=== PATIENT | male | born 1940 | race Caucasian/White ===

== ENCOUNTER → 2016-06-19 | Outpatient (CLI) | payer OTHER, BC ==
[~2016-06-19] MED LIST: ALPR-411 PO; ASPEC81 PO; CARV3.122 PO; CITA20TA9 PO; CLOP1TAB15 PO; FENO134C2 PO; FINA5TAB PO; FOLI1TAB7 PO; LISI-725 PO; LPT/40 PO; MECL1TAB42 PO; METF-384 PO; PANT40TA PO; TERA5CAP PO
[2016-06-19 13:19] LABS: HEMATOCRIT 37.3 % (42-52); MEAN CELL VOLUME 96.4 fL (80-100); MEAN CORPUSCULAR HEMOGLOBIN 31.8 pg (25-34); MEAN PLATELET VOLUME 9.8 fL (7.4-10.4); PLATELET COUNT 204 K/uL (130-400); RED BLOOD COUNT 3.87 M/uL (4.7-6.1); WHITE BLOOD COUNT 26.48 K/uL (4.8-10.8)
[2016-06-19 13:33] LABS: PROTHROMBIN TIME (PATIENT) 10.8 SECONDS (9.0-12.0)
[2016-06-19 14:19] LABS: BLOOD UREA NITROGEN 19 mg/dl (7-18); CALCIUM 9.7 mg/dl (8.5-10.1); CARBON DIOXIDE 24 mmol/L (21-32); CHLORIDE 108 mmol/L (98-107); GLUCOSE 179 mg/dl (70-99); SODIUM 142 mmol/L (136-145)
== END | disposition home or self-care (01) ==
LOC: C.LABMFLN 09:47
PROVIDERS: ATTEND Internal Medicine Cardiovascular Disease
DX: I10 Essential (primary) hypertension (principal); R42 Dizziness and giddiness; R06.09 Other forms of dyspnea; R94.39 Abnormal result of other cardiovascular function study; I42.9 Cardiomyopathy, unspecified

== ENCOUNTER 2016-06-28 06:49 | Observation (INO) | payer OTHER, BC ==
[~2016-06-28] VITALS: Ht 177.8 cm; Wt 86.7 kg
[2016-06-28] VITALS (14 sets, daily range): BP systolic 124–154; BP diastolic 65–80; PULSE 56–69; TEMP 36.6–36.8; O2SAT 87–98; Ht 177.8 cm; Wt 86.7 kg
[~2016-06-28 06:49] MED LIST changes: -ASPEC81 PO
[2016-06-28] MEDS ORDERED: NiCARDipine HCL INJ 2.5 MG/ML 10 ML AMP ONE (10:30)
[2016-06-28] MEDS ORDERED: HEPARIN SOD (PORCINE) 1000 UNIT/ML 10 ML VIAL ONE ×3 (10:30→12:23)
[2016-06-28] MEDS ORDERED: FENTANYL CITRATE INJ 50 MCG/1 ML 2 ML VIAL ONE (10:31)
[2016-06-28] MEDS ORDERED: MIDAZOLAM HCL 1 MG/ML 2ML VIAL ONE (10:31)
[2016-06-28] MEDS ORDERED: NITROGLYCERIN/D5W 100MCG/ML 20ML SYR ONE (10:33)
--- NOTE | 2016-06-28 10:57 | Procedure Note ---
Pre-Mod Sedation Assessment General Date of Moderate Sedation: June 28, 2016. Vital Signs: Vital Signs Past 12 Hours Date Time Temp Pulse Resp B/P Pulse Ox O2 Delivery O2 Flow Rate FiO2 06/28/16 07:13 36.6 68 16 153/73 98 Room Air Review Cardiovascular: regular rate, rhythm, no edema Abdomen: normal bowel sounds, non tender Lungs: chest non-tender, lungs clear Airway Class: III Pre-Sedation Airway Assessment Oral Cavity: Dentures Able to Visualize Vocal Cords: No Short Thick Neck: No Hx of Sleep Apnea: No Smoking Status: Former Smoker Mallampati Classification: Class III ASA Classification: Class II Procedure Planning Contraindications-for Mod Sed: None Yes Notes The planned sedation has been discussed with the patient and consent obtained. I have identified the patient, determined the appropriateness of sedation and have assessed the patient immediately prior to the procedure. All medicine(s) and interventions are by my order.
[2016-06-28] MEDS ORDERED: ACETAMINOPHEN 325 MG TAB PO PRN (13:30)
[2016-06-28] MEDS ORDERED: SODIUM CHLORIDE 0.9% 1000ML 1,000 ML IV SCH (13:30)
[2016-06-28] MEDS ORDERED: CLOPIDOGREL BISULFATE 300 MG TAB PO ONE (13:32)
[2016-06-28] MEDS ORDERED: IV FLUIDS COMPLETED PRN (14:45)
--- NOTE | 2016-06-28 15:19 | Procedure Note ---
Post-Mod Sedation Assessment General Date of Moderate Sedation June 28, 2016. Vital Signs: Vital Signs Past 12 Hours Date Time Temp Pulse Resp B/P Pulse Ox O2 Delivery O2 Flow Rate FiO2 06/28/16 07:13 36.6 68 16 153/73 98 Room Air Review - Discharge Criteria Vital Signs Stable: Yes Alert/Oriented/Conversant: Yes Returned to Baseline Mental St: Yes Nausea Absent/Minimal: Yes Pain/Discomfort/Absent/Minimal: Yes Normal/Baseline Respirations: Yes Active Bleeding?: No Pt Received D/C Instructions: N/A Prescriptions Given: None Specific Proced. D/C Criteria Distal Pulses Present (Cardiac: Yes Groin site assessed-Card Cath: N/A Voided Prior To Discharge: N/A Discharged Patients Adult Escort/Transportation: Yes
[2016-06-28] MEDS: MECLIZINE HCL 25 MG TAB PO SCH ×2 (17:47→21:38)
[2016-06-28] MEDS: CARVEDILOL 3.125 MG TAB PO SCH (21:39)
[2016-06-29] MEDS ORDERED: LORAZEPAM INJ 0.5 MG in SYRINGE 0.75 ML IV PRN (03:00)
[2016-06-29] MEDS ORDERED: LORAZEPAM 2 MG/ML 1 ML VIAL IV PRN (03:00)
[2016-06-29] MEDS ORDERED: NURSING VERBAL MED ORDER ONE ×2 (03:00)
[2016-06-29 04:29] VITALS: BP 126/68; PULSE 70; TEMP 36.8; O2SAT 94
[2016-06-29 06:00] LABS: MEAN CORPUSCULAR HGB CONC 33.2 g/dl (32-36); MEAN PLATELET VOLUME 9.4 fL (7.4-10.4); PLATELET COUNT 170 K/uL (130-400)
[2016-06-29 06:33] LABS: BUN/CREATININE RATIO 18.6 (10-20); CALCIUM 8.2 mg/dl (8.5-10.1); CREATININE 0.86 mg/dl (0.60-1.40); POTASSIUM 3.9 mmol/L (3.5-5.1)
[2016-06-29 06:59] LABS: COMPLETE YES; EOSINOPHIL % 5.3 %; HEMATOCRIT 34.6 % (42-52); MEAN CELL VOLUME 96.6 fL (80-100); MEAN CORPUSCULAR HEMOGLOBIN 32.1 pg (25-34); NEUTROPHILS % 18.4 %; RED BLOOD COUNT 3.58 M/uL (4.7-6.1); SMUDGE CELLS PRESENT
[2016-06-29 07:06] VITALS: BP 131/75; PULSE 71; TEMP 36.7; O2SAT 92
[2016-06-29 08:00] VITALS: O2SAT 96
[2016-06-29] MEDS: CARVEDILOL 3.125 MG TAB PO SCH (08:21)
[2016-06-29] MEDS: MECLIZINE HCL 25 MG TAB PO SCH (08:21)
[2016-06-29] MEDS ORDERED: FINASTERIDE 5 MG TAB PO SCH (09:00)
[2016-06-29] MEDS ORDERED: CLOPIDOGREL BISULFATE 75 MG TAB PO SCH (09:00)
[2016-06-29] MEDS ORDERED: LISINOPRIL 20 MG TAB PO SCH (09:00)
[2016-06-29] MEDS ORDERED: FENOFIBRATE 145 MG TAB PO SCH (09:00)
[2016-06-29] MEDS ORDERED: ATORVASTATIN 40 MG TAB PO SCH (09:00)
[2016-06-29] MEDS ORDERED: ALPRAZOLAM 0.5 MG TAB PO SCH (09:00)
[2016-06-29] MEDS ORDERED: CITALOPRAM 20 MG TAB PO SCH (09:00)
[2016-06-29] MEDS ORDERED: PANTOprazole SOD 40 MG TAB PO SCH (09:00)
[2016-06-29] MEDS ORDERED: ASPIRIN 81 MG ECTAB PO SCH (09:00)
[2016-06-29] MEDS ORDERED: ASPEC81 PO (09:56)
--- NOTE | 2016-06-29 10:00 | Discharge Instructions ---
Discharge Instructions Procedure Procedure Date: June 29, 2016. Reason for Visit: *Dr Spears To Do* Abnormal Stress Echo. Discharge Discharge Date: June 29, 2016. Discharge Diagnosis: Coronary artery disease Last Recorded Wt (Kilograms): 86.700 Medications Restart Stopped Medication(s): Can resume Metformin in 48 hours. Anesthesia Post Anesthesia Instructions: If you have had IV Sedation: * Do not drive today. * Do not make important decisions or sign legal documents today. * Call surgeon for: 1. Temperature elevations greater than 101 degrees F. 2. Uncontrollable pain. 3. Excessive bleeding. 4. Persistent nausea and vomiting. 5. Medication intolerance (nausea, vomiting or rash). * For nausea and vomiting use only clear liquids such as: tea, soda, bouillon until nausea subsides, then gradually increase diet as tolerated. * If you have any concerns or questions, call your cardiologists office. If physician is unavailable and it is an emergency, call 911 or go to the nearest emergency room. Instructions Activity Recommendations: limitations as noted below Recommended Home Diet: resume previous diet Allergies: Coded Allergies: No Known Allergies (Unverified , 02/24/12) Follow Up Additional Instructions: ACTIVITY RECOMMENDATIONS: It is common to feel weak and fatigue for a few days. * Do not drive or operate any motorized equipment for the next day. * Limit stair usage (2 or 3 trips a day only) for the next three days. * Do not lift anything heavier than 10 pounds for the next three days. * Do not engage in vigorous exercise or any sports for the next five days. * You may shower the day after your procedure, but do not immerse the area for three days. Cleanse the site gently with soap and water. SPECIAL CARE INSTRUCTIONS: * You may replace the pressure dressing or band-aid the morning after the procedure. * After your procedure, it is normal to have a small bruise or small lump at the site. Examine your site daily for any change in the bruise or lump, redness, swelling, drainage or numbness. Notify your doctor if any change. BLEEDING: * If there is a small amount of bleeding at the site, lie down and apply firm pressure with a clean cloth for ten minutes. When the bleeding stops, lie quietly keeping the procedure limb straight for six hours. Notify your doctor as soon as possible. * If the bleeding does not stop after ten minutes or if there is a large amount of bleeding or spurting, call 911 immediately. Continue to lie down and hold firm pressure until help arrives. SKIN IRRITATION: * You may experience some redness and/or swelling in the area where radiation was administered. If any skin irritation occurs, please contact your family physician. FOLLOW UP VISIT: Keep any scheduled doctor appointments. Follow-up with: Follow-up with Primary Care next week -- Discuss elevated white blood count and possible lung evaluation and/or home oxygen. Follow-up with Dr. Murrieta in 2-3 weeks. Eugene Daigley Recommendations: Call your doctor if: * Temperature above 101 degrees * Pain not relieved by pain medicine ordered * There is increased drainage or redness from any incision * You have any unanswered questions or concerns. Your Doctors Instructions noted above were prepared by provider Ricardo Spears. Patient Signature Section: Patient Instructions Signature Page Elton Walker Patient (or Guardian) Signature/Date: I have read and understand the instructions given to me by my caregivers. Caregiver/RN/Doctor Signature/Date: The above-named patient and/or guardian has received patient instructions on this date. + Original Patient Signature Page (only) stays with chart. Please make copy for patient.
[2016-06-29 11:28] VITALS: BP 131/75; PULSE 71; TEMP 36.7; O2SAT 96
--- NOTE | 2016-06-30 22:50 | Cardiac Catheterization ---
Procedure Note Procedure Date June 28, 2016. Pre-Procedure Diagnosis Angina, Positive Stress Test, Cardiomyopathy AUC Score 7 Post-Procedure Diagnosis Severe CAD, Successful PCI, Normal Intracardiac Pressures Procedure(s) Performed Coronary Angiography, Left Heart Cath, Drug Eluting Stent, IVUS Wheat Combine Driver Dr. Spears Tumor Registrar(s) adam Estimated Blood Loss 37 Medication(s) Clopidogrel, Fentanyl, Heparin, Nicardipine, Nitroglycerin, Versed, Lidocaine 1% Summary of Findings Indication: Positive stress test Access: 6Fr Right Radial artery Catheters: Hatley, JL4, JR4, AR1, AR2, AL1; EBU 3.5 guide Findings: LM - Luminal irregularities LAD - Calcified, eccentric, 50-60% early-mid LAD stenosis; distal luminal irregularities; small to moderate caliber 1st diagonal with 70-80% proximal stenosis; small 2nd diagonal with 70-80% ostial stenosis Circumflex - Dominant, large caliber vessel with 30-40% mid segment stenosis; large OM3 with mild proximal disease and 80% focal mid segment stenosis; Distal circumflex 80-90% stenosis. RCA - Poorly visualized despite multiple catheters (best seen with AR1). LVEDP - 15 IVUS assessment of proximal to mid LAD -- mild to moderately calcified, max stenosis 50-60% (minimum CSA 4.5 cm2 in the mid segment). LAD stenosis felt to be intermediate. -- PCI -- Antithrombotic therapy: Heparin, Clopidogrel Procedure: Left main cannulated with EBU 3.5 guide BMW placed into distal LAD for IVUS assessment Wire pulled back and passed across OM3 lesion into distal vessel OM3 lesion predilated with 2.5 compliant balloon Dilated lesion stented with 2.75 x 15 Xience HENRIETTA Stent post-dilated with 2.75 noncompliant balloon Wire pulled back and placed across distal circumflex into distal PDA. Lesion predilated with 2.5 balloon Distal circumflex stented with 2.75 x 28 Xience HENRIETTA Stent post-dilated with 3.0 NC balloon. IC vasodilators administered for spasm Post procedure CAN 3 flow, stents well expanded with minimal residual stenosis and no apparent cardiac complications. Arterial Closure: TR Band Summary: 1. Severe multivessel coronary artery disease - 50-60% calcified mid LAD stenosis (appears moderate by IVUS) - 70% proximal 1st diagonal - 80% OM3 - 80-90% distal circumflex - Non-dominant RCA poorly visualized 2. Normal intracardiac filling pressure 3. Successful PCI of OM3 with 2.75 x 15 Xience HENRIETTA and distal circumflex with 2.75 x 28 Xience HENRIETTA Recommendations: To PCU for continued monitoring Loaded with Clopidogrel 300 mg in radiographer cardiac catheterization Continue dual-antiplatelet therapy with ASA and plavix Continue statin, and ASCVD risk factor modification Consult cardiac Rehab If continued symptoms suggestive of angina would consider FFR/PCI of LAD, possible PCI of diagonal. In the future for improved visualization of RCA consider angiography from left radial artery/femoral artery. Hemodynamics Rest Ao: 117/59/83 Final Ao: 133/55/86 LV: 123/15 Recommendations PCI without planned CABG Specimens None Radiation Exposure (mGy) 7187 Contrast (mls) 360 Fluids (cc crystalloids) 222 Drains None Anesthesia Moderate Procedural Complication(s) None Disposition PCU ACC Data Cardiac Status Clinical evaluation leading to the procedure CAD Presntation: Positive Stress Test Anginal Classification: CCS III Heart Failure: No, NYHA Class: CCS I Cardiogenic Shock w/in 24Hrs: No Cardiac Arrest w/in 24Hrs: No Imaging studies past 6 months: Yes Stress studies past 6 months: Yes Standard Exercise Stress Test: No Stress Echocardiogram: Yes - Positive, Risk/Extent of Ischemia (Low) Stress Testing w/SPECT MPI: No Cardiac CTA: No Coronary Anatomy Dominant: Left Left Main (% Stenosis): Normal LAD (% Stenosis): Mid (50-60) D1 (% Stenosis): Proximal (70) D2 (% Stenosis): Ostial (70) Circumflex (% Stenosis): Mid (30-40), Distal OM3 (% Stenosis): Mid (80) Diagnostic Physician's Name: Chinedu Spears MD Status: Elective Closure Device Percutaneous Entry Location: Radial Closure Device: Radial Band Recommendations: PCI without planned CABG PCI Indication: + Stress Test Lesion Segment Name: Distal circumflex Culprit Artery: Yes Stenosis Prior to Rx (%): 80 Chronic Total Occlusion: No IVUS: No FFR: No Pre-Procedure CAN Flow: 3 Previously Treated Lesion: No Lesion Complexity: Non-High/Non-C Lesion Length (mm): 20 Thrombus Present: No Guidewire Across Lesion: Yes Guidewire: Stenosis Post-Procedure (%): 0 Post-Procedure CAN Flow: 3 Device(s) Deployed: Yes Intraprocedure Events Significant Dissection: No Perforation: No
--- NOTE | 2016-07-11 14:22 | DISCHARGE SUMMARY ---
PRINCIPAL DIAGNOSES: Coronary artery disease. PROCEDURES: 1. Coronary angiography. 1. IVUS assessment of mid LAD. 2. PCI of OM3 and distal circumflex with 2 drug-eluting stents (2.75 x 15 Xience, 2.75 x 28 Xience). HISTORY OF PRESENT ILLNESS: Mr. Walker is a very pleasant 76-year-old man followed by Dr. Murrieta for his cardiovascular care as an outpatient. He was referred for cardiac catheterization due to decreased exercise tolerance and dyspnea on exertion occurring over weeks to months. This was noted in the setting of his cardiac risk factors including hypertension, hyperlipidemia, diabetes and a positive stress test which showed poor functional capacity and possible anterior septal, inferior wall ischemia on recent stress echo. HOSPITAL COURSE: The patient was taken to cardiac catheterization lab. He underwent coronary angiography via right radial artery. He was found to have a intermediate lesion that was calcified in his mid LAD along with 70% proximal first diagonal lesion, 80% OM3 lesion and 80-90% distal circumflex. Despite multiple catheters his nondominant RCA was poorly visualized. Mid LAD lesion would further evaluate with IVUS and was thought to be most consistent with borderline disease and decision was made to forgo intervention on the LAD. The patient underwent stent placement with 2 drug-eluting stents to his OM3 and his distal circumflex (OM3 2.75 x 15 Xience, distal circumflex 2.75 x 28 Xience). The patient tolerated the procedure well. He was admitted to telemetry post-procedure for further observation. He had no further events on telemetry. He had no recurrent chest pain overnight. In the morning he was feeling at baseline but it was noted that when he walked round the [place] his oxygen levels did drop into the mid 80s. Did discuss with patient on discharge potential for home oxygen but stated he was not interested. The patient was also noted again to have a significant leukocytosis on repeat follow-up labs. This was noted prior to admission. The patient stated that he has planned followup with hematology in the upcoming weeks. Going forward if the patient would have continued symptoms following hematology workup consideration could be given to further evaluation/intervention of proximal mid LAD and first diagonal. Would attempt to better visualize RCA via femoral approach. The patient discharged to home and will follow up with Dr. Murrieta in 3-4 weeks. DISCHARGE MEDICATIONS: 1. Aspirin 81. 2. Alprazolam 0.25 daily. 3. Atorvastatin 40 mg at bedtime. 4. Carvedilol 3.125 b.i.d. 5. Citalopram 1 tab p.o. daily. 6. Clopidogrel 75 mg daily. 7. Fenofibrate 134 mg p.o. daily. 8. Finasteride 5 mg daily. 9. Folic acid 1 mg daily. 10. Lisinopril 20 mg daily. 11. Meclizine 25 mg t.i.d. 12. Metformin 1000 mg b.i.d. (to be restarted 48 hours after procedure). 13. Protonix 40 mg daily. 14. Terazosin 5 mg daily. MTDD
== END 2016-06-29 11:59 | disposition home or self-care (01) ==
LOC: ENRESERVDT → ENRESERVTM → C.CATH 06:49 → C.2E 13:43
PROVIDERS: ADMIT Internal Medicine Interventional Cardiology; ATTEND Internal Medicine Interventional Cardiology
DX: I25.119 Atherosclerotic heart disease of native coronary artery with unspecified angina pectoris (principal); I42.9 Cardiomyopathy, unspecified; I47.2 Ventricular tachycardia; I10 Essential (primary) hypertension; E78.5 Hyperlipidemia, unspecified; E11.9 Type 2 diabetes mellitus without complications; K21.9 Gastro-esophageal reflux disease without esophagitis; E72.11 Homocystinuria; Z86.73 Personal history of transient ischemic attack (TIA), and cerebral infarction without residual deficits; Z79.84 Long term (current) use of oral hypoglycemic drugs; Z82.49 Family history of ischemic heart disease and other diseases of the circulatory system; Z82.3 Family history of stroke; Z87.891 Personal history of nicotine dependence
CPT/HCPCS: 92978; 93005; 93458; C9600; C9601

== ENCOUNTER → 2017-03-14 | Outpatient (CLI) | payer OTHER, BC ==
[~2017-03-14] MED LIST changes: +ASPEC81 PO; -FOLI1TAB7 PO; +FOLI1TAB8 PO
--- NOTE | 2017-03-14 12:57 | DIAGNOSTIC IMAGING REPORT ---
MRI OF THE BRAIN WITHOUT CONTRAST CLINICAL HISTORY: R42 [id number] COMPARISON STUDY: None. FINDINGS: Sagittal T1, axial diffusion, proton density and T2 weighted axial, coronal FLAIR, and axial T1-weighted images were acquired. No intra or extra-axial mass lesions are visualized Axial diffusion-weighted images reveal no evidence of acute or subacute infarction. There is no evidence of ventricular dilatation. Proton density T2-weighted and FLAIR images reveal moderate foci of increased T2 signal within the white matter, likely on a small vessel basis. There are no abnormal flow voids. 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 Correlation with any history of lymphoma or metastatic disease is recommended. A neck CT could be obtained in follow-up for confirmation and further evaluation. IMPRESSION: 1. No evidence of intracranial mass 2. No evidence of acute or subacute infarction 3. 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 Suspected cervical lymphadenopathy. CT scanning of the neck is recommended in follow-up for confirmation. Electronically signed by: Elijah Soria M.D. 03/14/2017 12:56 PM Dictated Date/Time: 03/14/2017 12:50 PM
== END | disposition home or self-care (01) ==
LOC: C.MRIBC 11:03
PROVIDERS: ATTEND Family Medicine
DX: R42 Dizziness and giddiness (principal)

== ENCOUNTER → 2017-04-08 | Outpatient (CLI) | payer OTHER, BC ==
[~2017-04-08] MED LIST changes: +PERFLUTREN LIPID MICROSPHERE (DEFINITY) IV ONE; +REGADENOSON 0.4 MG/5 ML SYR IV ONE
--- NOTE | 2017-04-08 17:20 | ECHOCARDIOGRAM REPORT ---
*NOTICE TO RECEIVING REPUBLICAN AGENCY This information is strictly Confidential and protected under [place] law. [place] law prohibits you from making any further disclosure of this information unless further disclosure is expressly permitted by the written consent of the person to whom it pertains or is authorized by law. A general authorization for the release of medical or other information is not sufficient for this purpose. Hospital accepts no responsibility if the information is made available to any other person, INCLUDING THE PATIENT. Interpretation Summary * Name: RO KONG Study Date: 04/08/2017 02:29 PM * Patient Location: [facility] HR: 76 * : 1940 (M/d/yyyy) Gender: Male Height: 70 in * Age: 76 yrs Ethnicity: [place] Weight: 206 lb * Ordering Physician: Salomon Murrieta * Referring Physician: Salomon Murrieta. * Performed By: Roshni Mercedes RDCS * * Reason For Study: Arteriosclerosis of coronary artery (414.00)' Cardiomyopathy (425.4); Dyspnea on Exertion (786.09). * BSA: 2.1 m2 * -- Conclusions -- * 1. Normal LV size. Borderline concentric LVH. * 2. Mild LV dysfunction. LVEF 40-45%. Inferior, inferolateral akinesis. Abnormal septal motion consistent with conduction delay. * 3. Grade I diastolic dysfunction. * 4. Normal RV size and function. * 5. Aortic valve sclerosis without stenosis. * 6. Normal estimated RA and PA pressures. * 7. No prior studies for comparison. Procedure Details * A complete two-dimensional transthoracic echocardiogram was performed (2D, M-mode, Doppler and color flow Doppler). Left Ventricle * The left ventricle is grossly normal size. * There is borderline concentric left ventricular hypertrophy. * Ejection Fraction = 40-45%. * Septal motion is consistent with conduction abnormality. Right Ventricle * The right ventricle is grossly normal size. * The right ventricular systolic function is normal as assessed by tricuspid annular plane systolic excursion (TAPSE) (normal >1.5 cm). Atria * Borderline left atrial enlargement. * Right atrial size is normal. * No ASD detected; PFO is not assessed. Mitral Valve * There is mild mitral annular calcification. * There is no mitral valve stenosis. * There is trace mitral regurgitation. Tricuspid Valve * The tricuspid valve is not well visualized, but is grossly normal. * There is no tricuspid stenosis. * There is trace tricuspid regurgitation. Aortic Valve * Aortic valve sclerosis mild, without significant aortic valvular stenosis. * The aortic valve is trileaflet. * No hemodynamically significant valvular aortic stenosis. * There is no significant aortic regurgitation. Pulmonic Valve * The pulmonary valve is inadequately visualized, but the Doppler data is adequate for interpretation. * Pulmonic stenosis is absent. * Trace pulmonic valvular regurgitation. Great Vessels * The aortic root and proximal ascending aorta are normal sized. Pericardium/Pleural * There is no pericardial effusion. Great Vessels * There is no evidence of pulmonary hypertension. The PA systolic pressure is less than 36 mmHg. * Normal inferior vena cava size and collapsability with sniff indicates a normal right atrial pressure of 3 mmHg Left Ventricular Diastolic Function * Grade I diastolic dysfunction, (abnormal relaxation pattern). MMode 2D Measurements and Calculations IVSd 1.1 cm IVSs 1.8 cm LVIDd 5.1 cm LVIDs 4.1 cm LVPWd 1.8 cm LVPWs 2.0 cm IVS/LVPW 0.61 FS 21.1 % EDV(Teich) 126.0 ml ESV(Teich) 72.3 ml EF(Teich) 42.6 % EDV(cubed) 135.7 ml ESV(cubed) 66.7 ml EF(cubed) 50.9 % % IVS thick 66.6 % % LVPW thick 9.4 % LV mass(C)d 318.6 grams LV mass(C)dI 150.7 grams/m\S\2 LV mass(C)s 346.4 grams LV mass(C)sI 163.9 grams/m\S\2 SV(Teich) 53.7 ml SI(Teich) 25.4 ml/m\S\2 SV(cubed) 69.0 ml SI(cubed) 32.6 ml/m\S\2 Ao root diam 3.4 cm Ao root area 9.1 cm\S\2 ACS 1.7 cm LA dimension 3.8 cm LA/Ao 1.1 LVAd ap4 40.0 cm\S\2 LVLd ap4 9.0 cm EDV(MOD-sp4) 147.6 ml EDV(sp4-el) 150.6 ml LVAs ap4 27.5 cm\S\2 LVLs ap4 8.1 cm ESV(MOD-sp4) 79.1 ml ESV(sp4-el) 79.0 ml EF(MOD-sp4) 46.4 % EF(sp4-el) 47.5 % LVAd ap2 38.3 cm\S\2 LVLd ap2 9.3 cm EDV(MOD-sp2) 132.5 ml EDV(sp2-el) 133.1 ml LVAs ap2 28.3 cm\S\2 LVLs ap2 8.7 cm ESV(MOD-sp2) 78.6 ml ESV(sp2-el) 78.0 ml EF(MOD-sp2) 40.7 % EF(sp2-el) 41.4 % LVLd %diff 3.5 % EDV(MOD-bp) 141.9 ml LVLs %diff 7.0 % ESV(MOD-bp) 79.9 ml EF(MOD-bp) 43.7 % SV(MOD-sp4) 68.5 ml SI(MOD-sp4) 32.4 ml/m\S\2 SV(MOD-sp2) 53.9 ml SI(MOD-sp2) 25.5 ml/m\S\2 SV(MOD-bp) 61.9 ml SI(MOD-bp) 29.3 ml/m\S\2 SV(sp4-el) 71.5 ml SI(sp4-el) 33.8 ml/m\S\2 SV(sp2-el) 55.1 ml SI(sp2-el) 26.1 ml/m\S\2 Doppler Measurements and Calculations MV E max eduardo 57.7 cm/sec MV A max eduardo 82.5 cm/sec MV E/A 0.70 MV dec time 0.19 sec Ao V2 max 135.7 cm/sec Ao max PG 7.4 mmHg Ao max PG (full) 5.0 mmHg LV V1 max PG 2.4 mmHg LV V1 max 77.6 cm/sec PA V2 max 109.7 cm/sec PA max PG 4.8 mmHg PI max eduardo 126.0 cm/sec PI max PG 6.3 mmHg PI dec slope 224.3 cm/sec\S\2 PI P1/2t 164.5 msec TR max eduardo 216.1 cm/sec
--- NOTE | 2017-04-08 18:31 | MYOCARDIAL PERFUSION SCAN ---
NUCLEAR STRESS TEST STUDY REQUESTED BY: Dr. Salomon Murrieta. ONE-DAY NUCLEAR MEDICINE TECHNETIUM-99M CARDIOLITE MYOCARDIAL PERFUSION SCAN INDICATION: History of coronary artery disease status post prior PCI with stenting, ischemic cardiomyopathy, and dyspnea on exertion. ECHOCARDIOGRAM: Normal sinus rhythm at a ventricular rate of 77. There was first degree AV block, nonspecific intraventricular conduction delay, left axis deviation and questionable anterolateral and inferior prior infarct. STRESS ECHOCARDIOGRAM: With Lexiscan, there were occasional PVCs. No significant ST abnormalities. Heart rate did not significantly change. TECHNIQUE: For the stress portion of the study 31.1 mCi of technetium-99m Cardiolite IV was injected at 13:25 p.m. on 04/08/2017. Thirty minutes following injection, imaging of the heart was performed in multiple projections. For the rest portion of the study, 11.0 mCi of technetium-99m Cardiolite was injected IV at 11:30. One hour following injection, the imaging of the heart was performed in the same projections. FINDINGS: Raw images were reviewed in detail. There was minimal gut uptake. There was minimal diaphragmatic attenuation and there was abnormal shoulder uptake bilaterally but no other significant extracardiac pathologic uptake. The short axis, vertical long axis, horizontal long axis images were reviewed in detail. There was a primarily fixed moderate intensity moderate in size mid inferior, inferolateral perfusion defect also involving the apical lateral and true apex. There was corresponding wall motion abnormality with hypokinesis in the mid inferior, inferolateral and apical lateral segments as well as true apex. Overall, EF was preserved with an EF of 50%. LV size was normal with an end-diastolic volume of 115. IMPRESSION: 1. Primarily fixed inferolateral, inferior, apical lateral and apical perfusion defect, most consistent with RCA/Circumflex distribution infract. 2. No significant Lexiscan-induced ischemia. 3. Normal left ventricular size. Normal overall left ventricular function with an ejection fraction of 50%. There was inferior, inferolateral regional wall motion abnormalities, corresponding with perfusion defect. 4. Nondiagnostic Lexiscan ECG due to inability to reach target heart rate. MTDD
== END | disposition home or self-care (01) ==
LOC: C.NUCL 10:49
PROVIDERS: ATTEND Internal Medicine Cardiovascular Disease
DX: I25.10 Atherosclerotic heart disease of native coronary artery without angina pectoris (principal); I42.9 Cardiomyopathy, unspecified; R06.09 Other forms of dyspnea

== ENCOUNTER 2019-09-06 14:01 | Inpatient (IN) ==
[2019-09-06] MEDS ORDERED: ALBUT/IPRATROP 3MG/0.5MG NEB 3 ML VIAL NEB STA (14:38)
[2019-09-06 14:45] LABS: Hematocrit (blood only) 39.1 % (42-52); Hemoglobin 13.5 g/dL (14.0-18.0); Mean Corpuscular Hemoglobin 32.5 pg (25-34); Mean Corpuscular Hgb Conc 34.5 g/dL (32-36); Mean Platelet Volume 8.9 fL (7.4-10.4); Platelet Count 153 K/uL (130-400); RDW Coefficient of Variation 14.4 % (11.5-14.5); Red Blood Count 4.16 M/uL (4.7-6.1); White Blood Count 9.49 K/uL (4.8-10.8)
--- NOTE | 2019-09-06 14:45 | Emergency Department Note ---
History of Present Illness General Chief complaint: Shortness of Breath/Dyspnea Stated complaint: HARD TO BREATHE,LOW OX Time Seen by Provider: 09/06/19 14:22 Source: patient Mode of arrival: ambulatory Limitations: no limitations History of Present Illness Provider complaint: sob Onset (ago): month(s) 2 Location: chest, back and abdomen Severity: moderate Pain Consistency: + intermittent Maximum Pain Intensity: 7 Quality: + sharp Relieved By: + none Exacerbated By: + movement Associated symptoms: + cough and + shortness of breath; no chest pain, no fever/chills, no nausea/vomiting and no syncope Treatments prior to arrival: none This is an 79-year-old male who presents with family from home due to increased shortness of breath and hypoxia. Patient states symptoms have been going on for the last 2 months. When he initially saw his PCP he was started on home oxygen via nasal cannula at 3 L/min and given a long steroid taper. Patient states for the first 2 weeks the steroids seem to help, however then he slowly began to get worse, and family states that in the last 2 weeks they noticed his breathing is worse again despite the use of oxygen. Patient does not use any MDIs or nebulizer treatments at home. No known diagnosis of asthma or COPD although patient admits to a prior smoking history. No known exposure to any coronavirus positive individual. No recent fevers or chills. Patient states he has a frequent cough although usually nonproductive. When he does produce phlegm he states it is clear, no hemoptysis. Patient states he gets abdominal pain with coughing. States the pain feels like it starts in his back and radiates forward into his left upper quadrant. No change in bowel movements, no black or bloody stools. Patient states his urine appears dark and has a stronger odor. Patient's family doctor in addition recently started him on furosemide 20 mg thinking maybe he was volume overloaded. Patient states he has been checking his oxygen at home with a pulse oximeter and this morning could not get it out of the 70s despite changing positions. Nurse at bedside notes that on arrival while on his 3 L/min via nasal cannula his oxygen saturations were in the 60s, and he was immediately placed on a nonrebreather with improvement of sats into the 90s. Pt seen during a time of high acuity and national emergency pandemic while wearing PPE. Home Medications Home Medications Medication Instructions Recorded Confirmed Type aspirin 81 mg tablet,delayed 81 mg PO DAILY tab 07/28/18 09/06/19 History release folic acid 1 mg tablet 1 mg PO DAILY #30 tab 07/28/18 09/06/19 History finasteride 5 mg tablet 5 mg PO DAILY #90 tab 08/17/18 09/06/19 Rx citalopram 20 mg tablet 20 mg PO DAILY #30 tab 03/31/19 09/06/19 Rx ascorbate calcium (vitamin C) 500 500 mg PO DAILY 04/01/19 09/06/19 History mg tablet magnesium oxide 400 mg (241.3 mg 400 mg PO DAILY 04/01/19 09/06/19 History magnesium) tablet carvedilol 3.125 mg tablet 3.125 mg PO BID #180 tab 05/26/19 09/06/19 Rx clopidogrel 75 mg tablet 75 mg PO DAILY #90 tab 05/26/19 09/06/19 Rx glimepiride 1 mg tablet 1 mg PO DAILY #90 tab 05/27/19 09/06/19 Rx pantoprazole 40 mg tablet,delayed 40 mg PO DAILY #90 tab 05/27/19 09/06/19 Rx release terazosin 5 mg capsule 5 mg PO DAILY #90 cap 05/27/19 09/06/19 Rx atorvastatin 40 mg tablet 40 mg PO HS #90 tab 05/28/19 09/06/19 Rx fenofibrate micronized 134 mg 134 mg PO DAILY #90 cap NS 05/28/19 09/06/19 Rx capsule furosemide 20 mg tablet 20 mg PO DAILY 08/24/19 09/06/19 History lisinopril 20 mg tablet 10 mg PO DAILY #90 tab 08/24/19 09/06/19 Rx meclizine 25 mg tablet 25 mg PO TID PRN #90 tab 08/24/19 09/06/19 Rx alprazolam 0.25 mg tablet 0.25 mg PO BID PRN #60 tab 08/31/19 09/06/19 Rx Allergies Allergy/AdvReac Type Severity Reaction Status Date / Time atorvastatin [From Lipitor] Allergy Unknown Verified 09/01/19 09:00 rosuvastatin [From Crestor] Allergy Verified 09/01/19 09:00 Past Med/Surg History Medical History (Updated 09/06/19 @ 22:20 by Olive Cantu DO) BPH (benign prostatic hyperplasia) (Chronic) CAD (coronary artery disease) (Chronic) Cardiomyopathy (Chronic) CLL (chronic lymphocytic leukemia) (Chronic) GERD without esophagitis (Chronic) Hemolytic anemia HTN (hypertension) (Chronic) Hyperlipidemia (Chronic) Hypomagnesemia (Chronic) Paroxysmal ventricular tachycardia Stroke (Acute) Type 2 diabetes mellitus (Chronic) Surgical History H/O cardiac catheterization H/O colonoscopy H/O esophagogastroduodenoscopy History of cataract surgery bilateral Hx of cholecystectomy S/P coronary artery stent placement x2 Family History Mother Hypertension Stroke Sister Hypertension Breast cancer Father Myocardial infarction Cardiac disorder Brother Myocardial infarction Stroke Denies family history of Ovarian cancer Prostate cancer Colorectal cancer Social History Smoking Status: Former smoker Age Started Using Tobacco: 21; Age Quit Using Tobacco: 63; packs per day: 1.5; Second Hand Exposure: Yes (spouse/quit early on though); Hx Alcohol Use: No Hx Substance Use: No Preferred Language: Bahraini Communication Ability: Effective Visual Impairment: Partially Limited Hearing Ability: Hard of Hearing Adjunct Professor Of Voice Required: No marital status: Current Living Situation: Spouse current occupational status: employed and retired current occupation: still drives bus for school Feels Safe at Home: Yes Childhood Exposure to Second-Hand Smoke: No caffeine: Yes (coffee 2-3 cups in am) Dental Care, Regularly: No Physical Activity Frequency: Does not Exercise Seatbelt Use: sometimes Sunscreen Use: No Do you think of yourself as: straight/heterosexual Review of Systems See HPI for pertinent positives & negatives. and A total of 10 systems reviewed and were otherwise negative Physical Exam Vital Signs Vital Signs - 24 hr 09/06/19 14:08 09/06/19 14:38 09/06/19 14:54 Temperature 37.2 C Temperature Source Oral Pulse Rate 97 H 91 H Pulse Rate [Left Finger] 87 Pulse Rate from SpO2 Sensor 87 Respiratory Rate 26 H 24 22 Respiratory Effort / Characteristics Spontaneous Blood Pressure 115/66 139/75 Blood Pressure Mean 82 95 Pulse Oximetry 91 98 98 Oxygen Delivery Method Nasal Cannula Room Air Non-rebreather Oxygen Flow Rate 4 15 Fraction of Inspired Oxygen 90 Sepsis Recent Fever Within 48 Hours No Sepsis New/Unexplained Change in Mental Status No Sepsis Action Taken by Nursing No Action Required 09/06/19 15:00 09/06/19 15:30 09/06/19 16:30 Temperature Temperature Source Pulse Rate 91 H 93 H 76 Pulse Rate [Left Finger] Pulse Rate from SpO2 Sensor 86 64 63 Respiratory Rate 20 19 24 Respiratory Effort / Characteristics Blood Pressure 110/73 122/71 133/81 Blood Pressure Mean 84 86 105 Pulse Oximetry 94 95 95 Oxygen Delivery Method Oxymask Oxymask Oxymask Oxygen Flow Rate 7 7 7 Fraction of Inspired Oxygen Sepsis Recent Fever Within 48 Hours Sepsis New/Unexplained Change in Mental Status Sepsis Action Taken by Nursing 09/06/19 17:31 09/06/19 18:00 09/06/19 18:30 Temperature Temperature Source Pulse Rate 82 81 Pulse Rate [Left Finger] Pulse Rate from SpO2 Sensor 69 68 74 Respiratory Rate 30 H 33 H Respiratory Effort / Characteristics Blood Pressure 111/68 125/80 109/73 Blood Pressure Mean 75 101 87 Pulse Oximetry 94 94 95 Oxygen Delivery Method Oxymask Oxymask Oxymask Oxygen Flow Rate 7 7 7 Fraction of Inspired Oxygen Sepsis Recent Fever Within 48 Hours Sepsis New/Unexplained Change in Mental Status Sepsis Action Taken by Nursing 09/06/19 19:00 09/06/19 19:31 09/06/19 20:00 Temperature Temperature Source Pulse Rate 76 84 102 H Pulse Rate [Left Finger] Pulse Rate from SpO2 Sensor 67 84 80 Respiratory Rate 19 17 44 H Respiratory Effort / Characteristics Blood Pressure 124/87 124/89 127/86 Blood Pressure Mean 97 98 102 Pulse Oximetry 96 95 96 Oxygen Delivery Method Oxymask Oxygen Flow Rate 7 Fraction of Inspired Oxygen Sepsis Recent Fever Within 48 Hours Sepsis New/Unexplained Change in Mental Status Sepsis Action Taken by Nursing GENERAL: alert, well appearing, well nourished, no distress, non-toxic, nc and NRB in place EYE EXAM: normal conjunctiva, PERRL and EOM's grossly intact OROPHARYNX: no exudate, no erythema, lips, buccal mucosa, and tongue normal and mucous membranes are moist NECK: supple, no nuchal rigidity, no adenopathy, non-tender LUNGS: Decreased to auscultation. Normal chest wall mechanics, coarse b/l bases, no w/r HEART: no murmurs, S1 normal and S2 normal ABDOMEN: abdomen soft, non-tender, normo-active bowel sounds, no masses, no rebound or guarding. BACK: Back is symmetrical on inspection and there is no deformity, no midline tenderness, no CVA tenderness. SKIN: no rashes and no bruising UPPER EXTREMITIES: upper extremities are grossly normal. FROM, nml pulses b/l. LOWER EXTREMITIES: No pitting edema. FROM, nml pulses b/l. NEURO EXAM: Normal sensorium, cranial nerves II-XII grossly intact, normal speech, no gross weakness of arms, no gross weakness of legs. Gross sensation intact. Course Course 1530: Pt and family updated on results. Pt states he is feeling improved after a duoneb. Pt now on oxymask at 7-8 lpm. 1650: Pt updated on results. Pt states still feels improved on oxymask. Pt states he is still on steroids, takes 20 mg per day and then in 2 days will go down to 10 mg. 1740: Case discussed with Dr. Raines. Administered Medications Discontinued Medications Albuterol (Duoneb) 3 ml NEB NOW STA Stop: 09/06/19 14:39 Last Admin: 09/06/19 14:54 Dose: 3 ml Documented by: [id number] Doxycycline Hyclate (Vibramycin) 100 mg PO NOW STA Stop: 09/06/19 16:55 Last Admin: 09/06/19 17:32 Dose: 100 mg Documented by: [id number] Magnesium Sulfate/Dextrose (Magnesium Sulfate / D5w) 1 gm in 100 mls @ 100 mls/hr IV NOW STA Stop: 09/06/19 16:37 Last Infusion: 09/06/19 17:30 Dose: 0 mls/hr Documented by: [id number] Admin: 09/06/19 16:28 Dose: 100 mls/hr Documented by: [id number] Ceftriaxone Sodium (Rocephin) 2,000 mg in 70 mls @ 140 mls/hr IV NOW STA Stop: 09/06/19 17:23 Last Infusion: 09/06/19 18:42 Dose: 0 mls/hr Documented by: [id number] Admin: 09/06/19 17:32 Dose: 140 mls/hr Documented by: [id number] Azithromycin 500 mg/ Dextrose 255 mls @ 125 mls/hr IV ONE ONE Stop: 09/06/19 22:13 Last Admin: 09/06/19 22:05 Dose: 125 mls/hr Documented by: [id number] Magnesium Sulfate/Dextrose (Magnesium Sulfate / D5w) 1 gm in 100 mls @ 50 mls/hr IV ONE ONE Stop: 09/06/19 22:10 Last Admin: 09/06/19 22:05 Dose: 50 mls/hr Documented by: [id number] Ioversol (Optiray 320 125ml) 118 ml IV ONCE PRN PRN Reason: Interaction Checking Stop: 09/10/19 16:09 Last Admin: 09/06/19 16:10 Dose: 118 ml Documented by: [id number] Medical Decision Making Differential Diagnosis Differential diagnoses includes but is not limited to pneumonia, bronchitis, COPD/Asthma exacerbation, pneumothorax, pulmonary embolism, congestive heart failure, acute coronary syndrome Medical Records Attestation: I reviewed the patient's medical records. Home Medications Current Medication List: was personally reviewed by me Laboratory Data Attestation: I reviewed the patient's lab results. Result diagrams: 09/06/19 14:35 09/06/19 14:35 Lab Results 09/06/19 09/06/19 09/06/19 Range/Units 14:19 14:35 14:35 WBC 9.49 (4.8-10.8) K/uL RBC 4.16 L (4.7-6.1) M/uL Hgb 13.5 L (14.0-18.0) g/dL Hct 39.1 L (42-52) % MCV 94.0 (80-100) fL MCH 32.5 (25-34) pg MCHC 34.5 (32-36) g/dL RDW Std Deviation 49.0 H (36.4-46.3) fL RDW Coeff of Ra 14.4 (11.5-14.5) % Plt Count 153 (130-400) K/uL MPV 8.9 (7.4-10.4) fL Neutrophils % (Manual) 74.7 % Lymphocytes % (Manual) 14.8 % Monocytes % (Manual) 5.2 % Eosinophils % (Manual) 3.5 % Basophils % (Manual) 0.9 % Myelocytes % (Man) 0.9 % Neutrophils # (Manual) 7.09 H (1.4-6.5) K/uL Total Absolute Neuts 7.09 H (1.4-6.5) K/uL Lymphocytes # (Manual) 1.40 (1.2-3.4) K/uL Total Abs Lymphocytes 1.40 (1.2-3.4) K/uL Monocytes # (Manual) 0.49 (0.11-0.59) K/uL Eosinophils # (Manual) 0.33 (0-0.5) K/uL Basophils # (Manual) 0.09 (0-0.2) K/uL Myelocytes # (Manual) 0.09 H (0-0) K/uL Dohle Bodies 1+ ABG pH (7.35-7.45) ABG pCO2 (35-46) mmHg ABG pO2 (80-95) mmHg ABG HCO3 (19-24) mmol/L ABG O2 Saturation (90-95) % ABG Base Excess (-9-1.8) mEq/L Anoop Test (Pos) Barometric Pressure mm/Hg Oxygen Given Sodium 138 (136-145) mmol/L Potassium 4.3 (3.5-5.1) mmol/L Chloride 101 (98-107) mmol/L Carbon Dioxide 29 (21-32) mmol/L Anion Gap 8.0 (3-11) BUN 22 H (7-18) mg/dl Creatinine 1.31 (0.6-1.4) mg/dl Est Cr Clr Drug Dosing 50.2 ml/min Est GFR ( Amer) 59.2 Est GFR (Non-Af Amer) 51.1 BUN/Creatinine Ratio 17.0 (10-20) Glucose 331 H* (70-99) mg/dl Calcium 9.5 (8.5-10.1) mg/dl Magnesium 1.7 L (1.8-2.4) mg/dl Total Bilirubin 1.0 (0.2-1) mg/dl AST 30 (15-37) U/L ALT 19 (12-78) U/L Alkaline Phosphatase 60 (45-117) U/L Troponin I 0.019 (0-0.045) ng/ml NT-Pro-B Natriuret Pep 245 (0-1800) pg/ml Total Protein 7.0 (6.4-8.2) gm/dl Albumin 3.0 L (3.4-5.0) gm/dl Globulin 4.0 (2.5-4.0) gm/dl Albumin/Globulin Ratio 0.8 L (0.9-2) Lipase 76 (73-393) U/L Beta-Hydroxybutyric Acd 1.62 (0.2-2.81) mg/dl Urine Color Yellow Urine Appearance Clear (Clear) Urine pH 5.0 (4.5-7.5) Ur Specific Rebuck 1.015 (1.000-1.030) Urine Protein Negative (Negative) Urine Glucose (UA) 2+ H (Negative) Urine Ketones Negative (Negative) Urine Blood Negative (Negative) Urine Nitrite Negative (Negative) Urine Bilirubin Negative (Negative) Urine Urobilinogen Negative (Negative) Ur Leukocyte Esterase Negative (Negative) COVID-19 PCR (Negative) SARS-CoV-2 RNA (RT-PCR) 09/06/19 09/06/19 09/06/19 Range/Units 15:19 18:33 18:33 WBC (4.8-10.8) K/uL RBC (4.7-6.1) M/uL Hgb (14.0-18.0) g/dL Hct (42-52) % MCV (80-100) fL MCH (25-34) pg MCHC (32-36) g/dL RDW Std Deviation (36.4-46.3) fL RDW Coeff of Ra (11.5-14.5) % Plt Count (130-400) K/uL MPV (7.4-10.4) fL Neutrophils % (Manual) % Lymphocytes % (Manual) % Monocytes % (Manual) % Eosinophils % (Manual) % Basophils % (Manual) % Myelocytes % (Man) % Neutrophils # (Manual) (1.4-6.5) K/uL Total Absolute Neuts (1.4-6.5) K/uL Lymphocytes # (Manual) (1.2-3.4) K/uL Total Abs Lymphocytes (1.2-3.4) K/uL Monocytes # (Manual) (0.11-0.59) K/uL Eosinophils # (Manual) (0-0.5) K/uL Basophils # (Manual) (0-0.2) K/uL Myelocytes # (Manual) (0-0) K/uL Dohle Bodies ABG pH 7.45 (7.35-7.45) ABG pCO2 45 (35-46) mmHg ABG pO2 82 (80-95) mmHg ABG HCO3 30 H (19-24) mmol/L ABG O2 Saturation 96.4 H (90-95) % ABG Base Excess 5.5 H (-9-1.8) mEq/L Anoop Test Pos (Pos) Barometric Pressure 727.9 mm/Hg Oxygen Given 7 L Sodium (136-145) mmol/L Potassium (3.5-5.1) mmol/L Chloride (98-107) mmol/L Carbon Dioxide (21-32) mmol/L Anion Gap (3-11) BUN (7-18) mg/dl Creatinine (0.6-1.4) mg/dl Est Cr Clr Drug Dosing ml/min Est GFR ( Amer) Est GFR (Non-Af Amer) BUN/Creatinine Ratio (10-20) Glucose (70-99) mg/dl Calcium (8.5-10.1) mg/dl Magnesium (1.8-2.4) mg/dl Total Bilirubin (0.2-1) mg/dl AST (15-37) U/L ALT (12-78) U/L Alkaline Phosphatase (45-117) U/L Troponin I (0-0.045) ng/ml NT-Pro-B Natriuret Pep (0-1800) pg/ml Total Protein (6.4-8.2) gm/dl Albumin (3.4-5.0) gm/dl Globulin (2.5-4.0) gm/dl Albumin/Globulin Ratio (0.9-2) Lipase (73-393) U/L Beta-Hydroxybutyric Acd (0.2-2.81) mg/dl Urine Color Urine Appearance (Clear) Urine pH (4.5-7.5) Ur Specific Rebuck (1.000-1.030) Urine Protein (Negative) Urine Glucose (UA) (Negative) Urine Ketones (Negative) Urine Blood (Negative) Urine Nitrite (Negative) Urine Bilirubin (Negative) Urine Urobilinogen (Negative) Ur Leukocyte Esterase (Negative) COVID-19 PCR NEGATIVE (Negative) SARS-CoV-2 RNA (RT-PCR) Cancelled Imaging Data Radiologist's Impression: XR chest 1V portable HISTORY: 79 years-old Male sob acute shortness of breath COMPARISON: None TECHNIQUE: Portable erect AP view of the chest FINDINGS: Cardiac silhouette is enlarged. Pulmonary vascular congestion. Mild diffuse interstitial coarsening. No pneumothorax, large pleural effusion or airspace consolidation typical for pneumonia. Mild bibasilar densities suggest probable atelectasis. IMPRESSION: 1. Cardiomegaly with pulmonary vascular congestion. 2. Diffuse interstitial coarsening. Findings may be on a chronic basis, r epresent pulmonary edema or atypical pneumonitis. ACT 112: Negative or not required by law. The above report was generated using voice recognition software. It may contain grammatical, syntax or spelling errors. Electronically signed by: Sebastián Romo M.D. 09/06/2019 2:[address] ANGIOGRAM OF THE CHEST CLINICAL HISTORY: Atypical chest pain. Possible pulmonary embolism. COMPARISON STUDY: Chest x-ray dated 09/06/2019 TECHNIQUE: Following the IV administration of 118 mL of Optiray-320, CT angiogram of the thorax was performed from the thoracic inlet to the lung bases utilizing the pulmonary embolus protocol. Images are reviewed in the axial, sagittal, and coronal planes. IV contrast was administered without complication. MIP imaging was performed. A dose lowering technique was utilized adhering to the principles of ALARA. CT DOSE: 684.63 mGy.cm FINDINGS: There are mildly enlarged mediastinal and hilar lymph nodes. The heart is enlarged with coronary artery calcifications. There is no evidence of thoracic artery dilatation. There were no pulmonary artery filling defects to indicate acute pulmonary embolism. No pleural effusions are visualized. There is increased groundglass attenuation of the lungs with a mild mosaic pattern. There is mild bronchiectasis. There is subpleural reticulation. There is a more focal area of nodular consolidation within the right middle lobe measuring 4 cm. An infectious/inflammatory process is favored over neoplasm. A short-term follow-up CT scan is recommended. IMPRESSION: 1. No evidence of acute pulmonary embolism 2. Mild mediastinal and hilar lymphadenopathy 3. Suspected underlying interstitial lung disease with subpleural reticulation, bronchiectasis, and groundglass opacities with a mosaic distribution. 3. 4 cm focal area of nodular consolidation within the right middle lobe. An infectious/inflammatory process is favored over neoplasm. A 1 to 2 month follow- up CT scan is recommended. ACT 112: Negative or not required by law. Electronically signed by: Elijah Soria M.D. 09/06/2019 4:23 PM ECG Data Attestation: I personally reviewed and interpreted this ECG as follows: Indication: + SOB/dyspnea Rate (beats per minute): 104 Rhythm: + sinus tachycardia ECG Intervals/blocks: + Right Bundle branch block and + Prolonged QT ECG [place]: + Left axis deviation ECG ST segments: + Normal ST segments Comparison ECG Date: from (06/28/2016) Change: no significant change (no significant change in morphology) Blood Pressure Blood Pressure Findings: Elevated blood pressure Blood Pressure Disposition: further management by hospitalist MDM Narrative This is an elderly patient who presents here due to worsening shortness of breath despite use of home oxygen and recent steroid taper. Patient found to be markedly hypoxic in the 60s on arrival here however improved with a nonrebreather. Patient was afebrile, was awake and talking to me in no significant distress. Labs are drawn and sent, chest x-ray performed, ABG performed. To follow-up findings on chest x-ray, CT of the chest was also performed. No evidence of PE or overt CHF, likely right middle lobe pneumonia was noted. Patient had no leukocytosis or fever here. No recent exposure to any known sick contact. No prior history of pneumonia. While I do suspect underlying COPD given the patient's prior smoking history, he does not carry th is is a formal diagnosis. Patient covered with antibiotics for likely community-acquired pneumonia. Discussed with hospitalist possible utility for coronavirus testing as a precaution. Patient remained hemodynamically stable in the emergency room. He was able to be weaned off of a nonrebreather to an oxygen mask and was able to hold oxygen saturations in the low to mid 90s and felt improved. Patient was given DuoNeb treatment. I deferred any additional steroid treatment to the hospitalist as the patient is currently finishing a long steroid taper. No evidence of ACS. No ectopy or dysrhythmia noted on telemetry. BNP reassuring, and no other physical exam findings to suggest evolving CHF. No evidence of bacteremia/sepsis. Patient was found to be hyperglycemic, and does have a history of diabetes. No history of DKA. Patient's magnesium level was repleted. Patient and family were kept aware of all results and were in agreement with plan. An order was placed for continuous cardiac monitoring. The monitor shows a rate of 88 with normal sinus rhythm. Impression & Plan Acute dyspnea, Hypomagnesemia, Hypoxia, Pneumonia, Acute hyperglycemia Discharge Plan Visit Data *Final* Discharge Date/Time: 09/06/19 22:12 Chief Complaint: Shortness of Breath/Dyspnea Stated Complaint: HARD TO BREATHE,LOW OX ED Provider: Olive Cantu Discharge Problem: Acute dyspnea, Hypomagnesemia, Hypoxia, Pneumonia, Acute hyperglycemia Patient Disposition: Admitted As Inpatient Discharge Instructions Interventions: ED Discharge Assessment Last Done: 09/06/19 22:12 Discharge Problem: Pneumonia Qualifiers: Pneumonia type: due to unspecified organism Laterality: right Lung location: middle lobe of lung Qualified Code(s): J18.9 - Pneumonia, unspecified organism
--- NOTE | 2019-09-06 14:50 | XRay Report ---
XR chest 1V portable HISTORY: 79 years-old Male sob acute shortness of breath COMPARISON: None TECHNIQUE: Portable erect AP view of the chest FINDINGS: Cardiac silhouette is enlarged. Pulmonary vascular congestion. Mild diffuse interstitial coarsening. No pneumothorax, large pleural effusion or airspace consolidation typical for pneumonia. Mild bibasil ar densities suggest probable atelectasis. IMPRESSION: 1. Cardiomegaly with pulmonary vascular congestion. 2. Diffuse interstitial coarsening. Findings may be on a chronic basis, represent pulmonary edema or atypical pneumonitis. ACT 112: Negative or not required by law. The above report was generated using voice recognition software. It may contain grammatical, syntax o r spelling errors. Electronically signed by: Sebastián Romo M.D. 09/06/2019 2:49 PM
[2019-09-06 14:54] LABS: Appearance Urine Clear (Clear); Bilirubin Urine Negative (Negative); Blood Urine Negative (Negative); Color Urine Yellow; Glucose Urine UA 2+ (Negative); Ketones Urine Negative (Negative); Leukocyte Esterase Urine Negative (Negative); Nitrite Urine Negative (Negative); Protein Urine Negative (Negative); Specific Gravity Urine 1.015 (1.000-1.030); Urobilinogen Urine Negative (Negative)
[2019-09-06 15:17] LABS: Albumin Globulin Ratio 0.8 (0.9-2); Calcium 9.5 mg/dl (8.5-10.1); Creatinine Clr Calc Pharmacy 50.2 ml/min; Est GFR (African American) 59.2; Est GFR (Non-African American) 51.1; Magnesium 1.7 mg/dl (1.8-2.4); Potassium 4.3 mmol/L (3.5-5.1); Troponin I 0.019 ng/ml (0-0.045)
[2019-09-06 15:31] LABS: Beta-Hydroxybutyrate 1.62 mg/dl (0.2-2.81)
[2019-09-06 15:33] LABS: Base Excess ABG 5.5 mEq/L (-9-1.8); HCO3 ABG 30 mmol/L (19-24); Oxygen Saturation ABG 96.4 % (90-95); PCO2 ABG 45 mmHg (35-46); PO2 ABG 82 mmHg (80-95); pH ABG 7.45 (7.35-7.45)
[2019-09-06] MEDS ORDERED: MAGNESIUM SULFATE / D5W 1 GM/100 ML BAG IV STA (15:38)
[2019-09-06 15:59] LABS: ANC (manual) 7.09 K/uL (1.4-6.5); Basophils # (manual) 0.09 K/uL (0-0.2); Basophils % (manual) 0.9 %; Dohle Bodies 1+; Eosinophils # (manual) 0.33 K/uL (0-0.5); Eosinophils % (manual) 3.5 %; Lymphocytes % (manual) 14.8 %; Monocytes # (manual) 0.49 K/uL (0.11-0.59); Monocytes % (manual) 5.2 %; Myelocytes # (manual) 0.09 K/uL (0-0); Myelocytes % (manual) 0.9 %; Neutrophils # (manual) 7.09 K/uL (1.4-6.5); Neutrophils % (manual) 74.7 %
[2019-09-06 16:08] LABS: Allen Test Pos (Pos)
[2019-09-06] MEDS ORDERED: OPTIRAY 320 125ml IV PRN (16:10)
--- NOTE | 2019-09-06 16:25 | CT Scan Report ---
CT ANGIOGRAM OF THE CHEST CLINICAL HISTORY: Atypical chest pain. Possible pulmonary embolism. COMPARISON STUDY: Chest x-ray dated 09/06/2019 TECHNIQUE: Following the IV administration of 118 mL of Optiray-320, CT angiogram of the thorax was p erformed from the thoracic inlet to the lung bases utilizing the pulmonary embolus protocol. Images a re reviewed in the axial, sagittal, and coronal planes. IV contrast was administered without complica tion. MIP imaging was performed. A dose lowering technique was utilized adhering to the principles o f ALARA. CT DOSE: 684.63 mGy.cm FINDINGS: There are mildly enlarged mediastinal and hilar lymph nodes. The heart is enlarged with coronary artery calcifications. There is no evidence of thoracic artery di latation. There were no pulmonary artery filling defects to indicate acute pulmonary embolism. No pleural effusions are visualized. There is increased groundglass attenuation of the lungs with a mild mosaic pattern. There is mild bro nchiectasis. There is subpleural reticulation. There is a more focal area of nodular consolidation wi thin the right middle lobe measuring 4 cm. An infectious/inflammatory process is favored over neoplas m. A short-term follow-up CT scan is recommended. IMPRESSION: 1. No evidence of acute pulmonary embolism 2. Mild mediastinal and hilar lymphadenopathy 3. Suspected underlying interstitial lung disease with subpleural reticulation, bronchiectasis, and g roundglass opacities with a mosaic distribution. 3. 4 cm focal area of nodular consolidation within the right middle lobe. An infectious/inflammatory process is favored over neoplasm. A 1 to 2 month follow-up CT scan is recommended. ACT 112: Negative or not required by law. Electronically signed by: Elijah Soria M.D. 09/06/2019 4:23 PM
[2019-09-06] MEDS ORDERED: cefTRIAXone SODIUM 2,000 MG/70 ML BAG IV STA (16:54)
[2019-09-06] MEDS ORDERED: DOXYCYCLINE HYCLATE 100 MG CAP PO STA (16:54)
--- NOTE | 2019-09-06 19:06 | History & Physical Report ---
Date of Service September 06, 2019 Assessment & Plan (1) Hypoxia: Presented with acute on chronic respiratory failure with hypoxia, pulse ox in the 60s requiring nonrebreather upon arrival Treated with duo nebs and IV antibiotics for right middle lobe pneumonia as below as well as supplemental O2 and had significant improvement CT angiogram negative for PE, proBNP normal which argues against acute CHF as the cause. He also has suspected COPD and follows with pulmonology as an outpatient, is on chronic O2 at home He is not a CO2 retainer as per his ABG COVID-19 test negative Admit to PCU -Continue supplemental O2 to keep pulse ox greater than 90% given history of suspected COPD -Continue scheduled duo nebs -Treating for pneumonia with IV antibiotics as below -Baseline O2 at home is 3 L nasal cannula at rest and 5 L with exertion (2) Pneumonia: With bronchiectasis and right middle lobe most likely pneumonia seen on CT angiogram of the chest He did not have a fever, no leukocytosis, so somewhat atypical for community- acquired pneumonia however he is immunosuppressed with history of CLL and is on chronic prednisone for hemolytic anemia -Treat with IV ceftriaxone and IV azithromycin for community-acquired pneumonia -Recommend repeat CT scanning of the chest in 1 to 2 months with his title manager to ensure this is not a postobstructive pneumonia given his significant history of smoking-this was discussed with the patient in detail at the time of admission -Pulmonary toilet, nebulizers Oxygen as needed Blood cultures were not drawn in the ER prior to treatment with antibiotics- would only draw now if spikes a fever (3) Paroxysmal ventricular tachycardia: With a history of such -Monitor on telemetry -Continue carvedilol (4) CAD (coronary artery disease): With a history of CAD status post PCI of the OM 3 and circumflex No acute ischemia on ECG here today, no chest pain, troponin is negative -Continue aspirin and Plavix (which she is on for history of stroke) -Continue statin, Coreg, and lisinopril -Follows with cardiology (5) Cardiomyopathy: With a likely ischemic cardiomyopathy with only mild LV dysfunction with an EF of 45-50% on echo from 12/2018 -Continue home Lasix 20 mg p.o. once daily He is not volume overloaded at this time (6) BPH (benign prostatic hyperplasia): Continue Hytrin No acute issues (7) CLL (chronic lymphocytic leukemia): Has gone through 2 rounds of chemotherapy Seems controlled at this time, counts look good on CBC -Follows with oncology at [facility] Recently received Rituxan and is on prednisone taper down for hemolytic anemia (8) GERD without esophagitis: Continue PPI (9) Hyperlipidemia: Continue statin (10) HTN (hypertension): Blood pressures are controlled -Continue home carvedilol, lisinopril (11) Type 2 diabetes mellitus: With significant hyperglycemia in the ER in the 300s likely secondary to stress response -Insulin sliding scale and Accu-Cheks before meals and at bedtime May need to add on Lantus if hyperglycemia persists Hold home glimepiride Hemoglobin A1c is uncontrolled on 08/31 at 8.5% Likely secondary to recent course of prednisone over several months for his hemolytic anemia (12) Hemolytic anemia: As noted above, 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 and is on prednisone with improvement Continue prednisone 20 mg daily, but then he was supposed to go down to 10 mg daily on 09/07-May need to continue at higher dose for COPD exacerbation with pneumonia as above (13) Stroke: With a history of such -Continue aspirin, Plavix, statin (14) COPD (chronic obstructive pulmonary disease): Follows with pulmonology at [facility], prednisone as above Is not on any home inhalers, unclear if his had PFTs ever in the past, but would presume so since he follows with pulmonology (15) DVT prophylaxis: Lovenox SQ Disposition-admit to PCU, expected least a 2 midnight stay History of Present Illness Chief Complaint: Low oxygen levels, cough, shortness of breath Primary Care Provider: Tima Huffman DO This patient is an 79-year-old male with a history of CAD status post PCI, chronic dyspnea with exertion, chronic atypical chest pain, chronic respiratory failure with hypoxia, CVA, ischemic cardiomyopathy with EF 45-50%, HTN, dyslipidemia, paroxysmal VT, and 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 He then noted that his pulse ox was in the 60s on his home pulse ox which was consistent with his pulse ox when he first came into the ER today. He denies any fevers or chills at home. He has only been bringing up a small amount of clear sputum. He denies any chest pain. He has been on home oxygen now for several months at 3 L nasal cannula at rest and 5 L nasal cannula with exertion. In the ER, he was placed immediately on a nonrebreather and given a nebulizer treatment after which he felt much better. He was weaned down to 7 L via oxygen mask when I saw him at the time of admission. An ABG showed pH 7.45, PaCO2 45, PaO2 82 on 7 L O2. A proBNP was normal, troponin was negative, he was afebrile and had no leukocytosis. A CT angiogram of the chest however was negative for PE, but showed underlying interstitial lung disease with subpleural reticulation, bronchiectasis, and groundglass opacities with a mosaic distribution as well as a 4 cm focal area of nodular consolidation within the right middle lobe favoring infectious/inflammatory process over neoplasm. He was given a dose of IV Rocephin and IV doxycycline in the ER and was much improved when I saw him. Allergies Allergy/AdvReac Type Severity Reaction Status Date / Time atorvastatin [From Lipitor] Allergy Unknown Verified 09/01/19 09:00 rosuvastatin [From Crestor] Allergy Verified 09/01/19 09:00 Home Medications Home Medications Medication Instructions Recorded Confirmed Type aspirin 81 mg tablet,delayed 81 mg PO DAILY tab 07/28/18 09/06/19 History release folic acid 1 mg tablet 1 mg PO DAILY #30 tab 07/28/18 09/06/19 History finasteride 5 mg tablet 5 mg PO DAILY #90 tab 08/17/18 09/06/19 Rx citalopram 20 mg tablet 20 mg PO DAILY #30 tab 03/31/19 09/06/19 Rx ascorbate calcium (vitamin C) 500 500 mg PO DAILY 04/01/19 09/06/19 History mg tablet magnesium oxide 400 mg (241.3 mg 400 mg PO DAILY 04/01/19 09/06/19 History magnesium) tablet carvedilol 3.125 mg tablet 3.125 mg PO BID #180 tab 05/26/19 09/06/19 Rx clopidogrel 75 mg tablet 75 mg PO DAILY #90 tab 05/26/19 09/06/19 Rx glimepiride 1 mg tablet 1 mg PO DAILY #90 tab 05/27/19 09/06/19 Rx pantoprazole 40 mg tablet,delayed 40 mg PO DAILY #90 tab 05/27/19 09/06/19 Rx release terazosin 5 mg capsule 5 mg PO DAILY #90 cap 05/27/19 09/06/19 Rx fenofibrate micronized 134 mg 134 mg PO DAILY #90 cap NS 05/28/19 09/06/19 Rx capsule furosemide 20 mg tablet 20 mg PO DAILY 08/24/19 09/06/19 History lisinopril 20 mg tablet 10 mg PO DAILY #90 tab 08/24/19 09/06/19 Rx meclizine 25 mg tablet 25 mg PO TID PRN #90 tab 08/24/19 09/06/19 Rx alprazolam 0.25 mg tablet 0.25 mg PO BID PRN #60 tab 08/31/19 09/06/19 Rx Past Med/Surg History Medical History BPH (benign prostatic hyperplasia) (Chronic) CAD (coronary artery disease) (Chronic) Cardiomyopathy (Chronic) CLL (chronic lymphocytic leukemia) (Chronic) GERD without esophagitis (Chronic) Hemolytic anemia HTN (hypertension) (Chronic) Hyperlipidemia (Chronic) Hypomagnesemia (Chronic) Paroxysmal ventricular tachycardia Stroke (Acute) Type 2 diabetes mellitus (Chronic) Surgical History H/O cardiac catheterization H/O colonoscopy H/O esophagogastroduodenoscopy History of cataract surgery bilateral Hx of cholecystectomy S/P coronary artery stent placement x2 Family History Mother Hypertension Stroke Sister Hypertension Breast cancer Father Myocardial infarction Cardiac disorder Brother Myocardial infarction Stroke Denies family history of Ovarian cancer Prostate cancer Colorectal cancer Social History Smoking Status: Former smoker Age Started Using Tobacco: 21; Age Quit Using Tobacco: 63; packs per day: 1.5; Second Hand Exposure: Yes (spouse/quit early on though); Hx Alcohol Use: No Hx Substance Use: No Preferred Language: Malay Communication Ability: Effective Visual Impairment: Partially Limited Hearing Ability: Hard of Hearing Chemical Engineering Professor Required: No Beliefs That Will Affect Care: None marital status: Current Living Situation: Spouse current occupational status: employed and retired current occupation: still drives bus for school Other Information That Helps Us Care for You: No Feels Safe at Home: Yes Safety Concerns: Feels Safe At This Time Childhood Exposure to Second-Hand Smoke: No caffeine: Yes (coffee 2-3 cups in am) Dental Care, Regularly: No Physical Activity Frequency: Does not Exercise Seatbelt Use: sometimes Sunscreen Use: No Do you think of yourself as: straight/heterosexual Review of Systems Review of Systems: All systems reviewed & are unremarkable except as noted in HPI & below No headache or sore throat, no chest pain, no abdominal pain, no nausea/vomiting/diarrhea, no urinary symptoms. No fevers Physical Exam Constitutional: WD/WN, vitals as above Eyes: PERRL, conjunctivae normal, anicteric sclerae ENMT: external ear and nose normal, oropharynx normal Neck: trachea midline, no thyromegaly Respiratory: normal respiratory effort (With oxygen mask in place) Auscultation: + rhonchi (Bilateral lower lung smiley) and + wheezes (Diffuse, expiratory); no crackles Cardiovascular: RRR, no murmur, no edema Chest (Breasts): Chest: normal inspection of chest Gastrointestinal (Abdomen): normal bowel sounds, soft, nontender, no hepatosplenomegaly Musculoskeletal: Extremities: extremities normal to inspection; no cyanosis and no clubbing Skin: no rashes, warm and dry Neurologic: moves all extremities and awake; no focal motor deficits Psychiatric: A+Ox3, euthymic affect Lymphatic: no lymphedema Results & Data Results & Data ([facility]) Vital Signs (Past 12 Hours) Vital Signs Temp Pulse Pulse Resp BP Pulse Ox 09/06/19 18:30 81 33 H 109/73 95 09/06/19 18:00 82 30 H 125/80 94 09/06/19 17:31 111/68 94 09/06/19 16:30 76 24 133/81 95 09/06/19 15:30 93 H 19 122/71 95 09/06/19 15:00 91 H 20 110/73 94 09/06/19 14:54 87 22 98 09/06/19 14:38 91 H 24 139/75 98 09/06/19 14:08 37.2 C 97 H 26 H 115/66 91 Laboratory Results 09/06/19 09/06/19 09/06/19 Range/Units 22:49 21:07 18:33 WBC (4.8-10.8) K/uL RBC (4.7-6.1) M/uL Hgb (14.0-18.0) g/dL Hct (42-52) % MCV (80-100) fL MCH (25-34) pg MCHC (32-36) g/dL RDW Std Deviation (36.4-46.3) fL RDW Coeff of Ra (11.5-14.5) % Plt Count (130-400) K/uL MPV (7.4-10.4) fL Neutrophils % (Manual) % Lymphocytes % (Manual) % Monocytes % (Manual) % Eosinophils % (Manual) % Basophils % (Manual) % Myelocytes % (Man) % Neutrophils # (Manual) (1.4-6.5) K/uL Total Absolute Neuts (1.4-6.5) K/uL Lymphocytes # (Manual) (1.2-3.4) K/uL Total Abs Lymphocytes (1.2-3.4) K/uL Monocytes # (Manual) (0.11-0.59) K/uL Eosinophils # (Manual) (0-0.5) K/uL Basophils # (Manual) (0-0.2) K/uL Myelocytes # (Manual) (0-0) K/uL Dohle Bodies ABG pH (7.35-7.45) ABG pCO2 (35-46) mmHg ABG pO2 (80-95) mmHg ABG HCO3 (19-24) mmol/L ABG O2 Saturation (90-95) % ABG Base Excess (-9-1.8) mEq/L Anoop Test (Pos) Barometric Pressure mm/Hg Oxygen Given Sodium (136-145) mmol/L Potassium (3.5-5.1) mmol/L Chloride (98-107) mmol/L Carbon Dioxide (21-32) mmol/L Anion Gap (3-11) BUN (7-18) mg/dl Creatinine (0.6-1.4) mg/dl Est Cr Clr Drug Dosing ml/min Est GFR ( Amer) Est GFR (Non-Af Amer) BUN/Creatinine Ratio (10-20) Glucose (70-99) mg/dl POC Glucose 266 H (70-99) mg/dl Calcium (8.5-10.1) mg/dl Magnesium (1.8-2.4) mg/dl Total Bilirubin (0.2-1) mg/dl AST (15-37) U/L ALT (12-78) U/L Alkaline Phosphatase (45-117) U/L Troponin I 0.018 (0-0.045) ng/ml NT-Pro-B Natriuret Pep (0-1800) pg/ml Total Protein (6.4-8.2) gm/dl Albumin (3.4-5.0) gm/dl Globulin (2.5-4.0) gm/dl Albumin/Globulin Ratio (0.9-2) Lipase (73-393) U/L Beta-Hydroxybutyric Acd (0.2-2.81) mg/dl Urine Color Urine Appearance (Clear) Urine pH (4.5-7.5) Ur Specific [place] (1.000-1.030) Urine Protein (Negative) Urine Glucose (UA) (Negative) Urine Ketones (Negative) Urine Blood (Negative) Urine Nitrite (Negative) Urine Bilirubin (Negative) Urine Urobilinogen (Negative) Ur Leukocyte Esterase (Negative) COVID-19 PCR NEGATIVE (Negative) SARS-CoV-2 RNA (RT-PCR) 09/06/19 09/06/19 09/06/19 Range/Units 18:33 15:19 14:35 WBC (4.8-10.8) K/uL RBC (4.7-6.1) M/uL Hgb (14.0-18.0) g/dL Hct (42-52) % MCV (80-100) fL MCH (25-34) pg MCHC (32-36) g/dL RDW Std Deviation (36.4-46.3) fL RDW Coeff of Ra (11.5-14.5) % Plt Count (130-400) K/uL MPV (7.4-10.4) fL Neutrophils % (Manual) % Lymphocytes % (Manual) % Monocytes % (Manual) % Eosinophils % (Manual) % Basophils % (Manual) % Myelocytes % (Man) % Neutrophils # (Manual) (1.4-6.5) K/uL Total Absolute Neuts (1.4-6.5) K/uL Lymphocytes # (Manual) (1.2-3.4) K/uL Total Abs Lymphocytes (1.2-3.4) K/uL Monocytes # (Manual) (0.11-0.59) K/uL Eosinophils # (Manual) (0-0.5) K/uL Basophils # (Manual) (0-0.2) K/uL Myelocytes # (Manual) (0-0) K/uL Dohle Bodies ABG pH 7.45 (7.35-7.45) ABG pCO2 45 (35-46) mmHg ABG pO2 82 (80-95) mmHg ABG HCO3 30 H (19-24) mmol/L ABG O2 Saturation 96.4 H (90-95) % ABG Base Excess 5.5 H (-9-1.8) mEq/L Anoop Test Pos (Pos) Barometric Pressure 727.9 mm/Hg Oxygen Given 7 L Sodium 138 (136-145) mmol/L Potassium 4.3 (3.5-5.1) mmol/L Chloride 101 (98-107) mmol/L Carbon Dioxide 29 (21-32) mmol/L Anion Gap 8.0 (3-11) BUN 22 H (7-18) mg/dl Creatinine 1.31 (0.6-1.4) mg/dl Est Cr Clr Drug Dosing 50.2 ml/min Est GFR ( Amer) 59.2 Est GFR (Non-Af Amer) 51.1 BUN/Creatinine Ratio 17.0 (10-20) Glucose 331 H* (70-99) mg/dl POC Glucose (70-99) mg/dl Calcium 9.5 (8.5-10.1) mg/dl Magnesium 1.7 L (1.8-2.4) mg/dl Total Bilirubin 1.0 (0.2-1) mg/dl AST 30 (15-37) U/L ALT 19 (12-78) U/L Alkaline Phosphatase 60 (45-117) U/L Troponin I 0.019 (0-0.045) ng/ml NT-Pro-B Natriuret Pep 245 (0-1800) pg/ml Total Protein 7.0 (6.4-8.2) gm/dl Albumin 3.0 L (3.4-5.0) gm/dl Globulin 4.0 (2.5-4.0) gm/dl Albumin/Globulin Ratio 0.8 L (0.9-2) Lipase 76 (73-393) U/L Beta-Hydroxybutyric Acd 1.62 (0.2-2.81) mg/dl Urine Color Urine Appearance (Clear) Urine pH (4.5-7.5) Ur Specific [place] (1.000-1.030) Urine Protein (Negative) Urine Glucose (UA) (Negative) Urine Ketones (Negative) Urine Blood (Negative) Urine Nitrite (Negative) Urine Bilirubin (Negative) Urine Urobilinogen (Negative) Ur Leukocyte Esterase (Negative) COVID-19 PCR (Negative) SARS-CoV-2 RNA (RT-PCR) Cancelled 09/06/19 09/06/19 Range/Units 14:35 14:19 WBC 9.49 (4.8-10.8) K/uL RBC 4.16 L (4.7-6.1) M/uL Hgb 13.5 L (14.0-18.0) g/dL Hct 39.1 L (42-52) % MCV 94.0 (80-100) fL MCH 32.5 (25-34) pg MCHC 34.5 (32-36) g/dL RDW Std Deviation 49.0 H (36.4-46.3) fL RDW Coeff of Ra 14.4 (11.5-14.5) % Plt Count 153 (130-400) K/uL MPV 8.9 (7.4-10.4) fL Neutrophils % (Manual) 74.7 % Lymphocytes % (Manual) 14.8 % Monocytes % (Manual) 5.2 % Eosinophils % (Manual) 3.5 % Basophils % (Manual) 0.9 % Myelocytes % (Man) 0.9 % Neutrophils # (Manual) 7.09 H (1.4-6.5) K/uL Total Absolute Neuts 7.09 H (1.4-6.5) K/uL Lymphocytes # (Manual) 1.40 (1.2-3.4) K/uL Total Abs Lymphocytes 1.40 (1.2-3.4) K/uL Monocytes # (Manual) 0.49 (0.11-0.59) K/uL Eosinophils # (Manual) 0.33 (0-0.5) K/uL Basophils # (Manual) 0.09 (0-0.2) K/uL Myelocytes # (Manual) 0.09 H (0-0) K/uL Dohle Bodies 1+ ABG pH (7.35-7.45) ABG pCO2 (35-46) mmHg ABG pO2 (80-95) mmHg ABG HCO3 (19-24) mmol/L ABG O2 Saturation (90-95) % ABG Base Excess (-9-1.8) mEq/L Anoop Test (Pos) Barometric Pressure mm/Hg Oxygen Given Sodium (136-145) mmol/L Potassium (3.5-5.1) mmol/L Chloride (98-107) mmol/L Carbon Dioxide (21-32) mmol/L Anion Gap (3-11) BUN (7-18) mg/dl Creatinine (0.6-1.4) mg/dl Est Cr Clr Drug Dosing ml/min Est GFR ( Amer) Est GFR (Non-Af Amer) BUN/Creatinine Ratio (10-20) Glucose (70-99) mg/dl POC Glucose (70-99) mg/dl Calcium (8.5-10.1) mg/dl Magnesium (1.8-2.4) mg/dl Total Bilirubin (0.2-1) mg/dl AST (15-37) U/L ALT (12-78) U/L Alkaline Phosphatase (45-117) U/L Troponin I (0-0.045) ng/ml NT-Pro-B Natriuret Pep (0-1800) pg/ml Total Protein (6.4-8.2) gm/dl Albumin (3.4-5.0) gm/dl Globulin (2.5-4.0) gm/dl Albumin/Globulin Ratio (0.9-2) Lipase (73-393) U/L Beta-Hydroxybutyric Acd (0.2-2.81) mg/dl Urine Color Yellow Urine Appearance Clear (Clear) Urine pH 5.0 (4.5-7.5) Ur Specific [place] 1.015 (1.000-1.030) Urine Protein Negative (Negative) Urine Glucose (UA) 2+ H (Negative) Urine Ketones Negative (Negative) Urine Blood Negative (Negative) Urine Nitrite Negative (Negative) Urine Bilirubin Negative (Negative) Urine Urobilinogen Negative (Negative) Ur Leukocyte Esterase Negative (Negative) COVID-19 PCR (Negative) SARS-CoV-2 RNA (RT-PCR) Diagnostic Findings CT angiogram of the chest personally reviewed by me and agree with the following report: IMPRESSION: 1. No evidence of acute pulmonary embolism 2. Mild mediastinal and hilar lymphadenopathy 3. Suspected underlying interstitial lung disease with subpleural reticulation, bronchiectasis, and groundglass opacities with a mosaic distribution. 3. 4 cm focal area of nodular consolidation within the right middle lobe. An infectious/inflammatory process is favored over neoplasm. A 1 to 2 month follow- up CT scan is recommended. Chest x-ray image personally reviewed by me and agree with the following report: XR chest 1V portable HISTORY: 79 years-old Male sob acute shortness of breath COMPARISON: None TECHNIQUE: Portable erect AP view of the chest FINDINGS: Cardiac silhouette is enlarged. Pulmonary vascular congestion. Mild diffuse interstitial coarsening. No pneumothorax, large pleural effusion or airspace consolidation typical for pneumonia. Mild bibasilar densities suggest probable atelectasis. IMPRESSION: 1. Cardiomegaly with pulmonary vascular congestion. 2. Diffuse interstitial coarsening. Findings may be on a chronic basis, represen t pulmonary edema or atypical pneumonitis. ECG Additional Comments: ECG on 09/06/2019 at 1427 with sinus tachycardia with mary ture atrial complexes, left axis deviation, RBBB, possible lateral infarct, inferior infarct Code Status & VTE Plan Code Status Full code VTE Prophylaxis Plan VTE Prophylaxis will be ordered: Yes PG Care Time/CCT Total # of Minutes Spent Total Time Spent with Patient: Total time spent is greater than 50% in coordination of care (as documented) at patient's floor/unit and/or counseling patient: Coding Level of Care Code 28277 Initial Inpt Care Lvl 3 Diagnoses Hypoxia R09.02 Pneumonia J18.9 Laterality: right Lung location: middle lobe of lung Pneumonia type: due to unspecified organism Paroxysmal ventricular tachycardia I47.2 CAD (coronary artery disease) I25.10 Cardiomyopathy I42.9 BPH (benign prostatic hyperplasia) N40.0 CLL (chronic lymphocytic leukemia) C91.90 GERD without esophagitis K21.9 Hyperlipidemia E78.5 HTN (hypertension) I10 Type 2 diabetes mellitus E11.9 Hemolytic anemia D58.9 Stroke I63.9 COPD (chronic obstructive pulmonary disease) J44.9 DVT prophylaxis Z29.9 (1) Pneumonia Laterality: right Lung location: middle lobe of lung Pneumonia type: due to unspecified organism Qualified Code(s): J18.9 - Pneumonia, unspecified organism
[2019-09-06] MEDS ORDERED: AZITHROMYCIN 500 MG in DEXTROSE 5% 250 ML IV ONE (20:11)
[2019-09-06] MEDS ORDERED: MAGNESIUM SULFATE / D5W 1 GM/100 ML BAG IV ONE (20:11)
[2019-09-06] MEDS ORDERED: GLUCAGON FOR INJ 1 MG VIAL SQ PRN (22:04)
[2019-09-06] MEDS ORDERED: ALPRAZolam 0.25 MG TABLET PO PRN (22:04)
[2019-09-06] MEDS ORDERED: CARBOHYDRATES FOR HYPOGLYCEMIA PO PRN (22:04)
[2019-09-06] MEDS ORDERED: DEXTROSE 50% 50 ML SYRINGE IV PRN (22:04)
[2019-09-06] MEDS ORDERED: GLUCOSE 40% GEL 15 GM TUBE PO PRN (22:04)
[2019-09-06] MEDS ORDERED: GLUCOSE 10 TABS/TUBE PO PRN (22:04)
[2019-09-06] MEDS ORDERED: ACETAMINOPHEN 325 MG TAB PO PRN (22:04)
[2019-09-06] MEDS: ATORVASTATIN 40 MG TAB PO SCH (22:43)
[2019-09-06] MEDS: carvediloL 3.125 MG TAB PO SCH (22:44)
[2019-09-06] MEDS: ENOXAPARIN INJ 40 MG/0.4 ML SYR SQ SCH (22:44)
[2019-09-06] MEDS: INSULIN ASPART 100 UNITS/ML 3 ML PEN SC SCH (22:51)
[2019-09-07] MEDS ORDERED: ALBUT/IPRATROP 3MG/0.5MG NEB 3 ML VIAL NEB STA (00:21)
[2019-09-07] MEDS ORDERED: INSULIN GLARGINE SOLOSTAR 100 UNITS/ML 3 ML PEN SC SCH ×2 (01:20→21:00)
[2019-09-07 06:44] LABS: Hematocrit (blood only) 38.2 % (42-52); Hemoglobin 12.8 g/dL (14.0-18.0); Mean Corpuscular Hemoglobin 31.8 pg (25-34); Mean Corpuscular Hgb Conc 33.5 g/dL (32-36); Mean Corpuscular Volume 94.8 fL (80-100); Mean Platelet Volume 8.5 fL (7.4-10.4); Platelet Count 142 K/uL (130-400); RDW Coefficient of Variation 14.5 % (11.5-14.5); RDW Standard Deviation 49.6 fL (36.4-46.3); Red Blood Count 4.03 M/uL (4.7-6.1); White Blood Count 7.81 K/uL (4.8-10.8)
[2019-09-07] MEDS: ALBUT/IPRATROP 3MG/0.5MG NEB 3 ML VIAL NEB SCH ×4 (06:54→19:13)
[2019-09-07 07:16] LABS: BUN Creatinine Ratio 19.3 (10-20); Calcium 9.2 mg/dl (8.5-10.1); Creatinine Clr Calc Pharmacy 63.4 ml/min; Est GFR (African American) 86.2; Est GFR (Non-African American) 74.4; Potassium 4.1 mmol/L (3.5-5.1)
[2019-09-07 07:28] LABS: Troponin I 0.03 ng/ml (0-0.045)
[2019-09-07 07:33] LABS: ALC (manual) 2.01 K/uL (1.2-3.4); ANC (manual) 4.08 K/uL (1.4-6.5); Basophils # (manual) 0.27 K/uL (0-0.2); Basophils % (manual) 3.5 %; Eosinophils # (manual) 0.41 K/uL (0-0.5); Eosinophils % (manual) 5.3 %; Lymphocytes # (manual) 2.01 K/uL (1.2-3.4); Lymphocytes % (manual) 25.7 %; Monocytes # (manual) 1.04 K/uL (0.11-0.59); Monocytes % (manual) 13.3 %; Neutrophils # (manual) 4.08 K/uL (1.4-6.5); Neutrophils % (manual) 52.2 %; RBC Morphology Unremarkable
[2019-09-07 08:01] LABS: Estimated Average Glucose 197 mg/dl; Hemoglobin A1C 8.5 % (4.5-5.6)
[2019-09-07] MEDS: INSULIN ASPART 100 UNITS/ML 3 ML PEN SC SCH ×4 (08:15→20:33)
[2019-09-07] MEDS: MAGNESIUM OXIDE 400 MG TAB PO SCH (08:16)
[2019-09-07] MEDS: PANTOprazole 40 MG TAB PO SCH (08:16)
[2019-09-07] MEDS: CLOPIDOGREL BISULFATE 75 MG TAB PO SCH (08:17)
[2019-09-07] MEDS: FOLIC ACID 1 MG TAB PO SCH (08:17)
[2019-09-07] MEDS: ASPIRIN 81 MG ECTAB PO SCH (08:17)
[2019-09-07] MEDS: lisinopriL 10 MG TAB PO SCH (08:17)
[2019-09-07] MEDS: CITALOPRAM 20 MG TAB PO SCH (08:18)
[2019-09-07] MEDS: FUROSEMIDE 20 MG TAB PO SCH (08:18)
[2019-09-07] MEDS: FINASTERIDE 5 MG TAB PO SCH (08:18)
[2019-09-07] MEDS: carvediloL 3.125 MG TAB PO SCH ×2 (08:18→20:30)
[2019-09-07] MEDS: TERAZOSIN HCL 5 MG CAP PO SCH (08:18)
[2019-09-07] MEDS: ASCORBIC ACID 500 MG TAB PO SCH (08:19)
[2019-09-07] MEDS: FENOFIBRATE NANOCRYSTALLIZED 145 MG TABLET PO SCH (08:19)
[2019-09-07] MEDS ORDERED: predniSONE 20 MG TAB PO SCH (09:00)
--- NOTE | 2019-09-07 11:44 | Hospitalist Progress Note ---
Date of Service September 07, 2019 Assessment & Plan (1) Pneumonia: RML. Cont rocephin and zithromax. Follow blood cx's. COVID-19 negative. add tessalon, add mucinex, add incentive maria ines, add flutter valve for pulmonary toilet. (2) Acute and chronic respiratory failure with hypoxia: Chronic hypoxic resp failure 2nd to COPD, on home O2. Acute component 2nd to RML pneumonia and COPD exacerbation. Treating both. (3) COPD exacerbation: hold PO prednisone. add solumedrol 40mg IV BID. scheduled nebs q6h. pulm toilet. supportive care. 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 for such H/H acceptable daily CBC (6) CAD (coronary artery disease): no evidence of ischemia cont asa, coreg, plavix, lasix, MICH he is statin intolerant (7) Chronic systolic CHF (congestive heart failure): EF 45-50% compensated cont BB cont MICH cont lasix (8) CLL (chronic lymphocytic leukemia): noted follows with heme/onc daily CBC concomitant autoimmune hemolytic anemia (9) BPH (benign prostatic hyperplasia): cont finasteride cont terazosin (10) GERD without esophagitis: cont PPI (11) Hyperlipidemia: statin intolerant (12) HTN (hypertension): cont home meds acceptable control (13) History of stroke: cont asa and plavix for secondary prevention (14) DVT prophylaxis: lovenox 40mg daily will need PT/OT left message for contact 09/06 Admission and Anticipated Discharge Date Admission Date: September 06, 2019 Subjective tele - NSR overnight appetite good severe cough - coughed all night mild dyspnea at rest; much worse with simple activity desats when ambulating to commode no chest pain no abdominal pain confirms chronic O2 at home continuously Review of Systems Constitutional: no fever and no chills Respiratory: + cough, + dyspnea, + dyspnea on exertion and + sputum production; no hemoptysis Cardiovascular: no chest pain, no orthopnea and no edema Gastrointestinal: + abdominal pain (with coughing only ); no nausea and no vomiting Physical Exam Constitutional: no acute distress and no altered mental status ENMT: external ear and nose normal, oropharynx normal Respiratory: Auscultation: + diminished lung sounds (exp phase throughout ) and + wheezes (extensive b/l ) Cardiovascular: Rate/Rhythm: regular rate and regular rhythm Heart Sounds: normal S1 and normal S2; no murmur Vessels: posterior tibial pulses present and dorsalis pedis pulses present; no JVD Extremities: no edema Gastrointestinal (Abdomen): normal bowel sounds, soft, nontender, no hepatosplenomegaly Psychiatric: A+Ox3, euthymic affect Results & Data Results & Data ([facility]) Vital Signs (Past 12 Hours) Vital Signs Temp Pulse Pulse Resp BP Pulse Ox 09/07/19 11:35 36.6 C 74 23 110/58 L 97 09/07/19 11:24 73 20 97 09/07/19 07:54 36.6 C 84 22 141/72 H 96 09/07/19 06:56 71 20 97 09/07/19 03:35 36.5 C 74 21 129/77 85 L 09/07/19 00:31 65 18 94 09/07/19 00:00 91 H Laboratory Results Laboratory Results - last 24 hr 09/06/19 09/06/19 09/06/19 14:19 14:35 14:35 WBC 9.49 RBC 4.16 L Hgb 13.5 L Hct 39.1 L MCV 94.0 MCH 32.5 MCHC 34.5 RDW Std Deviation 49.0 H RDW Coeff of Ra 14.4 Plt Count 153 MPV 8.9 Neutrophils % (Manual) 74.7 Lymphocytes % (Manual) 14.8 Monocytes % (Manual) 5.2 Eosinophils % (Manual) 3.5 Basophils % (Manual) 0.9 Myelocytes % (Man) 0.9 Neutrophils # (Manual) 7.09 H Total Absolute Neuts 7.09 H Lymphocytes # (Manual) 1.40 Total Abs Lymphocytes 1.40 Monocytes # (Manual) 0.49 Eosinophils # (Manual) 0.33 Basophils # (Manual) 0.09 Myelocytes # (Manual) 0.09 H Dohle Bodies 1+ RBC Morphology ABG pH ABG pCO2 ABG pO2 ABG HCO3 ABG O2 Saturation ABG Base Excess Anoop Test Barometric Pressure Oxygen Given Sodium 138 Potassium 4.3 Chloride 101 Carbon Dioxide 29 Anion Gap 8.0 BUN 22 H Creatinine 1.31 Est Cr Clr Drug Dosing 50.2 Est GFR ( Amer) 59.2 Est GFR (Non-Af Amer) 51.1 BUN/Creatinine Ratio 17.0 Glucose 331 H* POC Glucose Estimat Average Glucose Hemoglobin A1c Calcium 9.5 Magnesium 1.7 L Total Bilirubin 1.0 AST 30 ALT 19 Alkaline Phosphatase 60 Troponin I 0.019 NT-Pro-B Natriuret Pep 245 Total Protein 7.0 Albumin 3.0 L Globulin 4.0 Albumin/Globulin Ratio 0.8 L Lipase 76 Beta-Hydroxybutyric Acd 1.62 Urine Color Yellow Urine Appearance Clear Urine pH 5.0 Ur Specific [place] 1.015 Urine Protein Negative Urine Glucose (UA) 2+ H Urine Ketones Negative Urine Blood Negative Urine Nitrite Negative Urine Bilirubin Negative Urine Urobilinogen Negative Ur Leukocyte Esterase Negative COVID-19 PCR SARS-CoV-2 RNA (RT-PCR) 09/06/19 09/06/19 09/06/19 15:19 18:33 18:33 WBC RBC Hgb Hct MCV MCH MCHC RDW Std Deviation RDW Coeff of Ra Plt Count MPV Neutrophils % (Manual) Lymphocytes % (Manual) Monocytes % (Manual) Eosinophils % (Manual) Basophils % (Manual) Myelocytes % (Man) Neutrophils # (Manual) Total Absolute Neuts Lymphocytes # (Manual) Total Abs Lymphocytes Monocytes # (Manual) Eosinophils # (Manual) Basophils # (Manual) Myelocytes # (Manual) Dohle Bodies RBC Morphology ABG pH 7.45 ABG pCO2 45 ABG pO2 82 ABG HCO3 30 H ABG O2 Saturation 96.4 H ABG Base Excess 5.5 H Anoop Test Pos Barometric Pressure 727.9 Oxygen Given 7 L Sodium Potassium Chloride Carbon Dioxide Anion Gap BUN Creatinine Est Cr Clr Drug Dosing Est GFR ( Amer) Est GFR (Non-Af Amer) BUN/Creatinine Ratio Glucose POC Glucose Estimat Average Glucose Hemoglobin A1c Calcium Magnesium Total Bilirubin AST ALT Alkaline Phosphatase Troponin I NT-Pro-B Natriuret Pep Total Protein Albumin Globulin Albumin/Globulin Ratio Lipase Beta-Hydroxybutyric Acd Urine Color Urine Appearance Urine pH Ur Specific [place] Urine Protein Urine Glucose (UA) Urine Ketones Urine Blood Urine Nitrite Urine Bilirubin Urine Urobilinogen Ur Leukocyte Esterase COVID-19 PCR NEGATIVE SARS-CoV-2 RNA (RT-PCR) Cancelled 09/06/19 09/06/19 09/07/19 21:07 22:49 06:28 WBC 7.81 RBC 4.03 L Hgb 12.8 L Hct 38.2 L MCV 94.8 MCH 31.8 MCHC 33.5 RDW Std Deviation 49.6 H RDW Coeff of Ra 14.5 Plt Count 142 MPV 8.5 Neutrophils % (Manual) 52.2 Lymphocytes % (Manual) 25.7 Monocytes % (Manual) 13.3 Eosinophils % (Manual) 5.3 Basophils % (Manual) 3.5 Myelocytes % (Man) Neutrophils # (Manual) 4.08 Total Absolute Neuts 4.08 Lymphocytes # (Manual) 2.01 Total Abs Lymphocytes 2.01 Monocytes # (Manual) 1.04 H Eosinophils # (Manual) 0.41 Basophils # (Manual) 0.27 H Myelocytes # (Manual) Dohle Bodies RBC Morphology Unremarkable ABG pH ABG pCO2 ABG pO2 ABG HCO3 ABG O2 Saturation ABG Base Excess Anoop Test Barometric Pressure Oxygen Given Sodium Potassium Chloride Carbon Dioxide Anion Gap BUN Creatinine Est Cr Clr Drug Dosing Est GFR ( Amer) Est GFR (Non-Af Amer) BUN/Creatinine Ratio Glucose POC Glucose 266 H Estimat Average Glucose Hemoglobin A1c Calcium Magnesium Total Bilirubin AST ALT Alkaline Phosphatase Troponin I 0.018 NT-Pro-B Natriuret Pep Total Protein Albumin Globulin Albumin/Globulin Ratio Lipase Beta-Hydroxybutyric Acd Urine Color Urine Appearance Urine pH Ur Specific [place] Urine Protein Urine Glucose (UA) Urine Ketones Urine Blood Urine Nitrite Urine Bilirubin Urine Urobilinogen Ur Leukocyte Esterase COVID-19 PCR SARS-CoV-2 RNA (RT-PCR) 09/07/19 09/07/19 09/07/19 06:28 06:28 07:28 WBC RBC Hgb Hct MCV MCH MCHC RDW Std Deviation RDW Coeff of Ra Plt Count MPV Neutrophils % (Manual) Lymphocytes % (Manual) Monocytes % (Manual) Eosinophils % (Manual) Basophils % (Manual) Myelocytes % (Man) Neutrophils # (Manual) Total Absolute Neuts Lymphocytes # (Manual) Total Abs Lymphocytes Monocytes # (Manual) Eosinophils # (Manual) Basophils # (Manual) Myelocytes # (Manual) Dohle Bodies RBC Morphology ABG pH ABG pCO2 ABG pO2 ABG HCO3 ABG O2 Saturation ABG Base Excess Anoop Test Barometric Pressure Oxygen Given Sodium 139 Potassium 4.1 Chloride 100 Carbon Dioxide 35 H Anion Gap 4.0 BUN 18 Creatinine 0.96 D Est Cr Clr Drug Dosing 63.4 Est GFR ( Amer) 86.2 Est GFR (Non-Af Amer) 74.4 BUN/Creatinine Ratio 19.3 Glucose 86 POC Glucose 96 Estimat Average Glucose 197 Hemoglobin A1c 8.5 H Calcium 9.2 Magnesium 2.0 Total Bilirubin AST ALT Alkaline Phosphatase Troponin I 0.030 NT-Pro-B Natriuret Pep Total Protein Albumin Globulin Albumin/Globulin Ratio Lipase Beta-Hydroxybutyric Acd Urine Color Urine Appearance Urine pH Ur Specific [place] Urine Protein Urine Glucose (UA) Urine Ketones Urine Blood Urine Nitrite Urine Bilirubin Urine Urobilinogen Ur Leukocyte Esterase COVID-19 PCR SARS-CoV-2 RNA (RT-PCR) 09/07/19 11:16 WBC RBC Hgb Hct MCV MCH MCHC RDW Std Deviation RDW Coeff of Ra Plt Count MPV Neutrophils % (Manual) Lymphocytes % (Manual) Monocytes % (Manual) Eosinophils % (Manual) Basophils % (Manual) Myelocytes % (Man) Neutrophils # (Manual) Total Absolute Neuts Lymphocytes # (Manual) Total Abs Lymphocytes Monocytes # (Manual) Eosinophils # (Manual) Basophils # (Manual) Myelocytes # (Manual) Dohle Bodies RBC Morphology ABG pH ABG pCO2 ABG pO2 ABG HCO3 ABG O2 Saturation ABG Base Excess Anoop Test Barometric Pressure Oxygen Given Sodium Potassium Chloride Carbon Dioxide Anion Gap BUN Creatinine Est Cr Clr Drug Dosing Est GFR ( Amer) Est GFR (Non-Af Amer) BUN/Creatinine Ratio Glucose POC Glucose 142 H Estimat Average Glucose Hemoglobin A1c Calcium Magnesium Total Bilirubin AST ALT Alkaline Phosphatase Troponin I NT-Pro-B Natriuret Pep Total Protein Albumin Globulin Albumin/Globulin Ratio Lipase Beta-Hydroxybutyric Acd Urine Color Urine Appearance Urine pH Ur Specific [place] Urine Protein Urine Glucose (UA) Urine Ketones Urine Blood Urine Nitrite Urine Bilirubin Urine Urobilinogen Ur Leukocyte Esterase COVID-19 PCR SARS-CoV-2 RNA (RT-PCR) PG Care Time/CCT Total # of Minutes Spent Total Time Spent with Patient: Total time spent is greater than 50% in coordi [place] of care (as documented) at patient's floor/unit and/or counseling patient: Coding Level of Care Code 84191 Subseq Hosp Care Lvl 3 Diagnoses Pneumonia J18.9 Laterality: right Lung location: middle lobe of lung Pneumonia type: due to unspecified organism Acute and chronic respiratory failure with hypoxia J96.21 COPD exacerbation J44.1 Diabetes mellitus type 2, uncontrolled E11.65 Hemolytic anemia D59.1 Hemolytic anemia type: acquired, autoimmune, other CAD (coronary artery disease) I25.10 Coronary Disease-Associated Artery/Lesion type: [place] artery [place] vs. transplanted heart: [place] heart Associated angina: without angina Chronic systolic CHF (congestive heart failure) I50.22 CLL (chronic lymphocytic leukemia) C91.90 BPH (benign prostatic hyperplasia) N40.0 GERD without esophagitis K21.9 Hyperlipidemia E78.5 HTN (hypertension) I10 History of stroke Z86.73 DVT prophylaxis Z29.9 (1) Pneumonia Laterality: right Lung location: middle lobe of lung Pneumonia type: due to unspecified organism Qualified Code(s): J18.9 - Pneumonia, unspecified organism (2) Hemolytic anemia Hemolytic anemia type: acquired, autoimmune, other Qualified Code(s): D59.1 - Other autoimmune hemolytic anemias (3) CAD (coronary artery disease) Coronary Disease-Associated Artery/Lesion type: [place] artery [place] vs. transplanted heart: [place] heart Associated angina: without angina Qualified Code(s): I25.10 - Atherosclerotic heart disease of [place] coronary artery without angina pectoris
[2019-09-07] MEDS: methylPREDNISolone 40 MG in SYRINGE 0 ML IV SCH ×2 (12:49→23:41)
[2019-09-07] MEDS: guaiFENesin 600 MG TABCR PO SCH ×2 (14:56→20:31)
[2019-09-07] MEDS: BENZONATATE 100 MG CAPSULE PO SCH ×2 (14:56→20:32)
[2019-09-07] MEDS: cefTRIAXone SODIUM 2,000 MG in DEXTROSE 5% 50 ML IV SCH (17:19)
[2019-09-07] MEDS: ATORVASTATIN 40 MG TAB PO SCH (20:32)
[2019-09-07] MEDS: AZITHROMYCIN 250 MG in DEXTROSE 5% 250 ML IV SCH (21:37)
[2019-09-07] MEDS: ENOXAPARIN INJ 40 MG/0.4 ML SYR SQ SCH (21:41)
[2019-09-08 06:40] LABS: Hemoglobin 12.5 g/dL (14.0-18.0); Mean Corpuscular Hgb Conc 32.9 g/dL (32-36); Mean Corpuscular Volume 94.3 fL (80-100); Platelet Count 150 K/uL (130-400); RDW Coefficient of Variation 14.3 % (11.5-14.5); Red Blood Count 4.03 M/uL (4.7-6.1); White Blood Count 9.05 K/uL (4.8-10.8)
[2019-09-08] MEDS: ALBUT/IPRATROP 3MG/0.5MG NEB 3 ML VIAL NEB SCH ×4 (07:06→19:23)
[2019-09-08 07:14] LABS: BUN Creatinine Ratio 24.5 (10-20); Calcium 9.3 mg/dl (8.5-10.1); Est GFR (African American) 87.3; Est GFR (Non-African American) 75.3; Potassium 4.3 mmol/L (3.5-5.1)
[2019-09-08] MEDS: guaiFENesin 600 MG TABCR PO SCH ×2 (08:08→21:09)
[2019-09-08] MEDS: ASPIRIN 81 MG ECTAB PO SCH (08:08)
[2019-09-08] MEDS: BENZONATATE 100 MG CAPSULE PO SCH ×3 (08:08→21:09)
[2019-09-08] MEDS: ASCORBIC ACID 500 MG TAB PO SCH (08:09)
[2019-09-08] MEDS: FINASTERIDE 5 MG TAB PO SCH (08:09)
[2019-09-08] MEDS: MAGNESIUM OXIDE 400 MG TAB PO SCH (08:09)
[2019-09-08] MEDS: CITALOPRAM 20 MG TAB PO SCH (08:09)
[2019-09-08] MEDS: CLOPIDOGREL BISULFATE 75 MG TAB PO SCH (08:09)
[2019-09-08] MEDS: FOLIC ACID 1 MG TAB PO SCH (08:09)
[2019-09-08] MEDS: TERAZOSIN HCL 5 MG CAP PO SCH (08:09)
[2019-09-08] MEDS: FENOFIBRATE NANOCRYSTALLIZED 145 MG TABLET PO SCH (08:12)
[2019-09-08] MEDS: lisinopriL 10 MG TAB PO SCH (08:12)
[2019-09-08] MEDS: PANTOprazole 40 MG TAB PO SCH (08:13)
[2019-09-08] MEDS: INSULIN ASPART 100 UNITS/ML 3 ML PEN SC SCH ×4 (08:13→21:11)
[2019-09-08] MEDS: FUROSEMIDE 20 MG TAB PO SCH (08:13)
[2019-09-08] MEDS: carvediloL 3.125 MG TAB PO SCH ×2 (08:13→21:09)
[2019-09-08] MEDS: INSULIN GLARGINE SOLOSTAR 100 UNITS/ML 3 ML PEN SC SCH ×2 (08:14→21:10)
[2019-09-08 11:19] LABS: Basophils # (auto) 0.03 K/uL (0-0.2); Basophils % (auto) 0.3 %; Eosinophils # (auto) 0.01 K/uL (0-0.5); Eosinophils % (auto) 0.1 %; Immature Granulocytes # (auto) 0.69 K/uL (0.00-0.02); Immature Granulocytes % (auto) 7.6 %; Lymphocytes # (auto) 2.02 K/uL (1.2-3.4); Lymphocytes % (auto) 22.3 %; Monocytes # (auto) 1.17 K/uL (0.11-0.59); Monocytes % (auto) 12.9 %; Neutrophils # (auto) 5.13 K/uL (1.4-6.5); Neutrophils % (auto) 56.8 %
[2019-09-08] MEDS: methylPREDNISolone 40 MG in SYRINGE 0 ML IV SCH ×2 (12:37→23:20)
--- NOTE | 2019-09-08 16:46 | Electrocardiogram Report ---
Test Reason : Blood Pressure : / mmHG Vent. Rate : 104 BPM Atrial Rate : 104 BPM P-R Int : 200 ms QRS Dur : 150 ms QT Int : 412 ms P-R-T Axes : -06 -56 071 degrees QTc Int : 541 ms Sinus tachycardia with Premature atrial complexes Left axis deviation Right bundle branch block Possible Lateral infarct (cited on or before 28-JUN-2016) Inferior infarct (cited on or before 28-JUN-2016) Abnormal ECG When compared with ECG of 28-JUN-2016 17:07, HR has increased Premature ventricular complexes are no longer Present Confirmed by Kendall Chisholm ([id number]) on 09/08/2019 4:46:02 PM Referred By: ER Confirmed By:Kendall Chisholm
[2019-09-08] MEDS: cefTRIAXone SODIUM 2,000 MG in DEXTROSE 5% 50 ML IV SCH (17:00)
[2019-09-08] MEDS: AZITHROMYCIN 250 MG in DEXTROSE 5% 250 ML IV SCH (21:09)
--- NOTE | 2019-09-08 21:09 | Hospitalist Progress Note ---
Date of Service September 08, 2019 Assessment & Plan (1) Pneumonia: RML. clinically improving albeit slowly. Cont rocephin and zithromax. day #3 of 7 day course of antibiotics. Follow blood cx's - thus far negative. COVID-19 negative. cont tessalon, mucinex, incentive maria ines, and flutter valve for pulmonary toilet. (2) Acute and chronic respiratory failure with hypoxia: Chronic hypoxic resp failure 2nd to COPD, on home O2. Acute component 2nd to RML pneumonia and COPD exacerbation. Treating both. (3) COPD exacerbation: improving slowly. cont solumedrol 40mg IV BID - no wean today. scheduled nebs q6h. pulm toilet. supportive care. 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 at home for such H/H acceptable daily CBC prednisone on hold as patient on IV steroids (6) CAD (coronary artery disease): no evidence of ischemia cont asa, coreg, plavix, lasix, MICH he is statin intolerant (7) Chronic systolic CHF (congestive heart failure): EF 45-50% compensated on exam again cont BB cont MICH cont lasix (8) CLL (chronic lymphocytic leukemia): noted follows with heme/onc daily CBC concomitant autoimmune hemolytic anemia (9) BPH (benign prostatic hyperplasia): cont finasteride cont terazosin (10) GERD without esophagitis: cont PPI (11) Hyperlipidemia: statin intolerant (12) HTN (hypertension): cont home meds controlled (13) History of stroke: cont asa and plavix for secondary prevention (14) DVT prophylaxis: lovenox 40mg daily cont PT/OT updated by phone today 09/07 Admission and Anticipated Discharge Date Admission Date: September 06, 2019 Subjective no new issues overnight tele stable cough improved still with significant ROBERTS with simply walking to toilet eating well no chest pain or orthopnea no nausea/emesis Review of Systems Constitutional: no fever and no chills Respiratory: + cough; no hemoptysis Cardiovascular: no dyspnea at rest, no orthopnea, no paroxysmal nocturnal dy spnea and no edema Gastrointestinal: no diarrhea/loose stools Physical Exam Constitutional: no acute distress and no altered mental status ENMT: external ear and nose normal, oropharynx normal Respiratory: no respiratory distress Auscultation: + diminished lung sounds (exp phase throughout ) and + wheezes (extensive b/l - but better air movement today ); no crackles Cardiovascular: Rate/Rhythm: regular rate and regular rhythm Heart Sounds: normal S1 and normal S2; no murmur Vessels: posterior tibial pulses present and dorsalis pedis pulses present; no JVD Extremities: no edema Gastrointestinal (Abdomen): normal bowel sounds, soft, nontender, no hepatosplenomegaly Psychiatric: A+Ox3, euthymic affect Results & Data Results & Data ([facility]) Vital Signs (Past 12 Hours) Vital Signs Temp Pulse Pulse Resp BP Pulse Ox 09/08/19 20:17 36.8 C 89 20 101/48 L 95 09/08/19 19:23 89 20 94 09/08/19 15:49 36.5 C 87 24 112/62 93 09/08/19 14:26 74 19 93 09/08/19 11:31 36.6 C 79 20 102/57 L 94 09/08/19 11:13 73 18 96 Laboratory Results Laboratory Results - last 24 hr 09/08/19 09/08/19 09/08/19 05:43 05:43 07:30 WBC 9.05 RBC 4.03 L Hgb 12.5 L Hct 38.0 L MCV 94.3 MCH 31.0 MCHC 32.9 RDW Std Deviation 49.0 H RDW Coeff of Ra 14.3 Plt Count 150 MPV 9.0 Immature Gran % (Auto) 7.6 Neut % (Auto) 56.8 Lymph % (Auto) 22.3 [place] % (Auto) 12.9 Eos % (Auto) 0.1 Baso % (Auto) 0.3 Neut # (Auto) 5.13 Lymph # (Auto) 2.02 [place] # (Auto) 1.17 H Eos # (Auto) 0.01 Baso # (Auto) 0.03 Immature Gran # (Auto) 0.69 H Blood Smear Review Sodium 136 Potassium 4.3 Chloride 97 L Carbon Dioxide 34 H Anion Gap 5.0 BUN 23 H Creatinine 0.95 Est Cr Clr Drug Dosing 64.0 Est GFR ( Amer) 87.3 Est GFR (Non-Af Amer) 75.3 BUN/Creatinine Ratio 24.5 H Glucose 200 H POC Glucose 223 H Calcium 9.3 07/29/20 07/29/20 07/29/20 11:30 16:46 20:22 WBC RBC Hgb Hct MCV MCH MCHC RDW Std Deviation RDW Coeff of Ra Plt Count MPV Immature Gran % (Auto) Neut % (Auto) Lymph % (Auto) [place] % (Auto) Eos % (Auto) Baso % (Auto) Neut # (Auto) Lymph # (Auto) [place] # (Auto) Eos # (Auto) Baso # (Auto) Immature Gran # (Auto) Blood Smear Review Sodium Potassium Chloride Carbon Dioxide Anion Gap BUN Creatinine Est Cr Clr Drug Dosing Est GFR ( Amer) Est GFR (Non-Af Amer) BUN/Creatinine Ratio Glucose POC Glucose 135 H 221 H 215 H Calcium PG Care Time/CCT Total # of Minutes Spent Total Time Spent with Patient: Total time spent is greater than 50% in coordination of care (as documented) at patient's floor/unit and/or counseling patient: Coding Level of Care Code 72430 Subseq Hosp Care Lvl 3 Diagnoses Pneumonia J18.9 Laterality: right Lung location: middle lobe of lung Pneumonia type: due to unspecified organism Acute and chronic respiratory failure with hypoxia J96.21 COPD exacerbation J44.1 Diabetes mellitus type 2, uncontrolled E11.65 Hemolytic anemia D59.1 Hemolytic anemia type: acquired, autoimmune, other CAD (coronary artery disease) I25.10 Associated angina: without angina Coronary Disease-Associated Artery/Lesion type: [place] artery [place] vs. transplanted heart: [place] heart Chronic systolic CHF (congestive heart failure) I50.22 CLL (chronic lymphocytic leukemia) C91.90 BPH (benign prostatic hyperplasia) N40.0 GERD without esophagitis K21.9 Hyperlipidemia E78.5 HTN (hypertension) I10 History of stroke Z86.73 DVT prophylaxis Z29.9 (1) Hemolytic anemia Hemolytic anemia type: acquired, autoimmune, other Qualified Code(s): D59.1 - Other autoimmune hemolytic anemias (2) CAD (coronary artery disease) Associated angina: without angina Coronary Disease-Associated Artery/Lesion type: [place] artery [place] vs. transplanted heart: [place] heart Qualified Code(s): I25.10 - Atherosclerotic heart disease of [place] coronary artery without angina pectoris (3) Pneumonia Laterality: right Lung location: middle lobe of lung Pneumonia type: due to unspecified organism Qualified Code(s): J18.9 - Pneumonia, unspecified organism
[2019-09-08] MEDS: ATORVASTATIN 40 MG TAB PO SCH (21:10)
[2019-09-08] MEDS: ENOXAPARIN INJ 40 MG/0.4 ML SYR SQ SCH (21:10)
[2019-09-09] MEDS ORDERED: COUGH DROP (SUGAR FREE) LOZ 24 LOZ/1 BOX BUCCAL PRN (04:10)
[2019-09-09] MEDS: ALBUT/IPRATROP 3MG/0.5MG NEB 3 ML VIAL NEB SCH ×4 (07:03→19:27)
[2019-09-09] MEDS: carvediloL 3.125 MG TAB PO SCH ×2 (07:36→20:49)
[2019-09-09] MEDS: TERAZOSIN HCL 5 MG CAP PO SCH (07:37)
[2019-09-09] MEDS: CLOPIDOGREL BISULFATE 75 MG TAB PO SCH (07:37)
[2019-09-09] MEDS: ASPIRIN 81 MG ECTAB PO SCH (07:37)
[2019-09-09] MEDS: lisinopriL 10 MG TAB PO SCH (07:37)
[2019-09-09] MEDS: ASCORBIC ACID 500 MG TAB PO SCH (07:37)
[2019-09-09] MEDS: FENOFIBRATE NANOCRYSTALLIZED 145 MG TABLET PO SCH (07:37)
[2019-09-09] MEDS: guaiFENesin 600 MG TABCR PO SCH ×2 (07:37→20:50)
[2019-09-09] MEDS: PANTOprazole 40 MG TAB PO SCH (07:38)
[2019-09-09] MEDS: BENZONATATE 100 MG CAPSULE PO SCH ×3 (07:38→20:50)
[2019-09-09] MEDS: FINASTERIDE 5 MG TAB PO SCH (07:38)
[2019-09-09] MEDS: MAGNESIUM OXIDE 400 MG TAB PO SCH (07:38)
[2019-09-09] MEDS: FUROSEMIDE 20 MG TAB PO SCH (07:38)
[2019-09-09] MEDS: FOLIC ACID 1 MG TAB PO SCH (07:38)
[2019-09-09] MEDS: CITALOPRAM 20 MG TAB PO SCH (07:38)
[2019-09-09] MEDS: INSULIN ASPART 100 UNITS/ML 3 ML PEN SC SCH ×4 (07:40→20:54)
[2019-09-09 09:02] LABS: BUN Creatinine Ratio 28.2 (10-20); Creatinine Clr Calc Pharmacy 57.4 ml/min; Est GFR (African American) 76.4; Potassium 4.4 mmol/L (3.5-5.1)
[2019-09-09] MEDS: INSULIN GLARGINE SOLOSTAR 100 UNITS/ML 3 ML PEN SC SCH ×2 (09:48→20:52)
[2019-09-09] MEDS: methylPREDNISolone 40 MG in SYRINGE 0 ML IV SCH ×2 (12:02→20:48)
--- NOTE | 2019-09-09 13:22 | Hospitalist Progress Note ---
Date of Service September 09, 2019 Assessment & Plan (1) Pneumonia: RML. CXR today now with b/l infiltrates. Cont rocephin and zithromax. day #4 of 7 day course of antibiotics. Change zithromax from iV to PO. Follow blood cx's - thus far negative. COVID-19 negative. cont tessalon, mucinex, incentive maria ines, and flutter valve for pulmonary toilet. lasix 20mg IV x 1 to maintain slightly negative fluid balance. (2) Acute and chronic respiratory failure with hypoxia: Chronic hypoxic resp failure 2nd to COPD, on home O2. Acute component 2nd to RML pneumonia and COPD exacerbation. Treating both. (3) COPD exacerbation: sounds worse today. cont solumedrol but increase to TID dosing. cont scheduled nebs q6h. pulm toilet. supportive care. 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 cont BB cont MICH cont lasix but give IV today and follow response (8) CLL (chronic lymphocytic leukemia): noted follows with heme/onc daily CBC concomitant autoimmune hemolytic anemia (9) BPH (benign prostatic hyperplasia): cont finasteride cont terazosin (10) GERD without esophagitis: cont PPI (11) Hyperlipidemia: statin intolerant (12) HTN (hypertension): cont home meds controlled (13) History of stroke: cont asa and plavix for secondary prevention (14) DVT prophylaxis: lovenox 40mg daily cont PT/OT updated by phone 09/07 Admission and Anticipated Discharge Date Admission Date: September 06, 2019 Subjective continues to feel better, but still very dyspneic with minimal walking (to toilet, etc). desats quickly after activity. O2 at rest - down to 5 liters. continues with cough - mainly dry. denies new complaints. eating well. stable tele overnight. Review of Systems Constitutional: no fever and no chills Respiratory: + wheezing; no hemoptysis Cardiovascular: no chest pain Gastrointestinal: no nausea and no vomiting Physical Exam Constitutional: no acute distress and no altered mental status ENMT: external ear and nose normal, oropharynx normal Respiratory: no respiratory distress Auscultation: + crackles ([place]) and + wheezes (extensive b/l - but better air movement today ) Cardiovascular: Rate/Rhythm: regular rate and regular rhythm Heart Sounds: normal S1 and normal S2; no murmur Vessels: posterior tibial pulses present and dorsalis pedis pulses present; no JVD Extremities: no edema Gastrointestinal (Abdomen): normal bowel sounds, soft, nontender, no hepatosplenomegaly Psychiatric: A+Ox3, euthymic affect Results & Data Results & Data ([facility]) Vital Signs (Past 12 Hours) Vital Signs Temp Pulse Pulse Pulse Resp BP Pulse Ox 09/09/19 11:26 80 17 95 09/09/19 08:00 77 09/09/19 07:20 36.7 C 81 20 117/59 L 91 09/09/19 07:03 75 17 97 09/09/19 03:46 36.6 C 71 16 111/58 L 95 Laboratory Results Laboratory Results - last 24 hr 09/08/19 09/08/19 09/09/19 16:46 20:22 07:17 Sodium Potassium Chloride Carbon Dioxide Anion Gap BUN Creatinine Est Cr Clr Drug Dosing Est GFR ( Amer) Est GFR (Non-Af Amer) BUN/Creatinine Ratio Glucose POC Glucose 221 H 215 H 200 H Calcium 09/09/19 09/09/19 08:01 11:25 Sodium 136 Potassium 4.4 Chloride 96 L Carbon Dioxide 32 Anion Gap 8.0 BUN 30 H Creatinine 1.06 Est Cr Clr Drug Dosing 57.4 Est GFR ( Amer) 76.4 Est GFR (Non-Af Amer) 66.0 BUN/Creatinine Ratio 28.2 H Glucose 221 H POC Glucose 147 H Calcium 10.0 PG Care Time/CCT Total # of Minutes Spent Total Time Spent with Patient: Total time spent is greater than 50% in coordination of care (as documented) at patient's floor/unit and/or counseling patient: Coding Level of Care Code 14611 Subseq Hosp Care Lvl 3 Diagnoses Pneumonia J18.9 Laterality: right Lung location: middle lobe of lung Pneumonia type: due to unspecified organism Acute and chronic respiratory failure with hypoxia J96.21 COPD exacerbation J44.1 Diabetes mellitus type 2, uncontrolled E11.65 Hemolytic anemia D59.1 Hemolytic anemia type: acquired, autoimmune, other CAD (coronary artery disease) I25.10 Associated angina: without angina Coronary Disease-Associated Artery/Lesion type: [place] artery [place] vs. transplanted heart: [place] heart Chronic systolic CHF (congestive heart failure) I50.22 CLL (chronic lymphocytic leukemia) C91.90 BPH (benign prostatic hyperplasia) N40.0 GERD without esophagitis K21.9 Hyperlipidemia E78.5 HTN (hypertension) I10 History of stroke Z86.73 DVT prophylaxis Z29.9 (1) Hemolytic anemia Hemolytic anemia type: acquired, autoimmune, other Qualified Code(s): D59.1 - Other autoimmune hemolytic anemias (2) CAD (coronary artery disease) Associated angina: without angina Coronary Disease-Associated Artery/Lesion type: [place] artery [place] vs. transplanted heart: [place] heart Qualified Code(s): I25.10 - Atherosclerotic heart disease of [place] coronary artery without angina pectoris (3) Pneumonia Laterality: right Lung location: middle lobe of lung Pneumonia type: due to unspecified organism Qualified Code(s): J18.9 - Pneumonia, unspecified organism
--- NOTE | 2019-09-09 14:29 | XRay Report ---
XR chest 2V PA/lateral CLINICAL HISTORY: pneumonia, interval change dyspnea COMPARISON STUDY: 09/06/2019 FINDINGS: Moderate stable cardiomegaly. Prominent pulmonary vasculature also unchanged. Interstitial changes throughout both lung bases as well as left midlung stable to minimally increased in prominence. There are no consolidative infiltrates. IMPRESSION: Stable to slightly progressive bibasilar interstitial infiltrative change. Moderate stab le cardiomegaly. ACT 112: Negative or not required by law. The above report was generated using voice recognition software. It may contain grammatical, syntax or spelling errors. Electronically signed by: Wiley Roberts M.D. 09/09/2019 2:27 PM
[2019-09-09] MEDS: cefTRIAXone SODIUM 2,000 MG in DEXTROSE 5% 50 ML IV SCH (16:50)
[2019-09-09] MEDS ORDERED: FUROSEMIDE 20 MG in SYRINGE 0 ML IV ONE (18:15)
[2019-09-09] MEDS: ATORVASTATIN 40 MG TAB PO SCH (20:51)
[2019-09-09] MEDS: ENOXAPARIN INJ 40 MG/0.4 ML SYR SQ SCH (20:51)
[2019-09-09] MEDS: AZITHROMYCIN 250 MG TAB PO SCH (20:52)
[2019-09-10] MEDS: methylPREDNISolone 40 MG in SYRINGE 0 ML IV SCH ×3 (03:45→20:14)
[2019-09-10 06:34] LABS: Calcium 10.4 mg/dl (8.5-10.1); Creatinine Clr Calc Pharmacy 57.4 ml/min; Est GFR (African American) 76.4; Phosphorus 4.8 mg/dl (2.5-4.9)
[2019-09-10] MEDS: ALBUT/IPRATROP 3MG/0.5MG NEB 3 ML VIAL NEB SCH ×4 (06:53→19:25)
[2019-09-10] MEDS: CITALOPRAM 20 MG TAB PO SCH (08:07)
[2019-09-10] MEDS: CLOPIDOGREL BISULFATE 75 MG TAB PO SCH (08:07)
[2019-09-10] MEDS: MAGNESIUM OXIDE 400 MG TAB PO SCH (08:07)
[2019-09-10] MEDS: FUROSEMIDE 20 MG TAB PO SCH (08:07)
[2019-09-10] MEDS: FENOFIBRATE NANOCRYSTALLIZED 145 MG TABLET PO SCH (08:07)
[2019-09-10] MEDS: TERAZOSIN HCL 5 MG CAP PO SCH (08:08)
[2019-09-10] MEDS: BENZONATATE 100 MG CAPSULE PO SCH ×3 (08:08→20:14)
[2019-09-10] MEDS: FOLIC ACID 1 MG TAB PO SCH (08:08)
[2019-09-10] MEDS: FINASTERIDE 5 MG TAB PO SCH (08:08)
[2019-09-10] MEDS: guaiFENesin 600 MG TABCR PO SCH ×2 (08:08→20:14)
[2019-09-10] MEDS: PANTOprazole 40 MG TAB PO SCH (08:08)
[2019-09-10] MEDS: carvediloL 3.125 MG TAB PO SCH ×2 (08:08→20:14)
[2019-09-10] MEDS: ASPIRIN 81 MG ECTAB PO SCH (08:08)
[2019-09-10] MEDS: ASCORBIC ACID 500 MG TAB PO SCH (08:08)
[2019-09-10] MEDS: INSULIN ASPART 100 UNITS/ML 3 ML PEN SC SCH ×4 (08:10→21:19)
[2019-09-10] MEDS: INSULIN GLARGINE SOLOSTAR 100 UNITS/ML 3 ML PEN SC SCH ×2 (08:11→21:19)
[2019-09-10] MEDS: cefTRIAXone SODIUM 2,000 MG in DEXTROSE 5% 50 ML IV SCH (17:05)
[2019-09-10] MEDS: ATORVASTATIN 40 MG TAB PO SCH (20:14)
[2019-09-10] MEDS: AZITHROMYCIN 250 MG TAB PO SCH (20:14)
[2019-09-10] MEDS: ENOXAPARIN INJ 40 MG/0.4 ML SYR SQ SCH (21:20)
--- NOTE | 2019-09-10 21:40 | Hospitalist Progress Note ---
Date of Service September 10, 2019 Assessment & Plan (1) Pneumonia: RML. CXR 09/08 with b/l infiltrates -- uncertain if b/l infiltrates are from infection vs ILD. Cont rocephin and zithromax. day #5 of 7 day course of antibiotics. Blood cx's negative. COVID-19 negative. cont tessalon, mucinex, incentive maria ines, and flutter valve for pulmonary toilet. Sputum gram stain with moderate GNR but culture thus far negative. Follow. Consider changing rocephin to levaquin tomorrow. (2) Acute and chronic respiratory failure with hypoxia: Chronic hypoxic resp failure 2nd to COPD, on home O2. Acute component 2nd to RML pneumonia and COPD exacerbation. Treating both. (3) COPD exacerbation: modestly improved wheezing today. cont solumedrol TID dosing - no wean today. cont scheduled nebs q6h. pulm toilet. supportive care. 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 for such H/H acceptable prednisone on hold as patient on IV steroids (6) CAD (coronary artery disease): no evidence of ischemia cont asa, coreg, plavix, lasix, MICH he is statin intolerant (7) Chronic systolic CHF (congestive heart failure): EF 45-50% gave IV lasix yesterday - no change clinically thus, CHF is compensated cont BB cont MICH cont lasix (8) CLL (chronic lymphocytic leukemia): noted follows with heme/onc daily CBC concomitant autoimmune hemolytic anemia (9) BPH (benign prostatic hyperplasia): cont finasteride cont terazosin (10) GERD without esophagitis: cont PPI (11) Hyperlipidemia: statin intolerant (12) HTN (hypertension): cont home meds controlled (13) History of stroke: cont asa and plavix for secondary prevention (14) DVT prophylaxis: lovenox 40mg daily cont PT/OT updated by phone 09/07, 09/08 Admission and Anticipated Discharge Date Admission Date: September 06, 2019 Subjective patient "feeling good". feels about 50% better. still with considerable ROBERTS. cough overall improved but has "fits" of cough lasting 5-10 minutes. still w/ considerable wheeze. appetite good. no fever. some fatigue. using flutter valve. tele overnight wnl. Review of Systems Constitutional: no fever and no chills Respiratory: no hemoptysis Cardiovascular: no dyspnea at rest, no orthopnea and no paroxysmal nocturnal dyspnea Gastrointestinal: + constipation; no abdominal pain, no nausea and no vomiting Physical Exam Constitutional: no acute distress and no altered mental status ENMT: external ear and nose normal, oropharynx normal Respiratory: no respiratory distress Auscultation: + crackles (Bases) and + wheezes (extensive b/l - but better air movement today ) Cardiovascular: Rate/Rhythm: regular rate and regular rhythm Heart Sounds: normal S1 and normal S2; no murmur Vessels: posterior tibial pulses present and dorsalis pedis pulses present; no JVD Extremities: no edema Gastrointestinal (Abdomen): normal bowel sounds, soft, nontender, no hepatosplenomegaly Psychiatric: A+Ox3, euthymic affect Results & Data Results & Data ([facility]) Vital Signs (Past 12 Hours) Vital Signs Temp Pulse Pulse Pulse Resp BP Pulse Ox 09/10/19 19:51 37.0 C 90 20 123/60 95 09/10/19 19:25 91 H 18 96 09/10/19 16:00 82 09/10/19 15:47 36.6 C 82 20 110/63 97 09/10/19 15:04 83 18 96 09/10/19 12:00 36.9 C 90 18 92/56 L 96 09/10/19 11:10 91 H 18 98 Laboratory Results Laboratory Results - last 24 hr 09/10/19 09/10/19 09/10/19 05:43 07:32 11:27 Sodium 137 Potassium 5.0 Chloride 98 Carbon Dioxide 36 H Anion Gap 3.0 BUN 41 H Creatinine 1.06 Est Cr Clr Drug Dosing 57.4 Est GFR ( Amer) 76.4 Est GFR (Non-Af Amer) 66.0 BUN/Creatinine Ratio 39.0 H Glucose 198 H POC Glucose 219 H 176 H Calcium 10.4 H Phosphorus 4.8 09/10/19 09/10/19 16:39 21:08 Sodium Potassium Chloride Carbon Dioxide Anion Gap BUN Creatinine Est Cr Clr Drug Dosing Est GFR ( Amer) Est GFR (Non-Af Amer) BUN/Creatinine Ratio Glucose POC Glucose 93 195 H Calcium Phosphorus PG Care Time/CCT Total # of Minutes Spent Total Time Spent with Patient: Total time spent is greater than 50% in coordination of care (as documented) at patient's floor/unit and/or counseling patient: Coding Level of Care Code 43827 Subseq Hosp Care Lvl 2 Diagnoses Pneumonia J18.9 Laterality: right Lung location: middle lobe of lung Pneumonia type: due to unspecified organism Acute and chronic respiratory failure with hypoxia J96.21 COPD exacerbation J44.1 Diabetes mellitus type 2, uncontrolled E11.65 Hemolytic anemia D59.1 Hemolytic anemia type: acquired, autoimmune, other CAD (coronary artery disease) I25.10 Coronary Disease-Associated Artery/Lesion type: [place] artery [place] vs. transplanted heart: [place] heart Associated angina: without angina Chronic systolic CHF (congestive heart failure) I50.22 CLL (chronic lymphocytic leukemia) C91.90 BPH (benign prostatic hyperplasia) N40.0 GERD without esophagitis K21.9 Hyperlipidemia E78.5 HTN (hypertension) I10 History of stroke Z86.73 DVT prophylaxis Z29.9 (1) Pneumonia Laterality: right Lung location: middle lobe of lung Pneumonia type: due to unspecified organism Qualified Code(s): J18.9 - Pneumonia, unspecified organism (2) Hemolytic anemia Hemolytic anemia type: acquired, autoimmune, other Qualified Code(s): D59.1 - Other autoimmune hemolytic anemias (3) CAD (coronary artery disease) Coronary Disease-Associated Artery/Lesion type: [place] artery [place] vs. transplanted heart: [place] heart Associated angina: without angina Qualified Code(s): I25.10 - Atherosclerotic heart disease of [place] coronary artery without angina pectoris
[2019-09-11] MEDS: methylPREDNISolone 40 MG in SYRINGE 0 ML IV SCH ×3 (04:22→20:07)
[2019-09-11 06:24] LABS: Hematocrit (blood only) 36.4 % (42-52); Hemoglobin 12.6 g/dL (14.0-18.0); Mean Corpuscular Hemoglobin 32.6 pg (25-34); Mean Corpuscular Hgb Conc 34.6 g/dL (32-36); Mean Corpuscular Volume 94.1 fL (80-100); Nucleated RBC # (auto) 0.02 K/uL (0-0); Nucleated RBC % (auto) 0.2 %; RDW Coefficient of Variation 14.3 % (11.5-14.5); RDW Standard Deviation 48.9 fL (36.4-46.3); Red Blood Count 3.87 M/uL (4.7-6.1); White Blood Count 9.21 K/uL (4.8-10.8)
[2019-09-11 06:51] LABS: BUN Creatinine Ratio 42.8 (10-20); Calcium 10.7 mg/dl (8.5-10.1); Creatinine Clr Calc Pharmacy 71.6 ml/min; Est GFR (African American) 95.4; Est GFR (Non-African American) 82.3; Potassium 4.5 mmol/L (3.5-5.1)
[2019-09-11] MEDS: ALBUT/IPRATROP 3MG/0.5MG NEB 3 ML VIAL NEB SCH ×4 (07:29→19:23)
[2019-09-11 07:35] LABS: Mean Platelet Volume 9.5 fL (7.4-10.4); Platelet Count 94 K/uL (130-400)
[2019-09-11 07:38] LABS: Dohle Bodies 1+; Platelet Estimate Decreased (Normal)
[2019-09-11 07:40] LABS: ALC (manual) 2.24 K/uL (1.2-3.4); ANC (manual) 5.06 K/uL (1.4-6.5); Basophils # (manual) 0.24 K/uL (0-0.2); Basophils % (manual) 2.6 %; Blast # (manual) 0.16 K/uL (0-0); Blast Cells % (manual) 1.7 %; Lymphocytes # (manual) 2.24 K/uL (1.2-3.4); Lymphocytes % (manual) 24.3 %; Monocytes # (manual) 1.52 K/uL (0.11-0.59); Monocytes % (manual) 16.5 %; Neutrophils # (manual) 5.06 K/uL (1.4-6.5); Neutrophils % (manual) 54.9 %
[2019-09-11] MEDS: INSULIN ASPART 100 UNITS/ML 3 ML PEN SC SCH ×4 (08:15→21:08)
[2019-09-11] MEDS: INSULIN GLARGINE SOLOSTAR 100 UNITS/ML 3 ML PEN SC SCH ×2 (08:16→21:07)
[2019-09-11] MEDS: BENZONATATE 100 MG CAPSULE PO SCH ×3 (08:18→20:08)
[2019-09-11] MEDS: guaiFENesin 600 MG TABCR PO SCH ×2 (08:18→20:08)
[2019-09-11] MEDS: carvediloL 3.125 MG TAB PO SCH ×2 (08:18→20:08)
[2019-09-11] MEDS: MAGNESIUM OXIDE 400 MG TAB PO SCH (08:18)
[2019-09-11] MEDS: FINASTERIDE 5 MG TAB PO SCH (08:19)
[2019-09-11] MEDS: FENOFIBRATE NANOCRYSTALLIZED 145 MG TABLET PO SCH (08:19)
[2019-09-11] MEDS: ASPIRIN 81 MG ECTAB PO SCH (08:19)
[2019-09-11] MEDS: ASCORBIC ACID 500 MG TAB PO SCH (08:19)
[2019-09-11] MEDS: CITALOPRAM 20 MG TAB PO SCH (08:19)
[2019-09-11] MEDS: PANTOprazole 40 MG TAB PO SCH (08:19)
[2019-09-11] MEDS: TERAZOSIN HCL 5 MG CAP PO SCH (08:19)
[2019-09-11] MEDS: CLOPIDOGREL BISULFATE 75 MG TAB PO SCH (08:19)
[2019-09-11] MEDS: FOLIC ACID 1 MG TAB PO SCH (08:19)
[2019-09-11] MEDS: FUROSEMIDE 20 MG TAB PO SCH (08:19)
[2019-09-11] MEDS: cefTRIAXone SODIUM 2,000 MG in DEXTROSE 5% 50 ML IV SCH (17:01)
--- NOTE | 2019-09-11 18:28 | Hospitalist Progress Note ---
Date of Service September 11, 2019 Assessment & Plan (1) Pneumonia: RML. CXR 09/08 with b/l infiltrates -- uncertain if b/l infiltrates are from infection vs ILD. Cont rocephin -- day #6. Plan 10-day course of antibiotics given severity of his illness. completed 5 day course of zithromax. Blood cx's negative. COVID-19 negative. cont tessalon, mucinex, incentive maria ines, and flutter valve for pulmonary toilet. Sputum gram stain with moderate GNR but culture grew fungus - ID to follow. change rocephin to levaquin tomorrow. (2) Acute and chronic respiratory failure with hypoxia: Chronic hypoxic resp failure 2nd to COPD and/or ILD, on home O2. Acute component 2nd to RML pneumonia and COPD exacerbation. Treating both. (3) COPD exacerbation: modestly improved today but no wean on TID solumedrol - hopefully wean tomorrow. cont scheduled nebs q6h. pulm toilet. supportive care. (4) Diabetes mellitus type 2, uncontrolled: had hypoglycemia today. cont lantus 30 units BID but loosen novolog correction factor & carb ratio holding PO meds (5) 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 at home for such H/H acceptable prednisone on hold as patient on IV steroids (6) CAD (coronary artery disease): no evidence of ischemia cont asa, coreg, plavix, lasix, MICH he is statin intolerant (7) Chronic systolic CHF (congestive heart failure): EF 45-50% remains compensated cont BB cont MICH cont lasix (8) CLL (chronic lymphocytic leukemia): noted follows with heme/onc daily CBC concomitant autoimmune hemolytic anemia (9) BPH (benign prostatic hyperplasia): cont finasteride cont terazosin (10) GERD without esophagitis: cont PPI (11) Hyperlipidemia: statin intolerant (12) HTN (hypertension): cont home meds controlled (13) History of stroke: cont asa and plavix for secondary prevention (14) 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 repeat calcium in am check intact PTH as well (16) Dysphagia: candidiasis?? add nystatin 5cc ac/hs swish/swallow speech consult change diet to minced/moist while awaiting formal speech eval (17) DVT prophylaxis: lovenox 40mg daily cont PT/OT updated by phone 09/07, 09/08 and 09/10 Admission and Anticipated Discharge Date Admission Date: September 06, 2019 Subjective patient "feeling better" than yesterday. still coughing but not as severe. no dyspnea at rest. still with ROBERTS - approaching his baseline amount. o2 weaned down to usual [place] O2 amount from home. tele stable overnight. eating well. moving bowels. states he choked on mashed potatoes yesterday. at home he has dysphagia as well. also with mild odynophagia at this time which is new. Review of Systems Constitutional: no fever and no chills Respiratory: + sputum production (but minimal); no hemoptysis Cardiovascular: no chest pain, no orthopnea, no paroxysmal nocturnal dyspnea and no edema Gastrointestinal: no abdominal pain Physical Exam Constitutional: no acute distress and no altered mental status ENMT: external ear and nose normal, oropharynx normal Respiratory: no respiratory distress Auscultation: + crackles (Bases), + rhonchi (focal- right base) and + wheezes (b/l; but improved today ) Cardiovascular: Rate/Rhythm: regular rate and regular rhythm Heart Sounds: normal S1 and normal S2; no murmur Vessels: posterior tibial pulses present and dorsalis pedis pulses present; no JVD Extremities: no edema Gastrointestinal (Abdomen): normal bowel sounds, soft, nontender, no hepatosplenomegaly Psychiatric: A+Ox3, euthymic affect Results & Data Results & Data ([facility]) Vital Signs (Past 12 Hours) Vital Signs Temp Pulse Pulse Resp BP Pulse Ox 09/11/19 15:42 79 18 97 09/11/19 15:30 36.5 C 77 18 116/71 98 09/11/19 12:05 36.6 C 104 H 20 104/64 90 09/11/19 11:17 102 H 20 91 09/11/19 08:00 73 09/11/19 07:48 36.6 C 102 H 20 105/64 90 09/11/19 07:29 83 18 92 Laboratory Results Laboratory Results - last 24 hr 09/10/19 09/11/19 09/11/19 21:08 05:54 05:54 WBC 9.21 RBC 3.87 L Hgb 12.6 L Hct 36.4 L MCV 94.1 MCH 32.6 MCHC 34.6 RDW Std Deviation 48.9 H RDW Coeff of Ra 14.3 Plt Count 94 L MPV 9.5 Absolute Nucleated RBC 0.02 H Nucleated RBC % (auto) 0.2 Neutrophils % (Manual) 54.9 Lymphocytes % (Manual) 24.3 Monocytes % (Manual) 16.5 Basophils % (Manual) 2.6 Blast Cells % (Manual) 1.7 Neutrophils # (Manual) 5.06 Total Absolute Neuts 5.06 Lymphocytes # (Manual) 2.24 Total Abs Lymphocytes 2.24 Monocytes # (Manual) 1.52 H Basophils # (Manual) 0.24 H Blast Cells # (Man) 0.16 H Blood Smear Review Pending Dohle Bodies 1+ Platelet Estimate Decreased L Sodium 138 Potassium 4.5 Chloride 98 Carbon Dioxide 38 H Anion Gap 2.0 L BUN 36 H Creatinine 0.85 Est Cr Clr Drug Dosing 71.6 Est GFR ( Amer) 95.4 Est GFR (Non-Af Amer) 82.3 BUN/Creatinine Ratio 42.8 H Glucose 130 H POC Glucose 195 H Calcium 10.7 H 09/11/19 09/11/19 09/11/19 07:13 11:34 16:19 WBC RBC Hgb Hct MCV MCH MCHC RDW Std Deviation RDW Coeff of Ra Plt Count MPV Absolute Nucleated RBC Nucleated RBC % (auto) Neutrophils % (Manual) Lymphocytes % (Manual) Monocytes % (Manual) Basophils % (Manual) Blast Cells % (Manual) Neutrophils # (Manual) Total Absolute Neuts Lymphocytes # (Manual) Total Abs Lymphocytes Monocytes # (Manual) Basophils # (Manual) Blast Cells # (Man) Blood Smear Review Dohle Bodies Platelet Estimate Sodium Potassium Chloride Carbon Dioxide Anion Gap BUN Creatinine Est Cr Clr Drug Dosing Est GFR ( Amer) Est GFR (Non-Af Amer) BUN/Creatinine Ratio Glucose POC Glucose 142 H 242 H 57 L* Calcium 09/11/19 09/11/19 16:21 16:38 WBC RBC Hgb Hct MCV MCH MCHC RDW Std Deviation RDW Coeff of Ra Plt Count MPV Absolute Nucleated RBC Nucleated RBC % (auto) Neutrophils % (Manual) Lymphocytes % (Manual) Monocytes % (Manual) Basophils % (Manual) Blast Cells % (Manual) Neutrophils # (Manual) Total Absolute Neuts Lymphocytes # (Manual) Total Abs Lymphocytes Monocytes # (Manual) Basophils # (Manual) Blast Cells # (Man) Blood Smear Review Dohle Bodies Platelet Estimate Sodium Potassium Chloride Carbon Dioxide Anion Gap BUN Creatinine Est Cr Clr Drug Dosing Est GFR ( Amer) Est GFR (Non-Af Amer) BUN/Creatinine Ratio Glucose POC Glucose 56 L* 78 Calcium sputum cx with fungus PG Care Time/CCT Total # of Minutes Spent Total Time Spent with Patient: Total time spent is greater than 50% in coordination of care (as documented) at patient's floor/unit and/or counseling patient: Coding Level of Care Code 64165 Subseq Hosp Care Lvl 3 Diagnoses Pneumonia J18.9 Laterality: right Lung location: middle lobe of lung Pneumonia type: due to unspecified organism Acute and chronic respiratory failure with hypoxia J96.21 COPD exacerbation J44.1 Diabetes mellitus type 2, uncontrolled E11.65 Hemolytic anemia D59.1 Hemolytic anemia type: acquired, autoimmune, other CAD (coronary artery disease) I25.10 Associated angina: without angina Coronary Disease-Associated Artery/Lesion type: [place] artery [place] vs. transplanted heart: [place] heart Chronic systolic CHF (congestive heart failure) I50.22 CLL (chronic lymphocytic leukemia) C91.90 BPH (benign prostatic hyperplasia) N40.0 GERD without esophagitis K21.9 Hyperlipidemia E78.5 HTN (hypertension) I10 History of stroke Z86.73 Infection due to fungus B49 Hypercalcemia E83.52 Dysphagia R13.10 DVT prophylaxis Z29.9 (1) Hemolytic anemia Hemolytic anemia type: acquired, autoimmune, other Qualified Code(s): D59.1 - Other autoimmune hemolytic anemias (2) CAD (coronary artery disease) Associated angina: without angina Coronary Disease-Associated Artery/Lesion type: [place] artery [place] vs. transplanted heart: [place] heart Qualified Code(s): I25.10 - Atherosclerotic heart disease of [place] coronary artery without angina pectoris (3) Pneumonia Laterality: right Lung location: middle lobe of lung Pneumonia type: due to unspecified organism Qualified Code(s): J18.9 - Pneumonia, unspecified organism
[2019-09-11] MEDS: SUCRALFATE 1 GM/10 ML UDC PO SCH (20:08)
[2019-09-11] MEDS: ATORVASTATIN 40 MG TAB PO SCH (20:08)
[2019-09-11] MEDS: NYSTATIN SUSP 500,000 U/5 ML UDC PO SCH (20:08)
[2019-09-11] MEDS: ENOXAPARIN INJ 40 MG/0.4 ML SYR SQ SCH (21:07)
[2019-09-12] MEDS: methylPREDNISolone 40 MG in SYRINGE 0 ML IV SCH ×3 (04:06→20:06)
[2019-09-12 07:14] LABS: Mean Corpuscular Hemoglobin 32.2 pg (25-34); Mean Corpuscular Hgb Conc 34.2 g/dL (32-36); Mean Corpuscular Volume 94.1 fL (80-100); RDW Coefficient of Variation 14.1 % (11.5-14.5); RDW Standard Deviation 49.2 fL (36.4-46.3); Red Blood Count 4.04 M/uL (4.7-6.1); White Blood Count 8.86 K/uL (4.8-10.8)
[2019-09-12] MEDS: ALBUT/IPRATROP 3MG/0.5MG NEB 3 ML VIAL NEB SCH ×4 (07:27→19:25)
[2019-09-12 07:42] LABS: BUN Creatinine Ratio 41.3 (10-20); Calcium 11.1 mg/dl (8.5-10.1); Creatinine Clr Calc Pharmacy 74.2 ml/min; Est GFR (African American) 96.8; Est GFR (Non-African American) 83.5; Potassium 4.7 mmol/L (3.5-5.1)
[2019-09-12 08:17] LABS: Mean Platelet Volume 10.1 fL (7.4-10.4); Platelet Count 65 K/uL (130-400)
[2019-09-12 08:19] LABS: ALC (manual) 2.15 K/uL (1.2-3.4); ANC (manual) 5.62 K/uL (1.4-6.5); Blast # (manual) 0.08 K/uL (0-0); Blast Cells % (manual) 0.9 %; Lymphocytes # (manual) 2.15 K/uL (1.2-3.4); Lymphocytes % (manual) 24.3 %; Metamyelocytes # (manual) 0.08 K/uL (0-0); Metamyelocytes % (manual) 0.9 %; Monocytes # (manual) 0.85 K/uL (0.11-0.59); Monocytes % (manual) 9.6 %; Myelocytes # (manual) 0.08 K/uL (0-0); Myelocytes % (manual) 0.9 %; Neutrophils # (manual) 5.62 K/uL (1.4-6.5); Neutrophils % (manual) 63.4 %; Platelet Estimate Decreased (Normal); RBC Morphology Unremarkable
[2019-09-12] MEDS: NYSTATIN SUSP 500,000 U/5 ML UDC PO SCH ×4 (08:23→20:06)
[2019-09-12] MEDS: ASPIRIN 81 MG ECTAB PO SCH (08:23)
[2019-09-12] MEDS: SUCRALFATE 1 GM/10 ML UDC PO SCH ×4 (08:23→20:06)
[2019-09-12] MEDS: guaiFENesin 600 MG TABCR PO SCH ×2 (08:23→20:07)
[2019-09-12] MEDS: CITALOPRAM 20 MG TAB PO SCH (08:24)
[2019-09-12] MEDS: FINASTERIDE 5 MG TAB PO SCH (08:24)
[2019-09-12] MEDS: FUROSEMIDE 20 MG TAB PO SCH (08:24)
[2019-09-12] MEDS: FOLIC ACID 1 MG TAB PO SCH (08:24)
[2019-09-12] MEDS: FENOFIBRATE NANOCRYSTALLIZED 145 MG TABLET PO SCH (08:24)
[2019-09-12] MEDS: PANTOprazole 40 MG TAB PO SCH (08:24)
[2019-09-12] MEDS: BENZONATATE 100 MG CAPSULE PO SCH ×3 (08:24→20:07)
[2019-09-12] MEDS: TERAZOSIN HCL 5 MG CAP PO SCH (08:24)
[2019-09-12] MEDS: carvediloL 3.125 MG TAB PO SCH ×2 (08:24→20:07)
[2019-09-12] MEDS: ASCORBIC ACID 500 MG TAB PO SCH (08:24)
[2019-09-12] MEDS: MAGNESIUM OXIDE 400 MG TAB PO SCH (08:24)
[2019-09-12] MEDS: CLOPIDOGREL BISULFATE 75 MG TAB PO SCH (08:24)
[2019-09-12] MEDS ORDERED: CEFDINIR 300 MG CAP PO SCH (09:00)
[2019-09-12] MEDS: INSULIN ASPART 100 UNITS/ML 3 ML PEN SC SCH ×4 (09:12→20:39)
[2019-09-12] MEDS: INSULIN GLARGINE SOLOSTAR 100 UNITS/ML 3 ML PEN SC SCH ×2 (09:17→20:38)
[2019-09-12 10:00] LABS: Fibrinogen 288 mg/dl (184-400); Partial Thromboplastin Ratio 0.9; Partial Thromboplastin Time 24.2 Seconds (21.0-31.0); Prothrombin Time 10.7 Seconds (9.0-12.0)
[2019-09-12 10:18] LABS: D Dimer 1060 ug/L FEU (0-500)
[2019-09-12] MEDS ORDERED: levoFLOXacin 750 MG TAB PO SCH (11:00)
--- NOTE | 2019-09-12 15:26 | Hospitalist Progress Note ---
Date of Service September 12, 2019 Assessment & Plan (1) Thrombocytopenia: drop in platelets is acute, as platelets were normal at admission. the drop in platelets parallels the rapid rise in calcium. also has blasts on differential over the last 2 days. HIT theoretically possible but would be rather quick for such to develop (typically occurs 7-10 days after heparin/lovenox is started). with that said will place lovenox on hold starting w/ tomorrow's dose. DIC w/u negative. peripheral smear pending. formal consult placed to Dr Cash from [facility] Hematology/Oncology. I did speak with Dr Cash today regarding this issue. He recommends retic, LDH, and uric acid to r/o hemolysis from his AIHA. H/H stable, however. if platelets continue to drop, and in light of blasts seen -- need for bone marrow bx or other w/u ?? repeat CBC am. (2) Hypercalcemia: worse today. corrected level closer to 11.5. significant rise in 4-5 days. I believe the fatigue and decrease in appetite is from the high calcium. cause uncertain - related to his hematological issues? phos level wnl. PTH suppressed. vitamin D level low. PTH-related peptide to be sent. spoke with Dr Andino from nephrology - * will give Zometa 4mg IV x 1 * hydrate with NS at 100cc/hr overnight; give lasix IV if needed if any concern of fluid overload * repeat BMP/calcium am * may need additional imaging to look for malignancy (CT abd/pelvis, etc) * if calcium worsens then FORMAL consult with nephrology (3) Pneumonia: RML. CXR 09/08 with b/l infiltrates -- uncertain if b/l infiltrates are from infection vs ILD. completed full 7 day course of IV rocephin. completed 5 day course of zithromax. Blood cx's negative. COVID-19 negative. cont tessalon, mucinex, incentive maria ines, and flutter valve for pulmonary toilet. Sputum gram stain with moderate GNR but culture grew aspergillus - see below. formal consult placed to Dr Patel from pulmonary today because of refractory pulmonary symptoms and wheezing. he advised no further antibiotics. also feels aspergillus likely to be contamination. 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 Baseline NC O2 requirements 4-5 L. Acute component 2nd to RML pneumonia and COPD/ILD exacerbation. Treating both. (5) COPD exacerbation: wheezing worse today -- leave steroids as is. cont scheduled nebs q6h. pulm toilet. supportive care. 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 cx uncertain if truly pathogenic vs contamination Dr Patel feels likely to be contaminant will send aspergillus titers as well as beta 1,3 D-glucan and aspergillus IgE just to be complete certainly he is at risk of aspergillus given his immunocompromised state from CLL, chronic prednisone usage, ILD, etc (8) Diabetes mellitus type 2, uncontrolled: control adequate with lantus/novolog adjust as needed (9) 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 at home for such H/H acceptable prednisone on hold as patient on IV steroids spoke with Dr Cash from [facility] heme/onc - advises retic, LDH, uric acid to ensure no active hemolysis; H/H stable however (10) CAD (coronary artery disease): no evidence of ischemia cont asa, coreg, plavix, lasix, MICH he is statin intolerant (11) Chronic systolic CHF (congestive heart failure): EF 45-50% remains compensated cont BB cont MICH cont lasix (12) CLL (chronic lymphocytic leukemia): noted [facility] concomitant autoimmune hemolytic anemia now with ?blasts on CBC, rising calcium, dropping platelets formal consult placed to Dr Cash spoke with Dr Cash extensively today see above (13) BPH (benign prostatic hyperplasia): cont finasteride cont terazosin (14) GERD without esophagitis: cont PPI (15) Hyperlipidemia: statin intolerant (16) HTN (hypertension): cont home meds controlled (17) History of stroke: cont asa and plavix for secondary prevention despite dropping platelets leave for now but if platelets drop to <50 may need to hold these meds (18) Dysphagia: candidiasis?? added nystatin 5cc ac/hs swish/swallow speech consult appreciated video swallow this week change diet to minced/moist (19) DVT prophylaxis: lovenox 40mg daily - hold starting in am cont PT/OT updated by phone 09/07, 09/08, 09/10 left message on 09/11 total time today 80 minutes between bedside rounds, speaking with 3 different consultants and coordinating his care, calling , reviewing data, etc Admission and Anticipated Discharge Date Admission Date: September 06, 2019 Subjective tele stable overnight. patient sleeping upon arrival. after waking he reports that his appetite has dropped since yesterday & he is more fatigued. still with coughing - no worse than previous. still with ROBERTS - no worse than previous. no orthopnea, PND or dyspnea at rest. no chest pain or abd pain. Review of Systems Constitutional: + fatigue and + anorexia; no fever and no chills Respiratory: + cough, + dyspnea, + dyspnea on exertion, + sputum production (Scant) and + wheezing; no hemoptysis Cardiovascular: no chest pain, no orthopnea, no paroxysmal nocturnal dyspnea and no edema Gastrointestinal: no abdominal pain, no nausea and no vomiting Physical Exam Constitutional: no acute distress and no altered mental status ENMT: external ear and nose normal, oropharynx normal Respiratory: no respiratory distress Auscultation: + crackles (Bases, worse on right), + rhonchi (focal- right base) and + wheezes (b/l; Worse than 09/10 exam) Cardiovascular: Rate/Rhythm: regular rate and regular rhythm Heart Sounds: normal S1 and normal S2; no murmur Vessels: posterior tibial pulses present and dorsalis pedis pulses present; no JVD Extremities: no edema Gastrointestinal (Abdomen): normal bowel sounds, soft, nontender, no hepatosplenomegaly Psychiatric: A+Ox3, euthymic affect Results & Data Results & [facility] ([facility]) Vital Signs (Past 12 Hours) Vital Signs Temp Pulse Pulse Pulse Resp BP Pulse Ox 09/12/19 15:13 108 H 09/12/19 11:53 36.6 C 103 H 18 123/76 94 09/12/19 11:04 89 20 98 09/12/19 08:00 75 09/12/19 07:40 36.5 C 72 20 107/62 97 09/12/19 07:28 78 20 97 Diagnostic Findings Laboratory Results - last 24 hr 09/11/19 09/11/19 09/11/19 16:19 16:21 16:38 WBC RBC Hgb Hct MCV MCH MCHC RDW Std Deviation RDW Coeff of Ra Plt Count MPV Neutrophils % (Manual) Lymphocytes % (Manual) Monocytes % (Manual) Metamyelocytes % (Man) Myelocytes % (Man) Blast Cells % (Manual) Neutrophils # (Manual) Total Absolute Neuts Lymphocytes # (Manual) Total Abs Lymphocytes Monocytes # (Manual) Metamyelocytes # (Man) Myelocytes # (Manual) Blast Cells # (Man) Platelet Estimate RBC Morphology PT INR APTT PTT Ratio Fibrinogen Fibrin Degrad Products D-Dimer Sodium Potassium Chloride Carbon Dioxide Anion Gap BUN Creatinine Est Cr Clr Drug Dosing Est GFR ( Amer) Est GFR (Non-Af Amer) BUN/Creatinine Ratio Glucose POC Glucose 57 L* 56 L* 78 Calcium 25-OH Vitamin D Total PTH Intact Aspergillus flavus Ab Aspergill fumigatus Ab Aspergillus niger Ab Beta-(1,3)-D-Glucan B-(1,3)-D-Glucan Intrp 09/11/19 09/12/19 09/12/19 20:21 06:25 06:25 WBC 8.86 RBC 4.04 L Hgb 13.0 L Hct 38.0 L MCV 94.1 MCH 32.2 MCHC 34.2 RDW Std Deviation 49.2 H RDW Coeff of Ra 14.1 Plt Count 65 L MPV 10.1 Neutrophils % (Manual) 63.4 Lymphocytes % (Manual) 24.3 Monocytes % (Manual) 9.6 Metamyelocytes % (Man) 0.9 Myelocytes % (Man) 0.9 Blast Cells % (Manual) 0.9 Neutrophils # (Manual) 5.62 Total Absolute Neuts 5.62 Lymphocytes # (Manual) 2.15 Total Abs Lymphocytes 2.15 Monocytes # (Manual) 0.85 H Metamyelocytes # (Man) 0.08 H Myelocytes # (Manual) 0.08 H Blast Cells # (Man) 0.08 H Platelet Estimate Decreased L RBC Morphology Unremarkable PT INR APTT PTT Ratio Fibrinogen Fibrin Degrad Products D-Dimer Sodium 137 Potassium 4.7 Chloride 96 L Carbon Dioxide 39 H Anion Gap 2.0 L BUN 34 H Creatinine 0.82 Est Cr Clr Drug Dosing 74.2 Est GFR ( Amer) 96.8 Est GFR (Non-Af Amer) 83.5 BUN/Creatinine Ratio 41.3 H Glucose 101 H POC Glucose 141 H Calcium 11.1 H 25-OH Vitamin D Total PTH Intact Aspergillus flavus Ab Aspergill fumigatus Ab Aspergillus niger Ab Beta-(1,3)-D-Glucan B-(1,3)-D-Glucan Intrp 09/12/19 09/12/19 09/12/19 06:25 07:19 09:31 WBC RBC Hgb Hct MCV MCH MCHC RDW Std Deviation RDW Coeff of Ra Plt Count MPV Neutrophils % (Manual) Lymphocytes % (Manual) Monocytes % (Manual) Metamyelocytes % (Man) Myelocytes % (Man) Blast Cells % (Manual) Neutrophils # (Manual) Total Absolute Neuts Lymphocytes # (Manual) Total Abs Lymphocytes Monocytes # (Manual) Metamyelocytes # (Man) Myelocytes # (Manual) Blast Cells # (Man) Platelet Estimate RBC Morphology PT 10.7 INR 1.0 APTT 24.2 PTT Ratio 0.9 Fibrinogen 288 Fibrin Degrad Products D-Dimer 1060 H* Sodium Potassium Chloride Carbon Dioxide Anion Gap BUN Creatinine Est Cr Clr Drug Dosing Est GFR ( Amer) Est GFR (Non-Af Amer) BUN/Creatinine Ratio Glucose POC Glucose 101 H Calcium 25-OH Vitamin D Total PTH Intact 8.9 L Aspergillus flavus Ab Aspergill fumigatus Ab Aspergillus niger Ab Beta-(1,3)-D-Glucan B-(1,3)-D-Glucan Intrp 09/12/19 09/12/19 09/12/19 09:31 09:31 09:31 WBC RBC Hgb Hct MCV MCH MCHC RDW Std Deviation RDW Coeff of Ra Plt Count MPV Neutrophils % (Manual) Lymphocytes % (Manual) Monocytes % (Manual) Metamyelocytes % (Man) Myelocytes % (Man) Blast Cells % (Manual) Neutrophils # (Manual) Total Absolute Neuts Lymphocytes # (Manual) Total Abs Lymphocytes Monocytes # (Manual) Metamyelocytes # (Man) Myelocytes # (Manual) Blast Cells # (Man) Platelet Estimate RBC Morphology PT INR APTT PTT Ratio Fibrinogen Fibrin Degrad Products 10-40 H D-Dimer Sodium Potassium Chloride Carbon Dioxide Anion Gap BUN Creatinine Est Cr Clr Drug Dosing Est GFR ( Amer) Est GFR (Non-Af Amer) BUN/Creatinine Ratio Glucose POC Glucose Calcium 25-OH Vitamin D Total 12.7 L PTH Intact Aspergillus flavus Ab Pending Aspergill fumigatus Ab Pending Aspergillus niger Ab Pending Beta-(1,3)-D-Glucan Pending B-(1,3)-D-Glucan Intrp Pending 09/12/19 11:19 WBC RBC Hgb Hct MCV MCH MCHC RDW Std Deviation RDW Coeff of Ra Plt Count MPV Neutrophils % (Manual) Lymphocytes % (Manual) Monocytes % (Manual) Metamyelocytes % (Man) Myelocytes % (Man) Blast Cells % (Manual) Neutrophils # (Manual) Total Absolute Neuts Lymphocytes # (Manual) Total Abs Lymphocytes Monocytes # (Manual) Metamyelocytes # (Man) Myelocytes # (Manual) Blast Cells # (Man) Platelet Estimate RBC Morphology PT INR APTT PTT Ratio Fibrinogen Fibrin Degrad Products D-Dimer Sodium Potassium Chloride Carbon Dioxide Anion Gap BUN Creatinine Est Cr Clr Drug Dosing Est GFR ( Amer) Est GFR (Non-Af Amer) BUN/Creatinine Ratio Glucose POC Glucose 150 H Calcium 25-OH Vitamin D Total PTH Intact Aspergillus flavus Ab Aspergill fumigatus Ab Aspergillus niger Ab Beta-(1,3)-D-Glucan B-(1,3)-D-Glucan Intrp sputum cx - aspergillus species PG Care Time/CCT Total # of Minutes Spent Total Time Spent with Patient: Total time spent is greater than 50% in coordination of care (as documented) at patient's floor/unit and/or counseling patient: Prolonged Care Time Prolonged Care Time: Yes Total Prolonged Care Time: 80 Coding Level of Care Code 50209 Subseq Hosp Care Lvl 3 (25 - SIGNIFICANT, SEPARATELY IDENTIFIABLE ) Diagnoses Thrombocytopenia D69.6 Hypercalcemia E83.52 Pneumonia J18.9 Laterality: right Lung location: middle lobe of lung Pneumonia type: due to unspecified organism Acute and chronic respiratory failure with hypoxia J96.21 COPD exacerbation J44.1 Interstitial lung disease J84.9 Infection due to fungus B49 Diabetes mellitus type 2, uncontrolled E11.65 Hemolytic anemia D59.1 Hemolytic anemia type: acquired, autoimmune, other CAD (coronary artery disease) I25.10 Associated angina: without angina Coronary Disease-Associated Artery/Lesion type: [place] artery [place] vs. transplanted heart: [place] heart Chronic systolic CHF (congestive heart failure) I50.22 CLL (chronic lymphocytic leukemia) C91.90 BPH (benign prostatic hyperplasia) N40.0 GERD without esophagitis K21.9 Hyperlipidemia E78.5 HTN (hypertension) I10 History of stroke Z86.73 Dysphagia R13.10 DVT prophylaxis Z29.9 Additional Codes Prolonged Care Time - Prolonged Care Time: Yes ([id number]) Time Spent (min) 80 (1) Hemolytic anemia Hemolytic anemia type: acquired, autoimmune, other Qualified Code(s): D59.1 - Other autoimmune hemolytic anemias (2) CAD (coronary artery disease) Associated angina: without angina Coronary Disease-Associated Artery/Lesion type: [place] artery [place] vs. transplanted heart: [place] heart Qualified Code(s): I25.10 - Atherosclerotic heart disease of [place] coronary artery without angina pectoris (3) Pneumonia Laterality: right Lung location: middle lobe of lung Pneumonia type: due to unspecified organism Qualified Code(s): J18.9 - Pneumonia, unspecified organism
--- NOTE | 2019-09-12 15:52 | Pulmonary Consultation ---
Date of Consultation September 12, 2019 Assessment & Plan (1) Interstitial lung disease: Impression: 79-year-old male with history of interstitial lung disease, reportedly NSIP based on review of his outpatient pulmonology notes. He has significant interstitial changes on CT scan and PFTs demonstrated significant restriction. Does not appear the patient was a candidate for a surgical lung biopsy and I am unclear what serological evaluation has been conducted previously. 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 He was admitted with increasing shortness of breath and is now oxygen dependent. I do not have prior CT scans for comparison to ascertain whether or not there is been temporal progression of his interstitial lung disease. Recommendations: 1. ILD: Unclear etiology. The patient is on steroids currently. I do not see that there is much additional to add for this patient at this point time. His chief complaint is cough. He is on Mucinex. We will add flutter valve and a trial of hypertonic saline to see if this offers him a clinical benefit. He was encouraged to remain ambulatory. 2. Bronchiectasis: Reviewed the patient sputum cultures. I think he is received appropriate antimicrobial therapy. In the absence of fevers, leukocytosis, or other constitutional symptoms would not recommend additional antibiotics at this point time. 3. The patient would benefit from pulmonary rehab in the outpatient setting. H e will need to be clinically stable and this is deferred to his outpatient air conditioning mechanic. 4. We will add Anoro to his regimen to see if this offers him a clinical benefit as well. Unfortunately, I think the patient's interstitial lung disease appears to be progressive and is unclear that we are going to have a significant impact on improving his overall outcome. He will likely need to use more oxygen when he goes home. He will require close outpatient follow-up with his air conditioning mechanic at [facility]. (2) Bronchiectasis: (3) Hypoxemia: History of Present Illness Attending Physician: Sukumar Hathaway History of Present Illness Asked by the hospitalist to assist in management of this patient with acute on chronic hypoxemic respiratory failure. History is obtained from review the electronic medical record as well as discussion with the hospitalist and carlos garcia with the patient. The patient is an 79-year-old male who is followed by a [facility] pulmonology in [place]. He is undergone bronchoscopy in the past and currently carries a diagnosis of NSIP. He has a history of chronic respiratory failure and was using oxygen nightly and supposed to be using it intermittently during the day. His last PFTs were performed over a year ago and demonstrated moderate to severe restriction with severely decreased diffusion capacity. The patient was admitted to the hospital 09/06/2019 with complaints of progressive shortness of breath. He did not report fevers chills or night sweats but had been coughing and bringing up small amounts of phlegm. He was given oxygen in the emergency room. His BNP was normal as was troponin. CT angiogram showed interstitial lung disease with significant bronchiectasis with a focal area in the right middle lobe favoring an infectious or inflammatory process. He was treated with antibiotics. He never had a fever or elevated white blood cell count. He has been weaned down to oxygen at 4 L which appears to be close to his baseline. The patient reports that he feels about 50 to 60% better. He leads a very sedentary lifestyle at home. He has empirically been placed on high-dose steroids while here in the hospital as well. Allergies Allergy/AdvReac Type Severity Reaction Status Date / Time atorvastatin [From Lipitor] Allergy Unknown Verified 09/01/19 09:00 rosuvastatin [From Crestor] Allergy Verified 09/01/19 09:00 Home Medications Home Medications Medication Instructions Recorded Confirmed Type aspirin 81 mg tablet,delayed 81 mg PO DAILY tab 07/28/18 09/06/19 History release folic acid 1 mg tablet 1 mg PO DAILY #30 tab 07/28/18 09/06/19 History finasteride 5 mg tablet 5 mg PO DAILY #90 tab 08/17/18 09/06/19 Rx citalopram 20 mg tablet 20 mg PO DAILY #30 tab 03/31/19 09/06/19 Rx ascorbate calcium (vitamin C) 500 500 mg PO DAILY 04/01/19 09/06/19 History mg tablet magnesium oxide 400 mg (241.3 mg 400 mg PO DAILY 04/01/19 09/06/19 History magnesium) tablet carvedilol 3.125 mg tablet 3.125 mg PO BID #180 tab 05/26/19 09/06/19 Rx clopidogrel 75 mg tablet 75 mg PO DAILY #90 tab 05/26/19 09/06/19 Rx glimepiride 1 mg tablet 1 mg PO DAILY #90 tab 05/27/19 09/06/19 Rx pantoprazole 40 mg tablet,delayed 40 mg PO DAILY #90 tab 05/27/19 09/06/19 Rx release terazosin 5 mg capsule 5 mg PO DAILY #90 cap 05/27/19 09/06/19 Rx fenofibrate micronized 134 mg 134 mg PO DAILY #90 cap NS 05/28/19 09/06/19 Rx capsule furosemide 20 mg tablet 20 mg PO DAILY 08/24/19 09/06/19 History lisinopril 20 mg tablet 10 mg PO DAILY #90 tab 08/24/19 09/06/19 Rx meclizine 25 mg tablet 25 mg PO TID PRN #90 tab 08/24/19 09/06/19 Rx alprazolam 0.25 mg tablet 0.25 mg PO BID PRN #60 tab 08/31/19 09/06/19 Rx Patient History Medical History BPH (benign prostatic hyperplasia) (Chronic) CAD (coronary artery disease) (Chronic) Cardiomyopathy (Chronic) CLL (chronic lymphocytic leukemia) (Chronic) GERD without esophagitis (Chronic) Hemolytic anemia HTN (hypertension) (Chronic) Hyperlipidemia (Chronic) Hypomagnesemia (Chronic) Paroxysmal ventricular tachycardia Stroke (Acute) Type 2 diabetes mellitus (Chronic) Surgical History H/O cardiac catheterization H/O colonoscopy H/O esophagogastroduodenoscopy History of cataract surgery bilateral Hx of cholecystectomy S/P coronary artery stent placement x2 Family History Mother Hypertension Stroke Sister Hypertension Breast cancer Father Myocardial infarction Cardiac disorder Brother Myocardial infarction Stroke Denies family history of Ovarian cancer Prostate cancer Colorectal cancer Social History Smoking Status: Former smoker Age Started Using Tobacco: 21; Age Quit Using Tobacco: 63; packs per day: 1.5; Second Hand Exposure: Yes (spouse/quit early on though); Hx Alcohol Use: No Hx Substance Use: No Preferred Language: [place] Communication Ability: Effective Visual Impairment: Partially Limited Hearing Ability: Hard of Hearing Jointer Operator Required: No Beliefs That Will Affect Care: None marital status: Current Living Situation: Spouse current occupational status: employed and retired current occupation: still drives bus for school Other Information That Helps Us Care for You: No Feels Safe at Home: Yes Safety Concerns: Feels Safe At This Time Childhood Exposure to Second-Hand Smoke: No caffeine: Yes (coffee 2-3 cups in am) Dental Care, Regularly: No Physical Activity Frequency: Does not Exercise Seatbelt Use: sometimes Sunscreen Use: No Do you think of yourself as: straight/heterosexual Review of Systems Review of Systems: Please refer to the hospitalist's progress notes. I have no additions or deletions Physical Exam Constitutional: no acute distress and no altered mental status ENMT: external ear and nose normal, oropharynx normal Respiratory: no respiratory distress Auscultation: + crackles (Bases), + rhonchi (focal- right base) and + wheezes (b/l; but improved today ) Cardiovascular: Rate/Rhythm: regular rate and regular rhythm Heart Sounds: normal S1 and normal S2; no murmur Vessels: posterior tibial pulses present and dorsalis pedis pulses present; no JVD Extremities: no edema Gastrointestinal (Abdomen): normal bowel sounds, soft, nontender, no hepatosplenomegaly Psychiatric: A+Ox3, euthymic affect Results & Data Results & Data ([facility]) Vital Signs (Past 12 Hours) Vital Signs Temp Pulse Pulse Pulse Resp BP Pulse Ox 09/12/19 15:13 108 H 09/12/19 11:53 36.6 C 103 H 18 123/76 94 09/12/19 11:04 89 20 98 09/12/19 08:00 75 09/12/19 07:40 36.5 C 72 20 107/62 97 09/12/19 07:28 78 20 97 PG Care Time/CCT Total # of Minutes Spent Total Time Spent with Patient: Total time spent is greater than 50% in coordination of care (as documented) at patient's floor/unit and/or counseling patient: Coding Level of Care Code 59957 Initial Inpt Care Lvl 3 Diagnoses Interstitial lung disease J84.9 Bronchiectasis J47.9 Hypoxemia R09.02
[2019-09-12] MEDS ORDERED: ZOLEDRONIC ACID 4 MG in 0.9 % SODIUM CHLORIDE 100 ML IV ONE (16:00)
[2019-09-12] MEDS: SODIUM CHLORIDE 0.9% 1000ML 1,000 ML IV SCH (16:10)
[2019-09-12] MEDS: UMECLIDINIUM/VILANTEROL 62.5/25MCG 7 PUFFS/INHALER INH SCH (17:42)
[2019-09-12] MEDS: SODIUM CHLOR 7% 4 ML NEB NEB SCH (19:25)
[2019-09-12] MEDS: ATORVASTATIN 40 MG TAB PO SCH (20:07)
[2019-09-12] MEDS: ENOXAPARIN INJ 40 MG/0.4 ML SYR SQ SCH (20:39)
[2019-09-13] MEDS: SODIUM CHLORIDE 0.9% 1000ML 1,000 ML IV SCH ×2 (01:40→11:49)
[2019-09-13] MEDS: methylPREDNISolone 40 MG in SYRINGE 0 ML IV SCH ×3 (04:16→20:11)
[2019-09-13 06:38] LABS: Hematocrit (blood only) 36.9 % (42-52); Hemoglobin 12.4 g/dL (14.0-18.0); Mean Corpuscular Hemoglobin 32.2 pg (25-34); Mean Corpuscular Hgb Conc 33.6 g/dL (32-36); Mean Corpuscular Volume 95.8 fL (80-100); RDW Coefficient of Variation 14.3 % (11.5-14.5); RDW Standard Deviation 50.3 fL (36.4-46.3); Red Blood Count 3.85 M/uL (4.7-6.1)
[2019-09-13 06:50] LABS: Mean Platelet Volume 10.3 fL (7.4-10.4); Platelet Count 48 K/uL (130-400)
[2019-09-13] MEDS: ALBUT/IPRATROP 3MG/0.5MG NEB 3 ML VIAL NEB SCH ×4 (07:03→19:09)
[2019-09-13] MEDS: SODIUM CHLOR 7% 4 ML NEB NEB SCH ×2 (07:03→19:09)
[2019-09-13 07:18] LABS: BUN Creatinine Ratio 42.7 (10-20); Calcium 10.9 mg/dl (8.5-10.1); Creatinine Clr Calc Pharmacy 75.1 ml/min; Est GFR (African American) 97.3; Est GFR (Non-African American) 83.9; Potassium 4.5 mmol/L (3.5-5.1); Uric Acid 4.9 mg/dl (2.6-7.2)
[2019-09-13 07:34] LABS: Basophils # (auto) 0.02 K/uL (0-0.2); Basophils % (auto) 0.3 %; Dohle Bodies 1+; Eosinophils # (auto) 0.01 K/uL (0-0.5); Eosinophils % (auto) 0.1 %; Immature Granulocytes # (auto) 0.44 K/uL (0.00-0.02); Immature Granulocytes % (auto) 5.6 %; Lymphocytes # (auto) 2.59 K/uL (1.2-3.4); Lymphocytes % (auto) 33.2 %; Monocytes # (auto) 1.58 K/uL (0.11-0.59); Monocytes % (auto) 20.3 %; Neutrophils # (auto) 3.16 K/uL (1.4-6.5); Neutrophils % (auto) 40.5 %; Reticulocyte % 1.6 % (0.5-2.0); Reticulocytes # 0.06 10^6/uL (0.02-0.10); Spherocytes 1+
[2019-09-13] MEDS: carvediloL 3.125 MG TAB PO SCH ×2 (08:45→20:11)
[2019-09-13] MEDS: CLOPIDOGREL BISULFATE 75 MG TAB PO SCH (08:45)
[2019-09-13] MEDS: guaiFENesin 600 MG TABCR PO SCH ×2 (08:45→20:12)
[2019-09-13] MEDS: UMECLIDINIUM/VILANTEROL 62.5/25MCG 7 PUFFS/INHALER INH SCH (08:45)
[2019-09-13] MEDS: NYSTATIN SUSP 500,000 U/5 ML UDC PO SCH ×4 (08:45→20:11)
[2019-09-13] MEDS: TERAZOSIN HCL 5 MG CAP PO SCH (08:46)
[2019-09-13] MEDS: FENOFIBRATE NANOCRYSTALLIZED 145 MG TABLET PO SCH (08:46)
[2019-09-13] MEDS: MAGNESIUM OXIDE 400 MG TAB PO SCH (08:46)
[2019-09-13] MEDS: ASCORBIC ACID 500 MG TAB PO SCH (08:46)
[2019-09-13] MEDS: CITALOPRAM 20 MG TAB PO SCH (08:46)
[2019-09-13] MEDS: FOLIC ACID 1 MG TAB PO SCH (08:46)
[2019-09-13] MEDS: PANTOprazole 40 MG TAB PO SCH (08:46)
[2019-09-13] MEDS: FINASTERIDE 5 MG TAB PO SCH (08:46)
[2019-09-13] MEDS: FUROSEMIDE 20 MG TAB PO SCH (08:46)
[2019-09-13] MEDS: ASPIRIN 81 MG ECTAB PO SCH (08:46)
[2019-09-13] MEDS: SUCRALFATE 1 GM/10 ML UDC PO SCH ×4 (08:46→20:11)
[2019-09-13] MEDS: BENZONATATE 100 MG CAPSULE PO SCH ×3 (08:47→20:11)
[2019-09-13] MEDS: INSULIN ASPART 100 UNITS/ML 3 ML PEN SC SCH ×4 (08:47→20:23)
[2019-09-13] MEDS: INSULIN GLARGINE SOLOSTAR 100 UNITS/ML 3 ML PEN SC SCH ×2 (08:47→20:23)
--- NOTE | 2019-09-13 10:59 | Fluoroscopy Report ---
FL video swallow HISTORY: Suspected aspiration TECHNIQUE: Video fluoroscopic evaluation of swallowing was performed in the AP and lateral projection s by the speech pathology staff. The patient is fed nectar-thick and thin liquid barium, a barium coa galdino wafer, and barium pudding. FLUOROSCOPY TIME: 2.4 minutes. NUMBER OF FLUOROSCOPY IMAGES: 0 COMPARISON STUDY: None. FINDINGS: There is premature leakage. When swallowing thin liquids there was minor penetration but no evidence for daiana aspiration. There is no aspiration when swallowing nectar thick liquids putting o r a cracker with paste. IMPRESSION: 1. No aspiration identified. Penetration when swallowing thin liquids. Premature leakage. 2. Please see the speech pathologist report for detailed findings and recommendations. ACT 112: Negative or not required by law. Electronically signed by: Elijah Soria M.D. 09/13/2019 10:57 AM
--- NOTE | 2019-09-13 14:38 | Pulmonology Progress Note ---
Date of Service September 13, 2019 Assessment & Plan (1) Interstitial lung disease: Impression: 79-year-old male with history of interstitial lung disease, reportedly NSIP based on review of his outpatient pulmonology notes. He has significant interstitial changes on CT scan and PFTs demonstrated significant restriction. Does not appear the patient was a candidate for a surgical lung biopsy and I am unclear what serological evaluation has been conducted previously. 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 He was admitted with increasing shortness of breath and is now oxygen dependent. I do not have prior CT scans for comparison to [facility] whether or not there is been temporal progression of his interstitial lung disease. Recommendations: 1. ILD: Unclear etiology. The patient is on steroids currently as managed by hematology/oncology. I do not see that there is much additional to add for this patient at this point time. His chief complaint is cough. He is on Mucinex. We will add flutter valve and a trial of hypertonic saline to see if this offers him a clinical benefit. He was encouraged to remain ambulatory. Continue flutter valve and encourage cough 2. Bronchiectasis: Reviewed the patient sputum cultures. I think he is received appropriate antimicrobial therapy. In the absence of fevers, leukocytosis, or other constitutional symptoms would not recommend additional antibiotics at this point time. 3. The patient would benefit from pulmonary rehab in the outpatient setting. He will need to be clinically stable and this is deferred to his outpatient airport planner. 4. We will add Anoro to his regimen to see if this offers him a clinical benefit as well. 5. The patient appears to have pulmonary edema on exam and on imaging. We will hold IV fluids. Bicarb is close to 40. We will add Aceta Sulamyd 250 mg IV every 12 hours for least 2 doses. It seems that the patient's interstitial lung disease appears to be progressive and it is unclear that we are going to have a significant impact on improving his overall outcome. He will likely need to use more oxygen when he goes home. He will require close outpatient follow-up with his airport planner at [facility]. Thank you for including us in the care of this patient. We will continue to follow along with you. Please refer to Dr. Jiang's addendum for further recommendations and corrections (2) Bronchiectasis: (3) Hypoxemia: Admission and Anticipated Discharge Date Admission Date: September 06, 2019 Supervising Physician Co-Signing Physician Notes Patient seen and examined with Manav Adhikari PA-C. I agree with his assessment /plan except for any additions/exceptions noted: Patient with numerous occupational exposures in his life. He likely has some form of ILD possibly fibrotic NSIP versus mixed connective tissue disorderILD with improving respiratory symptoms. He did have crackles however diffusely and he is getting continuous fluids for hypercalcemia. For the time being, we have stopped the fluids. I am also holding his Lasix as his bicarbonate is trending up towards 40. We are giving him Diamox for his alkalosis. He is currently being worked up for hypercalcemia and thrombocytopenia. From a pulmonary s tandpoint, his IV Solu-Medrol can be transitioned to p.o. prednisone. He should follow-up with his outpatient airport planner. Subjective Patient seen at bedside in bedside chair. He appeared comfortable at time my examination. However, walking from the bathroom back to the chair he was dyspneic. In discussion with nursing he desaturates very quickly with minimal activity. He does have a cough with some yellow to white sputum. There is no hemoptysis. He is having some difficulty with clearing sputum. He denies any fever or chills. He has no chest pain or tightness. He denies headache. He does admit to some aspiration with eating and drinking. He is scheduled for a video swallow study today. Pulmonary function testing was completed in October 2018 and shows moderate restrictive disease. Diffusion capacity was severely decreased. Patient does require nocturnal supplemental oxygen. Review of Systems Review of Systems: All systems reviewed & are unremarkable except as noted in HPI & below Physical Exam Physical Exam: GENERAL : No acute distress at rest. EYES: No icterus, gaze conjugate NOSE: No evidence of epistaxis MOUTH: No lesions or candidiasis. Mucosa is moist NECK: Supple. No stridor LUNGS: Diffuse rhonchi. No appreciation of bronchospasm HEART: Regular, rate controlled ABDOMEN: Soft, NT, ND, BS Present EXTREMITIES: No LE edema, pedal pulses intact NEURO: A&OX3 Results & Data Results & Data ([facility]) Vital Signs (Past 12 Hours) Vital Signs Temp Pulse Pulse Pulse Resp BP Pulse Ox 09/13/19 11:38 36.7 C 86 22 104/57 L 96 09/13/19 11:11 85 20 95 09/13/19 07:47 36.7 C 89 22 101/84 90 09/13/19 07:05 84 20 95 09/13/19 03:14 36.7 C 84 20 105/59 L Laboratory Results 09/13/19 06:15 09/13/19 06:15 Diagnostic Findings No imaging since September 09, 2019 PG Care Time/CCT Total # of Minutes Spent Total Time Spent with Patient: Total time spent is greater than 50% in coordination of care (as documented) at patient's floor/unit and/or counseling patient: 30 minutes including discussion with primary team, nursing staff and other providers. Coding Level of Care Code 81067 Subseq Hosp Care Lvl 3 Diagnoses Interstitial lung disease J84.9 Bronchiectasis J47.9 Hypoxemia R09.02
[2019-09-13] MEDS: acetaZOLAMIDE 250 MG in DEXTROSE 5% 100 ML IV SCH (15:09)
[2019-09-13] MEDS ORDERED: FUROSEMIDE 40 MG in SYRINGE 0 ML IV ONE (16:01)
--- NOTE | 2019-09-13 16:51 | Hospitalist Progress Note ---
Date of Service September 13, 2019 Assessment & Plan (1) Thrombocytopenia: drop in platelets is acute, as platelets were normal at admission. the drop in platelets parallels the rapid rise in calcium. also has blasts on differential over the last 2 days. HIT theoretically possible, Lovenox stopped, plts still dropping at 48 could be due to Rocephin which has been completed, expect to see a rise in plts soon DIC w/u negative (normal PT, PTT, fibrinogen) peripheral smear without smudge cells, just some abnormal PMNs, can be seen in several conditions thus TTP unlikely check CBC, bilirubin, haptoglobin, LDH in the morning continue to speak with Dr. Ariel Cash about lab results (2) Hypercalcemia: stable today at 10.9, corrected is 11.7 but that is based off albumin from 09/05, repeat tomorrow treated with Zometa 4mg IV x 1, IV fluids stop fluids today and give Diamox for diuresis PTH low, vitamin D low, PTH-related peptide to be sent, pending repeat BMP in the morning (3) Pneumonia: RML. CXR 09/08 with b/l infiltrates -- uncertain if b/l infiltrates are from infection vs ILD. completed full 7 day course of IV rocephin. completed 5 day course of zithromax. Blood cx's negative. COVID-19 negative. cont tessalon, mucinex, incentive maria ines, and flutter valve for pulmonary toilet. Sputum gram stain with moderate GNR but culture grew aspergillus - see below. formal consult placed to Dr Patel from pulmonary today because of refractory pulmonary symptoms and wheezing. he advised no further antibiotics. also feels aspergillus likely to be contamination. 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 Baseline NC O2 requirements 4-5 L. down to 4L today will diurese with Diamox BID on exam today he has rhonchi and rales (5) COPD exacerbation: no wheezing today -- leave steroids as is. cont PRN nebs q6h. pulm toilet. supportive care. 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 cx likely contamination Dr Patel feels likely to be contaminant sent aspergillus titers as well as beta 1,3 D-glucan and aspergillus IgE just to be complete, follow up results (8) Diabetes mellitus type 2, uncontrolled: control adequate with lantus/novolog adjust as needed (9) 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 at home for such H/H stable for days, no hemolysis on peripheral smear prednisone on hold as patient on IV steroids sent out haptoglobin, LDH is high at 6400, check bilirubin in the morning, retic is 0.06 so it is not elevated (10) CAD (coronary artery disease): no evidence of ischemia cont asa, coreg, plavix, lasix, MICH he is statin intolerant (11) Chronic systolic CHF (congestive heart failure): EF 45-50% remains compensated cont BB cont MICH cont lasix 20mg daily will give Diamox 250 BID today (12) CLL (chronic lymphocytic leukemia): noted follows with heme/onc, [facility] daily CBC concomitant autoimmune hemolytic anemia speak with Dr. Cash daily (13) BPH (benign prostatic hyperplasia): cont finasteride cont terazosin (14) GERD without esophagitis: cont PPI (15) Hyperlipidemia: statin intolerant (16) HTN (hypertension): cont home meds controlled (17) History of stroke: cont asa and plavix for secondary prevention despite dropping platelets leave for now but if platelets drop to <50 may need to hold these meds check CBC in the morning (18) Dysphagia: candidiasis?? added nystatin 5cc ac/hs swish/swallow speech consult appreciated video swallow this week change diet to minced/moist (19) DVT prophylaxis: lovenox 40mg daily - hold starting in am cont PT/OT total time today is 65 minutes, speaking with two different consultants, reviewing chart, examining patient Admission and Anticipated Discharge Date Admission Date: September 06, 2019 Subjective patient sitting up in his chair, breathing well, no distress at all appreciate pulmonary note, spoke with Manav Adhikari and Dr. Jiang will use Diamox for diuresis on exam he clearly has rhonchi and rales reviewed chart, discussed with Dr. Hathaway on sign out reviewed labs, platelets down a little further at 48 from 64, LDH high at 6400 Hb is stable, no real drop at all Cr is stable, Ca is down slightly at 10.9, corrected it is > 11 patient wants to know when he can go home, told him that I would want platelets improving, Ca stable spoke with Dr. Ariel Cash over the phone, his federal district clerk will repeat labs tomorrow, working diagnosis for the thrombocytopenia is antibiotics, specifically Rocephin Review of Systems Review of Systems: All systems reviewed & are unremarkable except as noted in Subjective Constitutional: + fatigue and + weakness; no fever Respiratory: + dyspnea on exertion; no cough Cardiovascular: no chest pain and no edema Gastrointestinal: no abdominal pain, no nausea, no vomiting, no constipation and no diarrhea/loose stools Physical Exam Constitutional: well developed, well nourished and + frail appearing; no acute distress Eyes: PERRL, conjunctivae normal, anicteric sclerae ENMT: external ear and nose normal, oropharynx normal Neck: trachea midline, no thyromegaly Respiratory: normal respiratory effort; no respiratory distress Auscultation: + rales and + rhonchi; no wheezes Cardiovascular: RRR, no murmur, no edema Gastrointestinal (Abdomen): normal bowel sounds, soft, nontender, no hepatosplenomegaly Musculoskeletal: no cyanosis or clubbing, extremities motor strength 5/5 Skin: no rashes, warm and dry Neurologic: patellar DTR's 2+ bilat, sensation intact and PERRL, EOMI, accommodation nl, no face palsy, no dysarthria Psychiatric: A+Ox3, euthymic affect Lymphatic: no cervical or axillary lymphadenopathy Results & Data Results & Data ([facility]) Vital Signs (Past 12 Hours) Vital Signs Temp Pulse Pulse Pulse Resp BP Pulse Ox 09/13/19 15:52 36.6 C 101 H 20 123/68 93 09/13/19 15:26 86 22 97 09/13/19 11:38 36.7 C 86 22 104/57 L 96 09/13/19 11:11 85 20 95 09/13/19 07:47 36.7 C 89 22 101/84 90 09/13/19 07:05 84 20 95 Laboratory Results Laboratory Results - last 24 hr 09/11/19 09/12/19 09/12/19 05:54 16:26 20:29 WBC RBC Hgb Hct MCV MCH MCHC RDW Std Deviation RDW Coeff of Ra Plt Count MPV Immature Gran % (Auto) Neut % (Auto) Lymph % (Auto) [place] % (Auto) Eos % (Auto) Baso % (Auto) Reticulocyte % (Auto) Neut # (Auto) Lymph # (Auto) [place] # (Auto) Eos # (Auto) Baso # (Auto) Reticulocyte # Immature Gran # (Auto) Blood Smear Review Dohle Bodies Spherocytes Sodium Potassium Chloride Carbon Dioxide Anion Gap BUN Creatinine Est Cr Clr Drug Dosing Est GFR ( Amer) Est GFR (Non-Af Amer) BUN/Creatinine Ratio Glucose POC Glucose 148 H 250 H Uric Acid Calcium Lactate Dehydrogenase PTH Related Protein A.fumigatus Allerg IgE A. fumigatus [facility] Class 09/13/19 09/13/19 09/13/19 06:15 06:15 06:15 WBC 7.80 RBC 3.85 L Hgb 12.4 L Hct 36.9 L MCV 95.8 MCH 32.2 MCHC 33.6 RDW Std Deviation 50.3 H RDW Coeff of Ra 14.3 Plt Count 48 L MPV 10.3 Immature Gran % (Auto) 5.6 Neut % (Auto) 40.5 Lymph % (Auto) 33.2 [place] % (Auto) 20.3 Eos % (Auto) 0.1 Baso % (Auto) 0.3 Reticulocyte % (Auto) 1.6 Neut # (Auto) 3.16 Lymph # (Auto) 2.59 [place] # (Auto) 1.58 H Eos # (Auto) 0.01 Baso # (Auto) 0.02 Reticulocyte # 0.06 Immature Gran # (Auto) 0.44 H Blood Smear Review Dohle Bodies 1+ Spherocytes 1+ Sodium 139 Potassium 4.5 Chloride 98 Carbon Dioxide 38 H Anion Gap 3.0 BUN 35 H Creatinine 0.81 Est Cr Clr Drug Dosing 75.1 Est GFR ( Amer) 97.3 Est GFR (Non-Af Amer) 83.9 BUN/Creatinine Ratio 42.7 H Glucose 98 POC Glucose Uric Acid 4.9 Calcium 10.9 H Lactate Dehydrogenase 6490 H PTH Related Protein A.fumigatus Allerg IgE A. fumigatus ASM Class 09/13/19 09/13/19 09/13/19 06:15 07:23 11:19 WBC RBC Hgb Hct MCV MCH MCHC RDW Std Deviation RDW Coeff of Ra Plt Count MPV Immature Gran % (Auto) Neut % (Auto) Lymph % (Auto) [place] % (Auto) Eos % (Auto) Baso % (Auto) Reticulocyte % (Auto) Neut # (Auto) Lymph # (Auto) [place] # (Auto) Eos # (Auto) Baso # (Auto) Reticulocyte # Immature Gran # (Auto) Blood Smear Review Dohle Bodies Spherocytes Sodium Potassium Chloride Carbon Dioxide Anion Gap BUN Creatinine Est Cr Clr Drug Dosing Est GFR ( Amer) Est GFR (Non-Af Amer) BUN/Creatinine Ratio Glucose POC Glucose 117 H 180 H Uric Acid Calcium Lactate Dehydrogenase PTH Related Protein Pending A.fumigatus Allerg IgE Pending A. fumigatus ASM Class Pending 09/13/19 09/13/19 16:26 20:20 WBC RBC Hgb Hct MCV MCH MCHC RDW Std Deviation RDW Coeff of Ra Plt Count MPV Immature Gran % (Auto) Neut % (Auto) Lymph % (Auto) [place] % (Auto) Eos % (Auto) Baso % (Auto) Reticulocyte % (Auto) Neut # (Auto) Lymph # (Auto) [place] # (Auto) Eos # (Auto) Baso # (Auto) Reticulocyte # Immature Gran # (Auto) Blood Smear Review Dohle Bodies Spherocytes Sodium Potassium Chloride Carbon Dioxide Anion Gap BUN Creatinine Est Cr Clr Drug Dosing Est GFR ( Amer) Est GFR (Non-Af Amer) BUN/Creatinine Ratio Glucose POC Glucose 212 H 185 H Uric Acid Calcium Lactate Dehydrogenase PTH Related Protein A.fumigatus Allerg IgE A. fumigatus ASM Class Medications Administered Current Inpatient Medications Acetaminophen (Tylenol) 650 mg PO Q4H PRN PRN Reason: Pain or Fever Stop: 10/06/19 22:03 Albuterol (Duoneb) 3 ml NEB QIDR [facility] Stop: 10/07/19 06:59 Last Admin: 09/13/19 19:09 Dose: 3 ml Documented by: Alprazolam (Xanax) 0.25 mg PO BID PRN PRN Reason: anxiety Stop: 10/06/19 22:03 Ascorbic Acid (Vitamin C) 500 mg PO DAILY [facility] Stop: 10/07/19 08:59 Last Admin: 09/13/19 08:46 Dose: 500 mg Documented by: Aspirin (Ecotrin Ectab) 81 mg PO DAILY [facility] Stop: 10/07/19 08:59 Last Admin: 09/13/19 08:46 Dose: 81 mg Documented by: Atorvastatin Calcium (Lipitor) 40 mg PO HS [facility] Stop: 10/06/19 22:03 Last Admin: 09/13/19 20:11 Dose: 40 mg Documented by: Benzonatate (Tessalon Perle) 100 mg PO TID [facility] Stop: 10/07/19 13:59 Last Admin: 09/13/19 20:11 Dose: 100 mg Documented by: Carvedilol (Coreg) 3.125 mg PO BID [facility] Stop: 10/06/19 22:03 Last Admin: 09/13/19 20:11 Dose: 3.125 mg Documented by: Citalopram Hydrobromide (Celexa) 20 mg PO DAILY [facility] Stop: 10/07/19 08:59 Last Admin: 09/13/19 08:46 Dose: 20 mg Documented by: Clopidogrel Bisulfate (Plavix) 75 mg PO DAILY [facility] Stop: 10/07/19 08:59 Last Admin: 09/13/19 08:45 Dose: 75 mg Documented by: Dextrose (Dextrose 50%) 25 - 50 ml IV UD PRN; Protocol PRN Reason: Hypoglycemia Protocol Stop: 10/06/19 22:03 Enoxaparin Sodium (Lovenox) 40 mg SQ Q24H [facility] Stop: 10/06/19 21:59 Last Admin: 09/12/19 20:39 Dose: 40 mg Documented by: Fenofibrate (Tricor) 145 mg PO DAILY [facility] Stop: 10/07/19 08:59 Last Admin: 09/13/19 08:46 Dose: 145 mg Documented by: Finasteride (Proscar) 5 mg PO DAILY [facility] Stop: 10/07/19 08:59 Last Admin: 09/13/19 08:46 Dose: 5 mg Documented by: Folic Acid (Folvite) 1 mg PO DAILY [facility] Stop: 10/07/19 08:59 Last Admin: 09/13/19 08:46 Dose: 1 mg Documented by: Furosemide (Lasix) 20 mg PO DAILY [facility] Stop: 10/07/19 08:59 Last Admin: 09/13/19 08:46 Dose: 20 mg Documented by: Glucagon (Glucagen) 1 mg SQ UD PRN; Protocol PRN Reason: Hypoglycemia Protocol Stop: 10/06/19 22:03 Glucose (Dex4 Glucose) 4 - 8 tabs PO UD PRN; Protocol PRN Reason: Hypoglycemia Protocol Stop: 10/06/19 22:03 Glucose (Glucose 40%) 15 - 30 gm PO UD PRN; Protocol PRN Reason: Hypoglycemia Protocol Stop: 10/06/19 22:03 Guaifenesin (Mucinex) 1,200 mg PO Q12 [facility] Stop: 10/07/19 11:44 Last Admin: 09/13/19 20:12 Dose: 1,200 mg Documented by: Methylprednisolone 40 mg/ (Syringe) 0.64 mls @ 1.5 mls/min IV Q8H [facility] Stop: 10/09/19 19:59 Last Admin: 09/13/19 20:11 Dose: 1.5 mls/min Documented by: Acetazolamide 250 mg/ Dextrose 102.5 mls @ 100 mls/hr IV Q12H [facility] Stop: 10/13/19 14:59 Last Infusion: 09/13/19 16:11 Dose: Infused Documented by: Insulin Aspart (Novolog Flexpen) 0 units SC ACHS [facility] Stop: 10/06/19 22:03 Last Admin: 09/13/19 20:23 Dose: 2 units Documented by: Insulin Glargine (Lantus Solostar Pen) 25 units SC BID [facility] Stop: 10/12/19 08:59 Last Admin: 09/13/19 20:23 Dose: 25 units Documented by: Lisinopril (Zestril) 10 mg PO DAILY [facility] Stop: 10/07/19 08:59 Last Admin: 09/09/19 07:37 Dose: 10 mg Documented by: Magnesium Oxide (Mag-Ox) 400 mg PO DAILY [facility] Stop: 10/07/19 08:59 Last Admin: 09/13/19 08:46 Dose: 400 mg Documented by: Menthol (Nice) 1 darell BUCCAL PRN PRN PRN Reason: Cough Stop: 10/09/19 04:09 Miscellaneous (Carbohydrates For Hypoglycemia) 15 - 30 gm PO UD PRN PRN Reason: Hypoglycemia Protocol Stop: 10/06/19 22:03 Last Admin: 09/11/19 16:23 Dose: 15 gm Documented by: Nystatin (Mycostatin) 5 ml PO QID [facility] Stop: 09/21/19 20:59 Last Admin: 09/13/19 20:11 Dose: 5 ml Documented by: Pantoprazole Sodium (Protonix) 40 mg PO DAILY [facility] Stop: 10/07/19 08:59 Last Admin: 09/13/19 08:46 Dose: 40 mg Documented by: Prednisone (Prednisone) 20 mg PO DAILY [facility] Stop: 10/07/19 08:59 Last Admin: 09/07/19 08:16 Dose: 20 mg Documented by: Sodium Chloride (Sodium Chlor 7% Neb Solution) 4 ml NEB BIDR [facility] Stop: 10/12/19 18:59 Last Admin: 09/13/19 19:09 Dose: 4 ml Documented by: Sucralfate (Carafate) 1 gm PO QID [facility] Stop: 10/11/19 20:59 Last Admin: 09/13/19 20:11 Dose: 1 gm Documented by: Terazosin HCl (Hytrin) 5 mg PO DAILY [facility] Stop: 10/07/19 08:59 Last Admin: 09/13/19 08:46 Dose: 5 mg Documented by: Umeclidinium/Vilanterol (Anoro Ellipta 62.5/25 Mcg Inh) 1 puffs INH DAILY [facility] Stop: 10/12/19 16:14 Last Admin: 09/13/19 08:45 Dose: 1 puffs Documented by: PG Care Time/CCT Total # of Minutes Spent Total Time Spent: 65 Total Time Spent with Patient: Total time spent is greater than 50% in coordination of care (as documented) at patient's floor/unit and/or counseling patient: Prolonged Care Time Prolonged Care Time: Yes Total Prolonged Care Time: 35 Coding Level of Care Code 30808 Subseq Hosp Care Lvl 3 Diagnoses Thrombocytopenia D69.6 Hypercalcemia E83.52 Pneumonia J18.9 Laterality: right Lung location: middle lobe of lung Pneumonia type: due to unspecified organism Acute and chronic respiratory failure with hypoxia J96.21 COPD exacerbation J44.1 Interstitial lung disease J84.9 Infection due to fungus B49 Diabetes mellitus type 2, uncontrolled E11.65 Hemolytic anemia D59.1 Hemolytic anemia type: acquired, autoimmune, other CAD (coronary artery disease) I25.10 Associated angina: without angina Coronary Disease-Associated Artery/Lesion type: [place] artery [place] vs. transplanted heart: [place] heart Chronic systolic CHF (congestive heart failure) I50.22 CLL (chronic lymphocytic leukemia) C91.90 BPH (benign prostatic hyperplasia) N40.0 GERD without esophagitis K21.9 Hyperlipidemia E78.5 HTN (hypertension) I10 History of stroke Z86.73 Dysphagia R13.10 DVT prophylaxis Z29.9 Additional Codes Prolonged Care Time - Prolonged Care Time: Yes ([id number]) (1) Hemolytic anemia Hemolytic anemia type: acquired, autoimmune, other Qualified Code(s): D59.1 - Other autoimmune hemolytic anemias (2) CAD (coronary artery disease) Associated angina: without angina Coronary Disease-Associated Artery/Lesion type: [place] artery [place] vs. transplanted heart: [place] heart Qualified Code(s): I25.10 - Atherosclerotic heart disease of [place] coronary artery without angina pectoris (3) Pneumonia Laterality: right Lung location: middle lobe of lung Pneumonia type: due to unspecified organism Qualified Code(s): J18.9 - Pneumonia, unspecified organism
[2019-09-13] MEDS: ATORVASTATIN 40 MG TAB PO SCH (20:11)
[2019-09-14] MEDS: acetaZOLAMIDE 250 MG in DEXTROSE 5% 100 ML IV SCH ×2 (03:00→14:48)
[2019-09-14] MEDS: methylPREDNISolone 40 MG in SYRINGE 0 ML IV SCH ×2 (03:06→12:53)
[2019-09-14 05:55] LABS: Hematocrit (blood only) 36.4 % (42-52); Hemoglobin 12.2 g/dL (14.0-18.0); Mean Corpuscular Hemoglobin 31.8 pg (25-34); Mean Corpuscular Hgb Conc 33.5 g/dL (32-36); Mean Corpuscular Volume 94.8 fL (80-100); RDW Coefficient of Variation 14.3 % (11.5-14.5); RDW Standard Deviation 49.2 fL (36.4-46.3); Red Blood Count 3.84 M/uL (4.7-6.1); White Blood Count 7.61 K/uL (4.8-10.8)
[2019-09-14 06:07] LABS: Platelet Count 39 K/uL (130-400)
[2019-09-14 06:24] LABS: Albumin Level 2.8 gm/dl (3.4-5.0); BUN Creatinine Ratio 36.8 (10-20); Bilirubin Direct 0.3 mg/dl (0-0.2); Calcium 9.9 mg/dl (8.5-10.1); Creatinine Clr Calc Pharmacy 57.4 ml/min; Est GFR (African American) 76.4; Potassium 4.2 mmol/L (3.5-5.1)
[2019-09-14 06:27] LABS: Bilirubin,Total 1.2 mg/dl (0.2-1)
[2019-09-14 06:53] LABS: ALC (manual) 2.56 K/uL (1.2-3.4); ANC (manual) 3.48 K/uL (1.4-6.5); Blast # (manual) 0.13 K/uL (0-0); Blast Cells % (manual) 1.7 %; Dohle Bodies 2+; Lymphocytes # (manual) 2.56 K/uL (1.2-3.4); Lymphocytes % (manual) 33.6 %; Monocytes # (manual) 1.45 K/uL (0.11-0.59); Neutrophils # (manual) 3.48 K/uL (1.4-6.5); Neutrophils % (manual) 45.7 %; Smudge Cells Present
[2019-09-14] MEDS: ALBUT/IPRATROP 3MG/0.5MG NEB 3 ML VIAL NEB SCH ×4 (07:02→19:05)
--- NOTE | 2019-09-14 07:21 | XRay Report ---
XR chest 1V portable CLINICAL HISTORY: Hypoxia, fluid overload COMPARISON STUDY: 09/09/2019 FINDINGS: Mild cardiomegaly. Pulmonary vasculature is diminished in prominence from the prior study. Interstitial changes are also diminished. IMPRESSION: Moderate improvement compared to the prior study. Mild residual pulmonary vascular conge stion and mild cardiomegaly. ACT 112: Negative or not required by law. The above report was generated using voice recognition software. It may contain grammatical, syntax or spelling errors. Electronically signed by: Wiley Roberts M.D. 09/14/2019 7:19 AM
[2019-09-14] MEDS: INSULIN GLARGINE SOLOSTAR 100 UNITS/ML 3 ML PEN SC SCH ×2 (08:16→20:50)
[2019-09-14] MEDS: PANTOprazole 40 MG TAB PO SCH (08:20)
[2019-09-14] MEDS: CLOPIDOGREL BISULFATE 75 MG TAB PO SCH (08:20)
[2019-09-14] MEDS: UMECLIDINIUM/VILANTEROL 62.5/25MCG 7 PUFFS/INHALER INH SCH (08:20)
[2019-09-14] MEDS: NYSTATIN SUSP 500,000 U/5 ML UDC PO SCH ×4 (08:20→20:45)
[2019-09-14] MEDS: FOLIC ACID 1 MG TAB PO SCH (08:20)
[2019-09-14] MEDS: BENZONATATE 100 MG CAPSULE PO SCH ×3 (08:21→20:48)
[2019-09-14] MEDS: FUROSEMIDE 20 MG TAB PO SCH (08:21)
[2019-09-14] MEDS: carvediloL 3.125 MG TAB PO SCH ×2 (08:21→20:47)
[2019-09-14] MEDS: CITALOPRAM 20 MG TAB PO SCH (08:21)
[2019-09-14] MEDS: FINASTERIDE 5 MG TAB PO SCH (08:21)
[2019-09-14] MEDS: guaiFENesin 600 MG TABCR PO SCH ×2 (08:21→20:46)
[2019-09-14] MEDS: ASPIRIN 81 MG ECTAB PO SCH (08:21)
[2019-09-14] MEDS: TERAZOSIN HCL 5 MG CAP PO SCH (08:21)
[2019-09-14] MEDS: SUCRALFATE 1 GM/10 ML UDC PO SCH ×4 (08:21→20:45)
[2019-09-14] MEDS: FENOFIBRATE NANOCRYSTALLIZED 145 MG TABLET PO SCH (08:21)
[2019-09-14] MEDS: INSULIN ASPART 100 UNITS/ML 3 ML PEN SC SCH ×4 (09:01→20:48)
--- NOTE | 2019-09-14 10:23 | Medical Student Progress Note ---
Date of Service September 14, 2019 Assessment & Plan (1) Thrombocytopenia: Patient is an 79 y/o male with a complex PMHx admitted for cough, SOB, and hypoxia. His non-productive cough is still persistent and his platelet count is continuing to downtrend. Thrombocytopenia: - Acute drop in platelets, normal at admission. - 39 (09/13) from 48 (09/12) - Drop in platelets parallels the rapid rise in calcium. - +Blasts on CBC w/ diff on 09/12 (0.08), 09/13 (0.13) - +Smudge cells - consistent with his CLL - TBili: 1.2, DBili: 0.3, LDH: 5684, Haptoglobin: pending, Retics: 1.6 (09/12) - Etiologies: HIT, Rocephin, TTP - HIT: Lovenox stopped, platelets still dropping - Rocephin: completed 7d course, expect to see a rise in [place] soon - TTP: DIC workup negative with normal coags - Repeat CBC w/ diff in AM - Continue to speak with Dr. Ariel Cash about lab results Hypercalcemia: - Ca: 9.9 (down from 10.9 on 09/12), corrected to about 10.5 with Albumin: 2.8 (09/13) - Treated with Zoledronic acid 4mg IV x 1 - IV fluids stopped, given Diamox for diuresis - PTH: low, vitamin D: low, PTH-related peptide: pending - repeat CMP in the morning Pneumonia: - Present in L - CXR 09/08 with b/l infiltrates -- uncertain if b/l infiltrates are from infection vs ILD - Completed 7 day course of IV Rocephin and 5d Zithromax - (-) BCx - (-) COVID-19 - Sputum gram stain with moderate GNR but culture grew aspergillus - see below - Consulted Pulmonology: no further Abx, believes Aspergillus is a contaminant - Continue Tessalon, Mucinex, Incentive spirometry, and flutter valve for pulmonary toilet Acute and chronic respiratory failure with hypoxia: - Chronic hypoxic respiratory failure secondary to COPD and ILD - Home O2 requirement: 3 L - Baseline NC/Rebreather mask O2 requirements 4-5 L - Down to 4L today - Will continue with Diamox BID for diuresis - Diffuse rhonchi on exam COPD exacerbation: - No wheezing today -- leave steroids as is - No further Abx - Continue PRN nebs q6h. 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 Cx - Likely contamination - Aspergillus titers, beta 1,3 D-glucan, and aspergillus IgE: pending Diabetes mellitus type 2, uncontrolled: - Control adequate with lantus/novolog - Adjust as needed Hemolytic anemia: - AIHA: on prednisone at home - H/H stable for days - TBili: 1.2, DBili: 0.3, LDH: 5684, Haptoglobin: pending, Retics: 1.6 (09/12) - Prednisone on hold as patient on IV steroids - Continue conversations with [facility] Heme/Onc CAD (coronary artery disease): - No evidence of ischemia - Continue asa, coreg, plavix, lasix, MICH - Statin intolerant Chronic systolic CHF (congestive heart failure): - EF 45-50% - Remains compensated - Continue BB, MICH, Lasix 20mg daily - Diamox 250 BID today CLL (chronic lymphocytic leukemia): - Noted - Concomitant autoimmune hemolytic anemia - Follows with heme/onc, [facility] - Daily CBC - Speak with Dr. Cash daily BPH (benign prostatic hyperplasia): - Continue finasteride, terazosin GERD without esophagitis: - Continue PPI Hyperlipidemia: - Statin intolerant HTN (hypertension): - Well controlled - Continue home meds History of stroke: - Hold ASA and plavix due to platelet drop to 39 - Recheck CBC in AM - Continue once platelets rise Dysphagia: - No formal complaints today - Speech consult, video swallow: begin minced/moist diet - Continue Nystatin 5cc ac/hs swish/swallow FEN/GI: Minced/moist diet Dispo: PCU cont PT/OT Subjective Overall, patient says he's doing well. He's lying comfortably in bed and his largest complaint pertains to a persistent non-productive cough that did not disrupt his ability to sleep overnight. He complains about shortness of breath with exertion, but says that he's excited to walk the halls today with the nurses to see how he does with the supplemental O2. Patient also says that he's having a decrease in appetite, which he largely attributes to not enjoying the food and him not being able to salt it. He clears about 50% of his plate per meal. Patient is also urinating about every 15-30 minutes. Review of Systems Constitutional: no fever, no chills, no body aches and no fatigue Respiratory: + cough, + chest congestion and + dyspnea on exertion; no change in sputum, no hemoptysis and no wheezing Cardiovascular: no chest pain, no palpitations, no lightheadedness and no edema Gastrointestinal: no abdominal pain, no nausea, no vomiting and no dysphagia Genitourinary: + urinary frequency Physical Exam Constitutional: well developed (lying in bed), average body habitus and cooperative; no acute distress Respiratory: no respiratory distress Auscultation: + rhonchi (diffuse) Cardiovascular: RRR, no murmur, no edema Gastrointestinal (Abdomen): Inspection/Auscultation: abdomen normal to inspection Percussion/Palpation: abdomen soft; abdomen nontender Musculoskeletal: Head/Neck/Chest: normocephalic and head atraumatic Extremities: no cyanosis and no clubbing Psychiatric: A+Ox3, euthymic affect Results & Data ([facility]) Vital Signs (Past 12 Hours) Vital Signs Temp Pulse Pulse Resp BP Pulse Ox 09/14/19 07:24 36.5 C 83 18 97/64 L 96 09/14/19 07:04 89 20 94 09/14/19 03:09 36.5 C 75 22 101/63 97 09/13/19 23:29 36.7 C 90 20 126/59 L 90
[2019-09-14] MEDS: SODIUM CHLOR 7% 4 ML NEB NEB SCH ×2 (11:02→19:10)
--- NOTE | 2019-09-14 11:40 | Pulmonology Progress Note ---
Date of Service September 14, 2019 Assessment & Plan (1) Interstitial lung disease: Impression: 79-year-old male with history of interstitial lung disease, CLL and reportedly NSIP based on review of his outpatient pulmonology notes. Recommendations: 1. ILD: Unclear etiology. From a pulmonary standpoint, the patient may transition to p.o. prednisone. Maintain saturations 88 to 90%. Chest x-ray appears to have improved from a vascular congestion standpoint. 2. Bronchiectasis: Continue airway clearance therapy with flutter valve and nebulizer as needed. 3. The patient would benefit from pulmonary rehab in the outpatient setting. He will need to be clinically stable and this is deferred to his outpatient helicopter mechanic. 4. Continue Diamox for a total of 3 doses and recheck bicarbonate level tomorrow. It seems that the patient's interstitial lung disease appears to be progressive and it is unclear that we are going to have a significant impact on improving his overall outcome. He will likely need to use more oxygen when he goes home. He will require close outpatient follow-up with his helicopter mechanic at [facility]. At this point, we will follow the patient peripherally. (2) Bronchiectasis: (3) Hypoxemia: Admission and Anticipated Discharge Date Admission Date: September 06, 2019 Subjective Patient feels relatively unchanged from yesterday. Shortness of breath remains. Denies any chest pain or fevers. Review of Systems Review of Systems: All systems reviewed & are unremarkable except as noted in HPI & below Physical Exam Physical Exam: GENERAL : No acute distress at rest. EYES: No icterus, gaze conjugate NOSE: No evidence of epistaxis MOUTH: No lesions or candidiasis. Mucosa is moist NECK: Supple. No stridor LUNGS: Diffuse rhonchi. No appreciation of bronchospasm HEART: Regular, rate controlled ABDOMEN: Soft, NT, ND, BS Present EXTREMITIES: No LE edema, pedal pulses intact NEURO: A&OX3 Results & Data Results & Data ([facility]) Vital Signs (Past 12 Hours) Vital Signs Temp Pulse Pulse Resp BP Pulse Ox 09/14/19 11:05 100 H 20 98 09/14/19 08:00 78 09/14/19 07:24 97.7 F 83 18 97/64 L 96 09/14/19 07:04 89 20 94 09/14/19 03:09 97.7 F 75 22 101/63 97 PG Care Time/CCT Total # of Minutes Spent Total Time Spent with Patient: Total time spent is greater than 50% in coordination of care (as documented) at patient's floor/unit and/or counseling patient: Coding Level of Care Code 75713 Subseq Hosp Care Lvl 2 Diagnoses Interstitial lung disease J84.9 Bronchiectasis J47.9 Hypoxemia R09.02
[2019-09-14] MEDS: ASCORBIC ACID 500 MG TAB PO SCH (11:53)
[2019-09-14] MEDS: MAGNESIUM OXIDE 400 MG TAB PO SCH (11:53)
[2019-09-14] MEDS ORDERED: FUROSEMIDE 20 MG in SYRINGE 0 ML IV ONE (14:15)
[2019-09-14] MEDS: ATORVASTATIN 40 MG TAB PO SCH (20:46)
--- NOTE | 2019-09-14 21:22 | Hospitalist Progress Note ---
Date of Service September 14, 2019 Assessment & Plan (1) Thrombocytopenia: drop in platelets is acute, as platelets were normal at admission. the drop in platelets parallels the rapid rise in calcium. also has blasts on differential over the last 4 days. HIT theoretically possible, Lovenox stopped, plts still dropping at 39 could be due to Rocephin which has been completed, expect to see a rise in plts soon DIC w/u negative (normal PT, PTT, fibrinogen) peripheral smear without smudge cells, just some abnormal PMNs, can be seen in several conditions thus TTP unlikely with his history of CLL, could be changing to MDS, Dr. Cash would like to get a bone marrow biopsy this week will try to arrange in his office check CBC with diff in the morning, call Dr. Cash with results (2) Hypercalcemia: down to 9.9 today, corrected for albumin it is 11.3 treated with Zometa 4mg IV x 1, IV fluids (which are now stopped) give extra dose of Lasix today, 20mg IV, in addition to Diamox PTH low, vitamin D low, PTH-related peptide to be sent, pending repeat BMP in the morning (3) Pneumonia: RML. CXR 09/08 with b/l infiltrates -- uncertain if b/l infiltrates are from infection vs ILD. completed full 7 day course of IV rocephin. completed 5 day course of zithromax. Blood cx's negative. COVID-19 negative. cont tessalon, mucinex, incentive maria ines, and flutter valve for pulmonary toilet. Sputum gram stain with moderate GNR but culture grew aspergillus - see below. formal consult placed to Dr Patel from pulmonary because of refractory pulmonary symptoms and wheezing. he advised no further antibiotics. also feels aspergillus likely to be contamination recommend diuresis he is stable on 4L via mask which is what he uses at home (4) Acute and chronic respiratory failure with hypoxia: 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 Baseline NC O2 requirements 4-5 L. down to 4L today will diurese with Diamox BID, add a dose of Lasix 20mg IV today to help remove calcium on exam today he has rhonchi and rales (5) COPD exacerbation: Prednisone 20mg daily resumed tomorrow, stop Solu Medrol no wheezing today cont PRN nebs q6h. pulm toilet. supportive care. 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: aspergillus seen on sputum cx likely contamination Dr Patel feels likely to be contaminant sent aspergillus titers as well as beta 1,3 D-glucan and aspergillus IgE just to be complete, follow up results (8) Diabetes mellitus type 2, uncontrolled: control adequate with lantus/novolog adjust as needed (9) 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 at home for such H/H stable for days, no hemolysis on peripheral smear prednisone on hold as patient on IV steroids sent out haptoglobin (pending), LDH is high at 5600 but coming down, bili is up slightly at 1.5 (10) CAD (coronary artery disease): no evidence of ischemia cont asa, coreg, plavix, lasix, MICH he is statin intolerant (11) Chronic systolic CHF (congestive heart failure): EF 45-50% remains compensated cont BB cont MICH cont lasix 20mg daily, give extra 20mg IV today will give Diamox 250 BID today (12) CLL (chronic lymphocytic leukemia): noted follows with heme/onc, [facility] daily CBC concomitant autoimmune hemolytic anemia speak with Dr. Cash daily, will need bone marrow biopsy this week (13) BPH (benign prostatic hyperplasia): cont finasteride cont terazosin (14) GERD without esophagitis: cont PPI (15) Hyperlipidemia: statin intolerant (16) HTN (hypertension): cont home meds controlled (17) History of stroke: cont asa and plavix for secondary prevention check CBC in the morning (18) Dysphagia: candidiasis?? added nystatin 5cc ac/hs swish/swallow speech consult appreciated video swallow this week change diet to minced/moist (19) DVT prophylaxis: lovenox 40mg daily - on hold for two days cont PT/OT Admission and Anticipated Discharge Date Admission Date: September 06, 2019 Subjective patient not eating as well today he says his breathing is stable, he has a cough, no sputum production his family says his voice is a little more hoarse today reviewed labs, WBC is stable, Hb is stable at 12.2, plts down further to 39 LDH down to 5600 from 6400 haptoglobin is pending, bilirubin up slightly at 1.5, albumin is low calcium is coming down today to < [address] Cash over the phone, he wants to perform a bone marrow biopsy this week in the office to determine what is going on his daughter reports that he required chemotherapy earlier this year when his platelets dropped Review of Systems Review of Systems: All systems reviewed & are unremarkable except as noted in Subjective Constitutional: + fatigue and + weakness; no fever Respiratory: + cough and + dyspnea on exertion; no dyspnea and no wheezing Cardiovascular: no chest pain and no edema Gastrointestinal: no abdominal pain, no nausea, no vomiting, no constipation and no diarrhea/loose stools Physical Exam Constitutional: well developed, well nourished and + frail appearing; no acute distress Eyes: PERRL, conjunctivae normal, anicteric sclerae ENMT: external ear and nose normal, oropharynx normal Neck: trachea midline, no thyromegaly Respiratory: normal respiratory effort; no respiratory distress Auscultation: + rales and + rhonchi; no wheezes Cardiovascular: RRR, no murmur, no edema Gastrointestinal (Abdomen): normal bowel sounds, soft, nontender, no hepatosplenomegaly Musculoskeletal: no cyanosis or clubbing, extremities motor strength 5/5 Skin: no rashes, warm and dry Neurologic: patellar DTR's 2+ bilat, sensation intact and PERRL, EOMI, accommodation nl, no face palsy, no dysarthria Psychiatric: A+Ox3, euthymic affect Lymphatic: no cervical or axillary lymphadenopathy Results & Data Results & Data ([facility]) Vital Signs (Past 12 Hours) Vital Signs Temp Pulse Pulse Resp BP Pulse Ox 09/14/19 20:00 36.8 C 85 20 107/63 96 09/14/19 19:05 86 18 95 09/14/19 16:35 77 09/14/19 15:16 36.7 C 85 20 116/76 95 09/14/19 15:00 78 16 97 09/14/19 12:10 36.5 C 85 18 103/65 97 09/14/19 11:05 100 H 20 98 Laboratory Results Laboratory Results - last 24 hr 09/14/19 09/14/19 09/14/19 05:38 05:38 05:38 WBC 7.61 RBC 3.84 L Hgb 12.2 L Hct 36.4 L MCV 94.8 MCH 31.8 MCHC 33.5 RDW Std Deviation 49.2 H RDW Coeff of Ra 14.3 Plt Count 39 L MPV 10.0 Neutrophils % (Manual) 45.7 Lymphocytes % (Manual) 33.6 Monocytes % (Manual) 19.0 Blast Cells % (Manual) 1.7 Neutrophils # (Manual) 3.48 Total Absolute Neuts 3.48 Lymphocytes # (Manual) 2.56 Total Abs Lymphocytes 2.56 Monocytes # (Manual) 1.45 H Blast Cells # (Man) 0.13 H Smudge Cells Present Dohle Bodies 2+ Haptoglobin Sodium 139 Potassium 4.2 Chloride 100 Carbon Dioxide 35 H Anion Gap 4.0 BUN 39 H Creatinine 1.06 Est Cr Clr Drug Dosing 57.4 Est GFR ( Amer) 76.4 Est GFR (Non-Af Amer) 66.0 BUN/Creatinine Ratio 36.8 H Glucose 143 H POC Glucose Calcium 9.9 Total Bilirubin 1.2 H Direct Bilirubin 0.3 H AST 76 H ALT 20 Alkaline Phosphatase 50 Lactate Dehydrogenase 5684 H Total Protein 6.0 L Albumin 2.8 L 09/14/19 09/14/19 09/14/19 05:38 07:30 11:39 WBC RBC Hgb Hct MCV MCH MCHC RDW Std Deviation RDW Coeff of Ra Plt Count MPV Neutrophils % (Manual) Lymphocytes % (Manual) Monocytes % (Manual) Blast Cells % (Manual) Neutrophils # (Manual) Total Absolute Neuts Lymphocytes # (Manual) Total Abs Lymphocytes Monocytes # (Manual) Blast Cells # (Man) Smudge Cells Dohle Bodies Haptoglobin Pending Sodium Potassium Chloride Carbon Dioxide Anion Gap BUN Creatinine Est Cr Clr Drug Dosing Est GFR ( Amer) Est GFR (Non-Af Amer) BUN/Creatinine Ratio Glucose POC Glucose 152 H 171 H Calcium Total Bilirubin Direct Bilirubin AST ALT Alkaline Phosphatase Lactate Dehydrogenase Total Protein Albumin 09/14/19 09/14/19 16:37 20:27 WBC RBC Hgb Hct MCV MCH MCHC RDW Std Deviation RDW Coeff of Ra Plt Count MPV Neutrophils % (Manual) Lymphocytes % (Manual) Monocytes % (Manual) Blast Cells % (Manual) Neutrophils # (Manual) Total Absolute Neuts Lymphocytes # (Manual) Total Abs Lymphocytes Monocytes # (Manual) Blast Cells # (Man) Smudge Cells Dohle Bodies Haptoglobin Sodium Potassium Chloride Carbon Dioxide Anion Gap BUN Creatinine Est Cr Clr Drug Dosing Est GFR ( Amer) Est GFR (Non-Af Amer) BUN/Creatinine Ratio Glucose POC Glucose 185 H 170 H Calcium Total Bilirubin Direct Bilirubin AST ALT Alkaline Phosphatase Lactate Dehydrogenase Total Protein Albumin Medications Administered Current Inpatient Medications Acetaminophen (Tylenol) 650 mg PO Q4H PRN PRN Reason: Pain or Fever Stop: 10/06/19 22:03 Albuterol (Duoneb) 3 ml NEB QIDR GEMA Stop: 10/07/19 06:59 Last Admin: 09/14/19 19:05 Dose: 3 ml Documented by: Alprazolam (Xanax) 0.25 mg PO BID PRN PRN Reason: anxiety Stop: 10/06/19 22:03 Ascorbic Acid (Vitamin C) 500 mg PO DAILY GEMA Stop: 10/07/19 08:59 Last Admin: 09/14/19 11:53 Dose: 500 mg Documented by: Aspirin (Ecotrin Ectab) 81 mg PO DAILY GEMA Stop: 10/07/19 08:59 Last Admin: 09/14/19 08:21 Dose: 81 mg Documented by: Atorvastatin Calcium (Lipitor) 40 mg PO HS [facility] Stop: 10/06/19 22:03 Last Admin: 09/14/19 20:46 Dose: 40 mg Documented by: Benzonatate (Tessalon Perle) 100 mg PO TID GEMA Stop: 10/07/19 13:59 Last Admin: 09/14/19 20:48 Dose: 100 mg Documented by: Carvedilol (Coreg) 3.125 mg PO BID GEMA Stop: 10/06/19 22:03 Last Admin: 09/14/19 20:47 Dose: 3.125 mg Documented by: Citalopram Hydrobromide (Celexa) 20 mg PO DAILY GEMA Stop: 10/07/19 08:59 Last Admin: 09/14/19 08:21 Dose: 20 mg Documented by: Clopidogrel Bisulfate (Plavix) 75 mg PO DAILY GEMA Stop: 10/07/19 08:59 Last Admin: 09/14/19 08:20 Dose: 75 mg Documented by: Dextrose (Dextrose 50%) 25 - 50 ml IV UD PRN; Protocol PRN Reason: Hypoglycemia Protocol Stop: 10/06/19 22:03 Enoxaparin Sodium (Lovenox) 40 mg SQ Q24H GEMA Stop: 10/06/19 21:59 Last Admin: 09/12/19 20:39 Dose: 40 mg Documented by: Fenofibrate (Tricor) 145 mg PO DAILY GEMA Stop: 10/07/19 08:59 Last Admin: 09/14/19 08:21 Dose: 145 mg Documented by: Finasteride (Proscar) 5 mg PO DAILY GEMA Stop: 10/07/19 08:59 Last Admin: 09/14/19 08:21 Dose: 5 mg Documented by: Folic Acid (Folvite) 1 mg PO DAILY GEMA Stop: 10/07/19 08:59 Last Admin: 09/14/19 08:20 Dose: 1 mg Documented by: Furosemide (Lasix) 20 mg PO DAILY GEMA Stop: 10/07/19 08:59 Last Admin: 09/14/19 08:21 Dose: 20 mg Documented by: Glucagon (Glucagen) 1 mg SQ UD PRN; Protocol PRN Reason: Hypoglycemia Protocol Stop: 10/06/19 22:03 Glucose (Dex4 Glucose) 4 - 8 tabs PO UD PRN; Protocol PRN Reason: Hypoglycemia Protocol Stop: 10/06/19 22:03 Glucose (Glucose 40%) 15 - 30 gm PO UD PRN; Protocol PRN Reason: Hypoglycemia Protocol Stop: 10/06/19 22:03 Guaifenesin (Mucinex) 1,200 mg PO Q12 GEMA Stop: 10/07/19 11:44 Last Admin: 09/14/19 20:46 Dose: 1,200 mg Documented by: Insulin Aspart (Novolog Flexpen) 0 units SC ACHS GEMA Stop: 10/06/19 22:03 Last Admin: 09/14/19 20:48 Dose: 1 units Documented by: Insulin Glargine (Lantus Solostar Pen) 25 units SC BID GEMA Stop: 10/12/19 08:59 Last Admin: 09/14/19 20:50 Dose: 25 units Documented by: Lisinopril (Zestril) 10 mg PO DAILY GEMA Stop: 10/07/19 08:59 Last Admin: 09/09/19 07:37 Dose: 10 mg Documented by: Magnesium Oxide (Mag-Ox) 400 mg PO DAILY [facility] Stop: 10/07/19 08:59 Last Admin: 09/14/19 11:53 Dose: 400 mg Documented by: Menthol (Nice) 1 darell BUCCAL PRN PRN PRN Reason: Cough Stop: 10/09/19 04:09 Miscellaneous (Carbohydrates For Hypoglycemia) 15 - 30 gm PO UD PRN PRN Reason: Hypoglycemia Protocol Stop: 10/06/19 22:03 Last Admin: 09/11/19 16:23 Dose: 15 gm Documented by: Nystatin (Mycostatin) 5 ml PO QID [facility] Stop: 09/21/19 20:59 Last Admin: 09/14/19 20:45 Dose: 5 ml Documented by: Pantoprazole Sodium (Protonix) 40 mg PO DAILY [facility] Stop: 10/07/19 08:59 Last Admin: 09/14/19 08:20 Dose: 40 mg Documented by: Prednisone (Prednisone) 20 mg PO DAILY [facility] Stop: 10/07/19 08:59 Last Admin: 09/07/19 08:16 Dose: 20 mg Documented by: Sodium Chloride (Sodium Chlor 7% Neb Solution) 4 ml NEB BIDR [facility] Stop: 10/12/19 18:59 Last Admin: 09/14/19 11:02 Dose: Not Given Documented by: Sucralfate (Carafate) 1 gm PO QID [facility] Stop: 10/11/19 20:59 Last Admin: 09/14/19 20:45 Dose: 1 gm Documented by: Terazosin HCl (Hytrin) 5 mg PO DAILY [facility] Stop: 10/07/19 08:59 Last Admin: 09/14/19 08:21 Dose: 5 mg Documented by: Umeclidinium/Vilanterol (Anoro Ellipta 62.5/25 Mcg Inh) 1 puffs INH DAILY [facility] Stop: 10/12/19 16:14 Last Admin: 09/14/19 08:20 Dose: 1 puffs Documented by: PG Care Time/CCT Total # of Minutes Spent Total Time Spent: 45 Total Time Spent with Patient: Total time spent is greater than 50% in coordination of care (as documented) at patient's floor/unit and/or counseling patient: Coding Level of Care Code 22502 Subseq Hosp Care Lvl 3 Diagnoses Thrombocytopenia D69.6 Hypercalcemia E83.52 Pneumonia J18.9 Laterality: right Lung location: middle lobe of lung Pneumonia type: due to unspecified organism Acute and chronic respiratory failure with hypoxia J96.21 COPD exacerbation J44.1 Interstitial lung disease J84.9 Infection due to fungus B49 Diabetes mellitus type 2, uncontrolled E11.65 Hemolytic anemia D59.1 Hemolytic anemia type: acquired, autoimmune, other CAD (coronary artery disease) I25.10 Coronary Disease-Associated Artery/Lesion type: [place] artery [place] vs. transplanted heart: [place] heart Associated angina: without angina Chronic systolic CHF (congestive heart failure) I50.22 CLL (chronic lymphocytic leukemia) C91.90 BPH (benign prostatic hyperplasia) N40.0 GERD without esophagitis K21.9 Hyperlipidemia E78.5 HTN (hypertension) I10 History of stroke Z86.73 Dysphagia R13.10 DVT prophylaxis Z29.9 (1) Pneumonia Laterality: right Lung location: middle lobe of lung Pneumonia type: due to unspecified organism Qualified Code(s): J18.9 - Pneumonia, unspecified organism (2) Hemolytic anemia Hemolytic anemia type: acquired, autoimmune, other Qualified Code(s): D59.1 - Other autoimmune hemolytic anemias (3) CAD (coronary artery disease) Coronary Disease-Associated Artery/Lesion type: [place] artery [place] vs. transplanted heart: [place] heart Associated angina: without angina Qualified Code(s): I25.10 - Atherosclerotic heart disease of [place] coronary artery without angina pectoris
[2019-09-15] MEDS: ALBUT/IPRATROP 3MG/0.5MG NEB 3 ML VIAL NEB SCH ×4 (07:13→19:18)
[2019-09-15] MEDS: SODIUM CHLOR 7% 4 ML NEB NEB SCH ×2 (07:13→19:21)
[2019-09-15 07:21] LABS: Hematocrit (blood only) 38.8 % (42-52); Hemoglobin 13.1 g/dL (14.0-18.0); Mean Corpuscular Hemoglobin 32.3 pg (25-34); Mean Corpuscular Hgb Conc 33.8 g/dL (32-36); Mean Corpuscular Volume 95.6 fL (80-100); RDW Coefficient of Variation 14.5 % (11.5-14.5); RDW Standard Deviation 51.2 fL (36.4-46.3); Red Blood Count 4.06 M/uL (4.7-6.1); White Blood Count 9.33 K/uL (4.8-10.8)
[2019-09-15 07:25] LABS: Mean Platelet Volume 10.7 fL (7.4-10.4); Platelet Count 48 K/uL (130-400)
[2019-09-15 07:41] LABS: BUN Creatinine Ratio 41.5 (10-20); Calcium 9.8 mg/dl (8.5-10.1); Creatinine Clr Calc Pharmacy 49.9 ml/min; Est GFR (African American) 64.5; Est GFR (Non-African American) 55.6; Potassium 4.2 mmol/L (3.5-5.1)
[2019-09-15] MEDS: INSULIN ASPART 100 UNITS/ML 3 ML PEN SC SCH ×4 (08:01→20:35)
[2019-09-15 08:17] LABS: ANC (manual) 3.36 K/uL (1.4-6.5); Blast # (manual) 0.17 K/uL (0-0); Blast Cells % (manual) 1.8 %; Dohle Bodies 1+; Lymphocytes % (manual) 42.9 %; Metamyelocytes # (manual) 0.08 K/uL (0-0); Metamyelocytes % (manual) 0.9 %; Monocytes # (manual) 1.72 K/uL (0.11-0.59); Monocytes % (manual) 18.4 %; Neutrophils # (manual) 3.36 K/uL (1.4-6.5)
[2019-09-15 09:00] LABS: Base Excess ABG 9.7 mEq/L (-9-1.8); HCO3 ABG 35 mmol/L (19-24); Oxygen Saturation ABG 98.2 % (90-95); PCO2 ABG 52 mmHg (35-46); PO2 ABG 111 mmHg (80-95); pH ABG 7.45 (7.35-7.45)
[2019-09-15 09:05] LABS: Allen Test Pos (Pos)
[2019-09-15] MEDS: methylPREDNISolone 40 MG in SYRINGE 0 ML IV SCH ×2 (09:05→20:34)
[2019-09-15] MEDS: ASPIRIN 81 MG ECTAB PO SCH (09:05)
[2019-09-15] MEDS: BENZONATATE 100 MG CAPSULE PO SCH ×3 (09:05→20:34)
[2019-09-15] MEDS: carvediloL 3.125 MG TAB PO SCH ×2 (09:06→20:37)
[2019-09-15] MEDS: TERAZOSIN HCL 5 MG CAP PO SCH (09:06)
[2019-09-15] MEDS: FENOFIBRATE NANOCRYSTALLIZED 145 MG TABLET PO SCH (09:06)
[2019-09-15] MEDS: PANTOprazole 40 MG TAB PO SCH (09:06)
[2019-09-15] MEDS: CLOPIDOGREL BISULFATE 75 MG TAB PO SCH (09:06)
[2019-09-15] MEDS: FOLIC ACID 1 MG TAB PO SCH (09:06)
[2019-09-15] MEDS: FINASTERIDE 5 MG TAB PO SCH (09:06)
[2019-09-15] MEDS: CITALOPRAM 20 MG TAB PO SCH (09:06)
[2019-09-15] MEDS: guaiFENesin 600 MG TABCR PO SCH ×2 (09:06→20:52)
[2019-09-15] MEDS: FUROSEMIDE 20 MG TAB PO SCH (09:06)
[2019-09-15] MEDS: MAGNESIUM OXIDE 400 MG TAB PO SCH (09:06)
[2019-09-15] MEDS: ASCORBIC ACID 500 MG TAB PO SCH (09:06)
[2019-09-15] MEDS: UMECLIDINIUM/VILANTEROL 62.5/25MCG 7 PUFFS/INHALER INH SCH (09:07)
[2019-09-15] MEDS: SUCRALFATE 1 GM/10 ML UDC PO SCH ×4 (09:07→20:34)
[2019-09-15] MEDS: INSULIN GLARGINE SOLOSTAR 100 UNITS/ML 3 ML PEN SC SCH ×2 (09:07→20:36)
[2019-09-15] MEDS: NYSTATIN SUSP 500,000 U/5 ML UDC PO SCH ×4 (09:07→20:34)
--- NOTE | 2019-09-15 10:09 | Medical Student Progress Note ---
Date of Service September 15, 2019 Assessment & Plan (1) Thrombocytopenia: Patient is an 79 y/o male with a complex PMHx admitted for cough, SOB, and hypoxia. His non-productive cough is still persistent and his labs are improving, however he has declined in terms of his alertness and weakness since seeing him yesterday. Thrombocytopenia: - Platelets: 48 (39 on 09/13) - Drop in platelets is acute, as platelets were normal at admission. - Has blasts on differential over the last 4 days. - Drop in platelets parallels the rapid rise in calcium. 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 Cash would like to get a bone marrow biopsy this week - Will try to arrange in his office - Check CBC with diff in the morning, call Dr. Cash with results Hypercalcemia: - Down to 9.9 today, corrected for albumin it is 11.3 - Treated with Zometa 4mg IV x 1, IV fluids (which are now stopped) - Continue Diamox in addition to extra dose of Lasix today, 20mg IV - Cumulative +6 L fluid - ABG: pH 7.45, HCO3 35, pCO2 52 - PTH: low, vitamin D: low, PTH-related peptide: pending - repeat CMP in the morning Pneumonia: - Present in RML - CXR 09/08 with b/l infiltrates -- uncertain if b/l infiltrates are from infection vs ILD - Completed 7 day course of IV Rocephin and 5d Zithromax - (-) BCx - (-) COVID-19 - Sputum gram stain with moderate GNR but culture grew aspergillus - see below - Consulted Pulmonology: no further Abx, believes Aspergillus is a contaminant - Continue Tessalon, Mucinex, Incentive spirometry, and flutter valve for pulmonary toilet - Recommend diuresis - He is stable on 4L via mask which is what he uses at home Acute and chronic respiratory failure with hypoxia: - Chronic hypoxic respiratory failure secondary to COPD and ILD - Home O2 requirement: 3 L - Baseline NC/Rebreather mask O2 requirements 4-5 L - Down to 4L today - Will continue with Diamox BID for diuresis - Diffuse rhonchi on exam COPD exacerbation: - Prednisone 20mg daily resumed tomorrow, resume Solu Medrol - No wheezing today - Continue PRN nebs q6h - Pulmonary toilet - Supportive care - No further antibiotics Interstitial lung disease: - Seen on chest CT this admission - On chronic prednisone for AIHA as well as his lung disease - Will need to follow up with his patient care director with [facility] 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 seen on sputum Cx - Likely contamination - Aspergillus titers, beta 1,3 D-glucan, and aspergillus IgE: pending Diabetes mellitus type 2, uncontrolled: - Control adequate with lantus/novolog - Adjust as needed Hemolytic anemia: - AIHA: on prednisone at home - H/H stable for days - TBili: 1.2, DBili: 0.3, LDH: 5684, Haptoglobin: pending, Retics: 1.6 (09/12) - Prednisone on hold as patient on IV steroids - Continue conversations with [facility] Heme/Onc CAD (coronary artery disease): - No evidence of ischemia - Continue asa, coreg, plavix, lasix, MICH - Statin intolerant Chronic systolic CHF (congestive heart failure): - EF 45-50% - Remains compensated - Continue BB, MICH, Lasix 20mg daily - Diamox 250 BID today CLL (chronic lymphocytic leukemia): - Noted - Concomitant autoimmune hemolytic anemia - Follows with heme/onc, [facility] - Daily CBC - Speak with Dr. Cash daily, will need bone marrow Bx BPH (benign prostatic hyperplasia): - Continue finasteride, terazosin GERD without esophagitis: - Continue PPI Hyperlipidemia: - Statin intolerant HTN (hypertension): - Well controlled - Continue home meds History of stroke: - Hold ASA and plavix due to platelet drop to 48 - Recheck CBC in AM - Continue once platelets rise Dysphagia: - No formal complaints today - Speech consult, video swallow: begin minced/moist diet - Continue Nystatin 5cc ac/hs swish/swallow FEN/GI: Minced/moist diet Dispo: PCU PT/OT referral Subjective Patient says, "I just don't feel good." He was not able to describe what exactly was bothering him besides general malaise and weakness. He says he was able to get some sleep, but he has a loss of appetite - refused breakfast this AM. His cough is about the same as yesterday and he says that he's been urinating every 10-15 minutes along with "regular" bowel movements. Review of Systems Constitutional: + fatigue, + malaise and + weakness; no fever and no chills Respiratory: + cough and + dyspnea on exertion Cardiovascular: no chest pain, no palpitations, no syncope and no edema Gastrointestinal: no abdominal pain, no nausea and no vomiting Genitourinary: + urinary frequency; no difficulty urinating and no urinary incontinence Neurologic: + generalized weakness Physical Exam Constitutional: + ill appearing (falling in and out of sleep ); no acute dis tress Respiratory: normal respiratory effort Auscultation: + rhonchi (diffuse) rebreather mask Cardiovascular: Rate/Rhythm: regular rate and regular rhythm Heart Sounds: normal S1 and normal S2; no murmur Vessels: radial pulses present Extremities: normal capillary refill; no edema Gastrointestinal (Abdomen): Inspection/Auscultation: abdomen normal to inspection and normal bowel sounds Percussion/Palpation: abdomen soft; abdomen nontender, no guarding and abdomen not rigid Musculoskeletal: Head/Neck/Chest: normocephalic and head atraumatic Extremities: no cyanosis and no clubbing Neurologic: + not awake Psychiatric: Orientation: oriented x 3; + not alert Results & Data ([facility]) Vital Signs (Past 12 Hours) Vital Signs Temp Pulse Pulse Resp BP Pulse Ox 09/15/19 07:50 36.7 C 98 H 24 115/72 95 09/15/19 07:13 96 H 18 96 09/15/19 04:00 36.8 C 86 20 110/62 94 09/15/19 02:13 77 09/15/19 00:00 37.0 C 73 20 104/66 92
--- NOTE | 2019-09-15 10:34 | Pulmonology Progress Note ---
Date of Service September 15, 2019 Assessment & Plan (1) Interstitial lung disease: Impression: 79-year-old male with history of interstitial lung disease, CLL and reportedly NSIP based on review of his outpatient pulmonology notes. Recommendations: 1. ILD: Unclear etiology. From a pulmonary standpoint, the patient may transition to p.o. prednisone. Maintain saturations 88 to 90%. Chest x-ray yesterday appears to have improved from a vascular congestion standpoint. Patient is more rhonchorous today and repeat chest x-ray is pending. Maximum peak flow with forced expiration is 180 L/min. Maximum peak flow with cough is 200 L/min. 2. Bronchiectasis: Continue airway clearance therapy with flutter valve and nebulizer as needed. 3. The patient would benefit from pulmonary rehab in the outpatient setting. He will need to be clinically stable and this is deferred to his outpatient highway landscape architect. 4. Continue Diamox for a total of 3 doses and recheck bicarbonate level tomorr ow. It seems that the patient's interstitial lung disease appears to be progressive and it is unclear that we are going to have a significant impact on improving his overall outcome. He will likely need to use more oxygen when he goes home. He will require close outpatient follow-up with his highway landscape architect at [facility]. Please refer to Dr. Jiang's addendum for further recommendations. (2) Bronchiectasis: (3) Hypoxemia: Admission and Anticipated Discharge Date Admission Date: September 06, 2019 Subjective Attending: Dr. Jiang I am asked to see the patient at bedside for increasing cough and shortness of breath as well as worsening hypoxia particularly with exertion. Patient states he is more short of breath today and discussion with nursing, he seems to be in more respiratory distress. He does sound much more rhonchorous and has a wet cough that is audible from across the room. The patient states that he is having difficulty clearing secretions. He has no hemoptysis. He denies any chest pain or tightness. I did a peak flow evaluation at bedside and his maximum effort was 180 L/min. With cough maximum flow was 200 L/min. Patient seems to be tired this morning. He denies any fever or chills. He is aware that his respiratory status is worsening. Review of Systems Review of Systems: All systems reviewed & are unremarkable except as noted in HPI & below Physical Exam Physical Exam: GENERAL : No acute distress at rest. Moderate distress with forced cough. EYES: No icterus, gaze conjugate NOSE: No evidence of epistaxis MOUTH: No lesions or candidiasis. Oxymask is in place at 4 L/min NECK: Supple LUNGS: Rhonchorous in all lung smiley. Unable to appreciate any bronchospasm due to severe rhonchi HEART: Regular, heart rate is in the 90s ABDOMEN: Soft, NT, ND, BS Present EXTREMITIES: No LE edema, pedal pulses intact NEURO: A&OX3 Results & Data Results & Data ([facility]) Vital Signs (Past 12 Hours) Vital Signs Temp Pulse Pulse Resp BP Pulse Ox 09/15/19 07:50 36.7 C 98 H 24 115/72 95 09/15/19 07:13 96 H 18 96 09/15/19 04:00 36.8 C 86 20 110/62 94 09/15/19 02:13 77 09/15/19 00:00 37.0 C 73 20 104/66 92 Laboratory Results 09/15/19 06:51 09/15/19 06:51 Diagnostic Findings Repeat chest x-ray this morning is pending PG Care Time/CCT Total # of Minutes Spent Total Time Spent with Patient: Total time spent is greater than 50% in coordination of care (as documented) at patient's floor/unit and/or counseling patient: 35 minutes Coding Level of Care Code 82643 Subseq Hosp Care Lvl 3 Diagnoses Interstitial lung disease J84.9 Bronchiectasis J47.9 Hypoxemia R09.02 Time Spent (min) 35
--- NOTE | 2019-09-15 11:24 | XRay Report ---
XR chest 1V portable HISTORY: 79 years-old Male Increased dyspnea with exertion/hypoxia hypoxia with shortness of breath COMPARISON: Chest radiograph 09/14/2019, CTA chest 09/06/2019 TECHNIQUE: Portable AP view of the chest FINDINGS: Cardiac silhouette is enlarged, unchanged. Mild right hemidiaphragmatic elevation. Pulmonary vascular congestion with chronic reticular opacities. Mildly progressed interstitial coarsening with new ill- defined right basilar opacities. No pneumothorax or large pleural effusion. Degenerative changes of t he shoulders and spine. IMPRESSION: 1. Cardiomegaly and pulmonary vascular congestion with slightly progressed interstitial coarsening allen ggestive of pulmonary edema. 2. New ill-defined right lung base opacities suggest atelectasis versus pneumonitis. ACT 112: Negative or not required by law. The above report was generated using voice recognition software. It may contain grammatical, syntax o r spelling errors. Electronically signed by: Sebastián Romo M.D. 09/15/2019 11:23 AM
[2019-09-15] MEDS: ATORVASTATIN 40 MG TAB PO SCH (20:36)
--- NOTE | 2019-09-15 21:23 | Hospitalist Progress Note ---
Date of Service September 15, 2019 Assessment & Plan (1) Thrombocytopenia: drop in platelets is acute, as platelets were normal at admission. the drop in platelets parallels the rapid rise in calcium. also has blasts on differential over the last 5 days. HIT theoretically possible, Lovenox stopped, plts coming up slightly to 48 could be due to Rocephin which has been completed, but this is considered low likelihood DIC w/u negative (normal PT, PTT, fibrinogen) peripheral smear without smudge cells, just some abnormal PMNs, can be seen in several conditions thus TTP unlikely with his history of CLL, could be changing to MDS, LDH very high which has been cause for concern in the past Dr. Cash to try to come in to see the patient, will reach out to family unsure if we can get BM biopsy done here in the hospital long talk with family that BM biopsy unlikely to change prognosis as he could not go through any treatment right now check CBC in the morning (2) Hypercalcemia: down to 9.8 today, corrected for albumin it is 11.2 treated with Zometa 4mg IV x 1, IV fluids (which are now stopped) no further IV Lasix as Cr is rising PTH low, vitamin D low, PTH-related peptide still pending repeat BMP in the morning (3) Pneumonia: RML. CXR 09/08 with b/l infiltrates -- uncertain if b/l infiltrates are from infection vs ILD. completed full 7 day course of IV rocephin. completed 5 day course of zithromax. Blood cx's negative. COVID-19 negative. cont tessalon, mucinex, incentive maria ines, and flutter valve for pulmonary toilet. 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 condition is worsening, he is getting weaker, using accessory muscles, not coughing up mucous discussed with patient at the bedside with his present, he said that he would NOT want intubated and placed on ventilator if he deteriorated he would NOT want heroic measures if his heart would stop changed to DNR/DNI goals of care discussion and palliative discussion with patient's family in waiting room they are upset by his rapid decline, want him to get better but they understand that he has several chronic conditions with no cure will see how he does the next few days (4) Acute and chronic respiratory failure with hypoxia: 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 Baseline NC O2 requirements 4-5 L. working harder to breathe today, using accessory muscles, dyspneic with speaking, minimal exertion ABG with pH 7.3, CO2 50's, paO2 60's (5) COPD exacerbation: Solu Medrol q12 no wheezing today cont PRN nebs q6h. pulm toilet. supportive care. no further antibiotics (6) Interstitial lung disease: as seen on chest CT this admission on chronic prednisone for AIHA as well as his lung disease this is likely idiopathic (7) Diabetes mellitus type 2, uncontrolled: control adequate with lantus/novolog adjust as needed (8) 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 at home for such H/H stable for days, no hemolysis on peripheral smear prednisone on hold as patient on IV steroids sent out haptoglobin (pending), LDH is high at 5600 but coming down, bili is up slightly at 1.5 (9) CAD (coronary artery disease): no evidence of ischemia cont asa, coreg, plavix, lasix, MICH he is statin intolerant (10) Chronic systolic CHF (congestive heart failure): EF 45-50% remains compensated cont BB cont MICH cont lasix 20mg daily, give extra 20mg IV today will give Diamox 250 BID today (11) CLL (chronic lymphocytic leukemia): noted follows with heme/onc, [place] daily CBC concomitant autoimmune hemolytic anemia Dr. Cash will attempt to see patient in hospital (12) BPH (benign prostatic hyperplasia): cont finasteride cont terazosin (13) GERD without esophagitis: cont PPI (14) Hyperlipidemia: statin intolerant (15) HTN (hypertension): cont home meds controlled (16) History of stroke: cont asa and plavix for secondary prevention check CBC in the morning (17) Dysphagia: candidiasis?? added nystatin 5cc ac/hs swish/swallow speech consult appreciated video swallow showed no aspiration change diet to minced/moist, no straws, aspiration precautions (18) DVT prophylaxis: lovenox 40mg daily - on hold for two days cont PT/OT Admission and Anticipated Discharge Date Admission Date: September 06, 2019 Subjective patient not doing well today, he is very fatigued, not eating well, he feels more short of breath his cough is extremely weak, pulmonology asked to perform a peak flow, could not reach 200 secretions rattling in his chest and throat pulmonology added a vibratory vest today to try to help mobilize secretions platelets up slightly to 48, Hb and WBC stable, LDH back up above 6000, Cr trending up to 1.2, CO2 elevated checked ABG since he was lethargic, CO2 only 50's, pH is 7.3 sent UA to look for signs of UTI as another cause he could be more fatigued family meeting outside of the room held with the patient's daughter, , Manav Adhikari with pulmonary services [place] discussion about his respiratory decline the past three days he is very weak, has COPD and chronic interstitial pneumonia, CT also saw some bronchiectasis having a very difficult time mobilizing secretions despite aggressive pulmonary toilet, added vibratory vest BID today also, discussed that the issue with his platelets and CLL is still unclear talked with Dr Cash today, he may be able to perform BM biopsy in the hospital but is unsure discussed with family that whatever the biopsy may show, he could not go through treatment because of his pulmonary status asked family to start thinking about palliative care as he has chronic conditions that we cannot cure certainly he could turn the corner and we will continue to be aggressive and supportive with our care, but he may decline further family was tearful, had questions about whether he could go home on hospice daughter plans to speak with her other family members updated Dr. Cash about our discussions so he is aware of the pulmonary status Review of Systems Review of Systems: All systems reviewed & are unremarkable except as noted in Subjective Constitutional: + fatigue and + weakness; no fever Respiratory: + cough, + chest congestion, + dyspnea, + dyspnea on exertion and + sputum production; no wheezing Cardiovascular: no chest pain and no edema Gastrointestinal: no abdominal pain, no nausea, no vomiting, no constipation and no diarrhea/loose stools Genitourinary: + dysuria and + urinary frequency Physical Exam Constitutional: well developed, well nourished and + frail appearing; no acute distress Eyes: PERRL, conjunctivae normal, anicteric sclerae ENMT: external ear and nose normal, oropharynx normal Neck: trachea midline, no thyromegaly Respiratory: + labored breathing, + uses accessory muscles and + cough (wet cough, rattling in back of throat); no respiratory distress Auscultation: + rales and + rhonchi; no wheezes Cardiovascular: RRR, no murmur, no edema Gastrointestinal (Abdomen): normal bowel sounds, soft, nontender, no hepatos plenomegaly Musculoskeletal: no cyanosis or clubbing, extremities motor strength 5/5 Skin: no rashes, warm and dry Neurologic: patellar DTR's 2+ bilat, sensation intact and PERRL, EOMI, accommodation nl, no face palsy, no dysarthria Psychiatric: A+Ox3, euthymic affect Lymphatic: no cervical or axillary lymphadenopathy Results & Data Results & Data ([facility]) Vital Signs (Past 12 Hours) Vital Signs Temp Pulse Pulse Pulse Resp BP Pulse Ox 09/15/19 20:00 36.7 C 83 18 113/62 93 09/15/19 19:22 85 18 98 09/15/19 16:00 77 09/15/19 15:57 36.4 C L 79 23 103/67 98 09/15/19 15:02 74 16 97 09/15/19 12:00 36.9 C 87 22 93/61 L 97 09/15/19 11:24 97 H 18 97 Laboratory Results Laboratory Results - last 24 hr 09/14/19 09/15/19 09/15/19 05:38 06:51 06:51 WBC 9.33 RBC 4.06 L Hgb 13.1 L Hct 38.8 L MCV 95.6 MCH 32.3 MCHC 33.8 RDW Std Deviation 51.2 H RDW Coeff of Ra 14.5 Plt Count 48 L MPV 10.7 H Neutrophils % (Manual) 36.0 Lymphocytes % (Manual) 42.9 Monocytes % (Manual) 18.4 Metamyelocytes % (Man) 0.9 Blast Cells % (Manual) 1.8 Neutrophils # (Manual) 3.36 Total Absolute Neuts 3.36 Lymphocytes # (Manual) 4.00 H Total Abs Lymphocytes 4.00 H Monocytes # (Manual) 1.72 H Metamyelocytes # (Man) 0.08 H Blast Cells # (Man) 0.17 H Dohle Bodies 1+ Haptoglobin 130 ABG pH ABG pCO2 ABG pO2 ABG HCO3 ABG O2 Saturation ABG Base Excess Anoop Test Barometric Pressure Oxygen Given Sodium 141 Potassium 4.2 Chloride 100 Carbon Dioxide 36 H Anion Gap 5.0 BUN 51 H Creatinine 1.22 Est Cr Clr Drug Dosing 49.9 Est GFR ( Amer) 64.5 Est GFR (Non-Af Amer) 55.6 BUN/Creatinine Ratio 41.5 H Glucose 121 H POC Glucose Calcium 9.8 Lactate Dehydrogenase 09/15/19 09/15/19 09/15/19 06:51 07:27 08:44 WBC RBC Hgb Hct MCV MCH MCHC RDW Std Deviation RDW Coeff of Ra Plt Count MPV Neutrophils % (Manual) Lymphocytes % (Manual) Monocytes % (Manual) Metamyelocytes % (Man) Blast Cells % (Manual) Neutrophils # (Manual) Total Absolute Neuts Lymphocytes # (Manual) Total Abs Lymphocytes Monocytes # (Manual) Metamyelocytes # (Man) Blast Cells # (Man) Dohle Bodies Haptoglobin ABG pH 7.45 ABG pCO2 52 H ABG pO2 111 H ABG HCO3 35 H ABG O2 Saturation 98.2 H ABG Base Excess 9.7 H Anoop Test Pos Barometric Pressure 733.7 Oxygen Given 5L Sodium Potassium Chloride Carbon Dioxide Anion Gap BUN Creatinine Est Cr Clr Drug Dosing Est GFR ( Amer) Est GFR (Non-Af Amer) BUN/Creatinine Ratio Glucose POC Glucose 121 H Calcium Lactate Dehydrogenase 6951 H 09/15/19 09/15/19 09/15/19 11:17 16:21 20:28 WBC RBC Hgb Hct MCV MCH MCHC RDW Std Deviation RDW Coeff of Ra Plt Count MPV Neutrophils % (Manual) Lymphocytes % (Manual) Monocytes % (Manual) Metamyelocytes % (Man) Blast Cells % (Manual) Neutrophils # (Manual) Total Absolute Neuts Lymphocytes # (Manual) Total Abs Lymphocytes Monocytes # (Manual) Metamyelocytes # (Man) Blast Cells # (Man) Dohle Bodies Haptoglobin ABG pH ABG pCO2 ABG pO2 ABG HCO3 ABG O2 Saturation ABG Base Excess Anoop Test Barometric Pressure Oxygen Given Sodium Potassium Chloride Carbon Dioxide Anion Gap BUN Creatinine Est Cr Clr Drug Dosing Est GFR ( Amer) Est GFR (Non-Af Amer) BUN/Creatinine Ratio Glucose POC Glucose 161 H 196 H 185 H Calcium Lactate Dehydrogenase Diagnostic Findings XR chest 1V portable HISTORY: 79 years-old Male Increased dyspnea with exertion/hypoxia hypoxia with shortness of breath COMPARISON: Chest radiograph 09/14/2019, CTA chest 09/06/2019 TECHNIQUE: Portable AP view of the chest FINDINGS: Cardiac silhouette is enlarged, unchanged. Mild right hemidiaphragmatic elevation. Pulmonary vascular congestion with chronic reticular opacities. Mildly progressed interstitial coarsening with new ill-defined right basilar opacities. No pneumothorax or large pleural effusion. Degenerative changes of the shoulders and spine. IMPRESSION: 1. Cardiomegaly and pulmonary vascular congestion with slightly progressed interstitial coarsening suggestive of pulmonary edema. 2. New ill-defined right lung base opacities suggest atelectasis versus pneumonitis. Medications Administered Current Inpatient Medications Acetaminophen (Tylenol) 650 mg PO Q4H PRN PRN Reason: Pain or Fever Stop: 10/06/19 22:03 Albuterol (Duoneb) 3 ml NEB QIDR GEMA Stop: 10/07/19 06:59 Last Admin: 09/15/19 19:18 Dose: 3 ml Documented by: Alprazolam (Xanax) 0.25 mg PO BID PRN PRN Reason: anxiety Stop: 10/06/19 22:03 Ascorbic Acid (Vitamin C) 500 mg PO DAILY GEMA Stop: 10/07/19 08:59 Last Admin: 09/15/19 09:06 Dose: 500 mg Documented by: Aspirin (Ecotrin Ectab) 81 mg PO DAILY GEMA Stop: 10/07/19 08:59 Last Admin: 09/15/19 09:05 Dose: 81 mg Documented by: Atorvastatin Calcium (Lipitor) 40 mg PO HS GEMA Stop: 10/06/19 22:03 Last Admin: 09/15/19 20:36 Dose: 40 mg Documented by: Benzonatate (Tessalon Perle) 100 mg PO TID GEMA Stop: 10/07/19 13:59 Last Admin: 09/15/19 20:34 Dose: 100 mg Documented by: Carvedilol (Coreg) 3.125 mg PO BID GEMA Stop: 10/06/19 22:03 Last Admin: 09/15/19 20:37 Dose: 3.125 mg Documented by: Citalopram Hydrobromide (Celexa) 20 mg PO DAILY GEMA Stop: 10/07/19 08:59 Last Admin: 09/15/19 09:06 Dose: 20 mg Documented by: Clopidogrel Bisulfate (Plavix) 75 mg PO DAILY [facility] Stop: 10/07/19 08:59 Last Admin: 08/05/20 09:06 Dose: 75 mg Documented by: Dextrose (Dextrose 50%) 25 - 50 ml IV UD PRN; Protocol PRN Reason: Hypoglycemia Protocol Stop: 10/06/19 22:03 Enoxaparin Sodium (Lovenox) 40 mg SQ Q24H GEMA Stop: 10/06/19 21:59 Last Admin: 09/12/19 20:39 Dose: 40 mg Documented by: Fenofibrate (Tricor) 145 mg PO DAILY GEMA Stop: 10/07/19 08:59 Last Admin: 09/15/19 09:06 Dose: 145 mg Documented by: Finasteride (Proscar) 5 mg PO DAILY GEMA Stop: 10/07/19 08:59 Last Admin: 09/15/19 09:06 Dose: 5 mg Documented by: Folic Acid (Folvite) 1 mg PO DAILY GEMA Stop: 10/07/19 08:59 Last Admin: 09/15/19 09:06 Dose: 1 mg Documented by: Furosemide (Lasix) 20 mg PO DAILY GEMA Stop: 10/07/19 08:59 Last Admin: 09/15/19 09:06 Dose: 20 mg Documented by: Glucagon (Glucagen) 1 mg SQ UD PRN; Protocol PRN Reason: Hypoglycemia Protocol Stop: 10/06/19 22:03 Glucose (Dex4 Glucose) 4 - 8 tabs PO UD PRN; Protocol PRN Reason: Hypoglycemia Protocol Stop: 10/06/19 22:03 Glucose (Glucose 40%) 15 - 30 gm PO UD PRN; Protocol PRN Reason: Hypoglycemia Protocol Stop: 10/06/19 22:03 Guaifenesin (Mucinex) 1,200 mg PO Q12 GEMA Stop: 10/07/19 11:44 Last Admin: 09/15/19 20:52 Dose: 1,200 mg Documented by: Methylprednisolone 40 mg/ (Syringe) 0.64 mls @ 1.5 mls/min IV Q12 GEMA Stop: 10/15/19 08:59 Last Admin: 09/15/19 20:34 Dose: 1.5 mls/min Documented by: Insulin Aspart (Novolog Flexpen) 0 units SC ACHS GEMA Stop: 10/06/19 22:03 Last Admin: 09/15/19 20:35 Dose: 2 units Documented by: Insulin Glargine (Lantus Solostar Pen) 25 units SC BID [facility] Stop: 10/12/19 08:59 Last Admin: 09/15/19 20:36 Dose: 25 units Documented by: Lisinopril (Zestril) 10 mg PO DAILY GEMA Stop: 10/07/19 08:59 Last Admin: 09/09/19 07:37 Dose: 10 mg Documented by: Magnesium Oxide (Mag-Ox) 400 mg PO DAILY GEMA Stop: 10/07/19 08:59 Last Admin: 09/15/19 09:06 Dose: 400 mg Documented by: Menthol (Nice) 1 darell BUCCAL PRN PRN PRN Reason: Cough Stop: 10/09/19 04:09 Miscellaneous (Carbohydrates For Hypoglycemia) 15 - 30 gm PO UD PRN PRN Reason: Hypoglycemia Protocol Stop: 10/06/19 22:03 Last Admin: 09/11/19 16:23 Dose: 15 gm Documented by: Nystatin (Mycostatin) 5 ml PO QID [facility] Stop: 09/21/19 20:59 Last Admin: 09/15/19 20:34 Dose: 5 ml Documented by: Pantoprazole Sodium (Protonix) 40 mg PO DAILY GEMA Stop: 10/07/19 08:59 Last Admin: 09/15/19 09:06 Dose: 40 mg Documented by: Prednisone (Prednisone) 20 mg PO DAILY [facility] Stop: 10/07/19 08:59 Last Admin: 09/07/19 08:16 Dose: 20 mg Documented by: Sodium Chloride (Sodium Chlor 7% Neb Solution) 4 ml NEB BIDR [facility] Stop: 10/12/19 18:59 Last Admin: 09/15/19 19:21 Dose: 4 ml Documented by: Sucralfate (Carafate) 1 gm PO QID [facility] Stop: 10/11/19 20:59 Last Admin: 09/15/19 20:34 Dose: 1 gm Documented by: Terazosin HCl (Hytrin) 5 mg PO DAILY [facility] Stop: 10/07/19 08:59 Last Admin: 09/15/19 09:06 Dose: 5 mg Documented by: Umeclidinium/Vilanterol (Anoro Ellipta 62.5/25 Mcg Inh) 1 puffs INH DAILY [facility] Stop: 10/12/19 16:14 Last Admin: 09/15/19 09:07 Dose: 1 puffs Documented by: PG Care Time/CCT Total # of Minutes Spent Total Time Spent: 80 Total Time Spent with Patient: Total time spent is greater than 50% in coordination of care (as documented) at patient's floor/unit and/or counseling patient: 50 minutes spent with family discussing goals of care and poor prognosis [address] Cash on the phone twice 20 minutes with chart review, two separate visits, talking with Manav Adhikari Prolonged Care Time Prolonged Care Time: Yes Total Prolonged Care Time: 50 Coding Level of Care Code 65860 Subseq Hosp Care Lvl 3 Diagnoses Thrombocytopenia D69.6 Hypercalcemia E83.52 Pneumonia J18.9 Laterality: right Lung location: middle lobe of lung Pneumonia type: due to unspecified organism Acute and chronic respiratory failure with hypoxia J96.21 COPD exacerbation J44.1 Interstitial lung disease J84.9 Diabetes mellitus type 2, uncontrolled E11.65 Hemolytic anemia D59.1 Hemolytic anemia type: acquired, autoimmune, other CAD (coronary artery disease) I25.10 Coronary Disease-Associated Artery/Lesion type: [place] artery [place] vs. transplanted heart: [place] heart Associated angina: without angina Chronic systolic CHF (congestive heart failure) I50.22 CLL (chronic lymphocytic leukemia) C91.90 BPH (benign prostatic hyperplasia) N40.0 GERD without esophagitis K21.9 Hyperlipidemia E78.5 HTN (hypertension) I10 History of stroke Z86.73 Dysphagia R13.10 DVT prophylaxis Z29.9 Additional Codes Prolonged Care Time - Prolonged Care Time: Yes ([id number]) (1) Pneumonia Laterality: right Lung location: middle lobe of lung Pneumonia type: due to unspecified organism Qualified Code(s): J18.9 - Pneumonia, unspecified organism (2) Hemolytic anemia Hemolytic anemia type: acquired, autoimmune, other Qualified Code(s): D59.1 - Other autoimmune hemolytic anemias (3) CAD (coronary artery disease) Coronary Disease-Associated Artery/Lesion type: [place] artery [place] vs. transplanted heart: [place] heart Associated angina: without angina Qualified Code(s): I25.10 - Atherosclerotic heart disease of [place] coronary artery without angina pectoris
[2019-09-16] MEDS: SODIUM CHLOR 7% 4 ML NEB NEB SCH ×2 (07:19→19:39)
[2019-09-16] MEDS: ALBUT/IPRATROP 3MG/0.5MG NEB 3 ML VIAL NEB SCH ×4 (07:19→19:39)
[2019-09-16 07:55] LABS: Hematocrit (blood only) 35.5 % (42-52); Mean Corpuscular Hemoglobin 31.8 pg (25-34); Mean Corpuscular Hgb Conc 33.8 g/dL (32-36); Mean Corpuscular Volume 94.2 fL (80-100); RDW Coefficient of Variation 14.6 % (11.5-14.5); RDW Standard Deviation 50.7 fL (36.4-46.3); Red Blood Count 3.77 M/uL (4.7-6.1)
[2019-09-16 08:25] LABS: Albumin Level 2.8 gm/dl (3.4-5.0); BUN Creatinine Ratio 53.7 (10-20); Calcium 9.4 mg/dl (8.5-10.1); Creatinine Clr Calc Pharmacy 65.4 ml/min; Est GFR (African American) 89.5; Est GFR (Non-African American) 77.3; Potassium 4.1 mmol/L (3.5-5.1)
[2019-09-16] MEDS: FINASTERIDE 5 MG TAB PO SCH (08:25)
[2019-09-16] MEDS: SUCRALFATE 1 GM/10 ML UDC PO SCH ×4 (08:25→20:20)
[2019-09-16] MEDS: UMECLIDINIUM/VILANTEROL 62.5/25MCG 7 PUFFS/INHALER INH SCH (08:25)
[2019-09-16 08:26] LABS: Mean Platelet Volume 9.6 fL (7.4-10.4); Platelet Count 42 K/uL (130-400)
[2019-09-16] MEDS: PANTOprazole 40 MG TAB PO SCH (08:26)
[2019-09-16] MEDS: guaiFENesin 600 MG TABCR PO SCH ×2 (08:26→20:22)
[2019-09-16 08:27] LABS: Albumin Globulin Ratio 0.9 (0.9-2); Bilirubin,Total 1.4 mg/dl (0.2-1); Globulin 3.3 gm/dl (2.5-4.0); Total Protein 6.1 gm/dl (6.4-8.2)
[2019-09-16] MEDS: ASPIRIN 81 MG ECTAB PO SCH (08:27)
[2019-09-16] MEDS: CLOPIDOGREL BISULFATE 75 MG TAB PO SCH (08:27)
[2019-09-16] MEDS: ASCORBIC ACID 500 MG TAB PO SCH (08:27)
[2019-09-16] MEDS: TERAZOSIN HCL 5 MG CAP PO SCH (08:28)
[2019-09-16] MEDS: BENZONATATE 100 MG CAPSULE PO SCH ×3 (08:28→20:21)
[2019-09-16] MEDS: FENOFIBRATE NANOCRYSTALLIZED 145 MG TABLET PO SCH (08:28)
[2019-09-16] MEDS: methylPREDNISolone 40 MG in SYRINGE 0 ML IV SCH ×2 (08:29→20:22)
[2019-09-16] MEDS: FUROSEMIDE 20 MG TAB PO SCH (08:29)
[2019-09-16] MEDS: CITALOPRAM 20 MG TAB PO SCH (08:29)
[2019-09-16] MEDS: MAGNESIUM OXIDE 400 MG TAB PO SCH (08:29)
[2019-09-16] MEDS: NYSTATIN SUSP 500,000 U/5 ML UDC PO SCH ×4 (08:30→20:21)
[2019-09-16] MEDS: FOLIC ACID 1 MG TAB PO SCH (08:31)
[2019-09-16] MEDS: carvediloL 3.125 MG TAB PO SCH ×2 (08:33→20:22)
[2019-09-16] MEDS: INSULIN GLARGINE SOLOSTAR 100 UNITS/ML 3 ML PEN SC SCH ×2 (08:34→16:51)
[2019-09-16] MEDS: INSULIN ASPART 100 UNITS/ML 3 ML PEN SC SCH ×4 (08:35→20:56)
[2019-09-16 09:08] LABS: ALC (manual) 3.35 K/uL (1.2-3.4); ANC (manual) 2.89 K/uL (1.4-6.5); Blast # (manual) 0.07 K/uL (0-0); Blast Cells % (manual) 0.9 %; Dohle Bodies 2+; Echinocytes 1+; Large Granular Lymph # (manua 1.35 K/uL; Large Granular Lymph % (manual) 18.3 %; Metamyelocytes # (manual) 0.07 K/uL (0-0); Metamyelocytes % (manual) 0.9 %; Monocytes # (manual) 1.03 K/uL (0.11-0.59); Monocytes % (manual) 13.9 %; Neutrophils # (manual) 2.89 K/uL (1.4-6.5); Toxic Granulation 1+
[2019-09-16] MEDS ORDERED: VORICONAZOLE 200 MG TABLET PO SCH (10:15)
--- NOTE | 2019-09-16 10:17 | Hospitalist Progress Note ---
Date of Service September 16, 2019 Assessment & Plan (1) Thrombocytopenia: drop in platelets is acute, as platelets were normal at admission. the drop in platelets parallels the rapid rise in calcium. also has blasts on differential over the last 6 days. HIT theoretically possible, Lovenox stopped, plts came up to 48 and now down a little at 42 could be due to Rocephin which has been completed, but this is considered low likelihood DIC w/u negative (normal PT, PTT, fibrinogen) peripheral smear without smudge cells, just some abnormal PMNs, can be seen in several conditions thus TTP unlikely with his history of CLL, could be changing to MDS, LDH very high which has been cause for concern in the past Dr. Cash met with patient, he does not feel the CLL is causing the thrombocytopenia no signs of bleeding/bruising unsure that he would do well with platelet transfusion as his lungs already have fluid on them continue to follow CBC daily (2) Hypercalcemia: down to 9.4 today, corrected for albumin it is 10.8 treated with Zometa 4mg IV x 1, IV fluids (which are now stopped) no further IV Lasix continue PO Lasix daily, Cr is 0.9 PTH low, vitamin D low, PTH-related peptide still pending repeat BMP in the morning (3) Aspergillus fumigatus: sputum culture from 09/08 grew out Aspergillus Aspergillus antibodies and Beta 1,3 D Glucan sent out, results still pending likely colonization given his chronic lung disease, but given his rapid respiratory decline, we will treat start Voriconazole 200mg BID will consult Infectious Disease for their opinion on treatment family is on board with this plan (4) Pneumonia: RML. CXR 09/08 with b/l infiltrates -- uncertain if b/l infiltrates are from infection vs ILD. completed full 7 day course of IV rocephin. completed 5 day course of zithromax. Blood cx's negative. COVID-19 negative. cont tessalon, mucinex, incentive maria ines, and flutter valve for pulmonary toilet. 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 after discussing with pulmonology will start Voriconazole and ask for ID consult discussed with patient at the bedside with his present, he said that he would NOT want intubated and placed on ventilator if he deteriorated he would NOT want heroic measures if his heart would stop changed to DNR/DNI will take respiratory status day by day, family understands he could stay the same, could get better, could get worse (5) Acute and chronic respiratory failure with hypoxia: 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 Baseline NC O2 requirements 4-5 L. 09/14: ABG with pH 7.4, CO2 50's, paO2 100's breathing better today, no distress, sitting up in chair (6) COPD exacerbation: Solu Medrol q12 no wheezing today cont PRN nebs q6h. pulm toilet. supportive care. no further antibiotics (7) Interstitial lung disease: as seen on chest CT this admission on chronic prednisone for AIHA as well as his lung disease this is likely idiopathic (8) Diabetes mellitus type 2, uncontrolled: control adequate with lantus/novolog adjust as needed (9) 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 at home for such H/H stable for days, no hemolysis on peripheral smear prednisone on hold as patient on IV steroids sent out haptoglobin (pending), LDH is high, bili is up slightly at 1.5 (10) CAD (coronary artery disease): no evidence of ischemia cont asa, coreg, plavix, lasix, MICH he is statin intolerant (11) Chronic systolic CHF (congestive heart failure): EF 45-50% remains compensated cont BB cont MICH cont lasix 20mg daily (12) CLL (chronic lymphocytic leukemia): noted follows with heme/onc, [place] daily CBC concomitant autoimmune hemolytic anemia Dr. Cash will attempt to see patient in hospital (13) BPH (benign prostatic hyperplasia): cont finasteride cont terazosin (14) GERD without esophagitis: cont PPI (15) Hyperlipidemia: statin intolerant (16) HTN (hypertension): cont home meds controlled (17) History of stroke: cont asa for secondary prevention hold Plavix due to interaction with Voriconazole (18) Dysphagia: candidiasis?? added nystatin 5cc ac/hs swish/swallow speech consult appreciated video swallow showed no aspiration change diet to minced/moist, no straws, aspiration precautions (19) DVT prophylaxis: lovenox 40mg daily - on hold, last dose was 09/10 use SCD while in bed cont PT/OT Admission and Anticipated Discharge Date Admission Date: September 06, 2019 Subjective patient is more alert today, more motivated to get moving still having a difficult time coughing up phlegm he is trying to eat more but food does not taste good reviewed labs, plts down a little to 42, Hb and WBC are stable CMP shows albumin down a little at 2.8, Ca is 9.4, Cr is 0.93 and H[address] is [address] Dr[address] Cash saw patient last night, spoke with family he is recommending ID consult for opinion on the Aspergillus culture from the sputum he has concerns about patient being on Prednisone recently and being set up for the fungal infection spoke with family this morning, we can start on Voriconazole and ask for ID consult Review of Systems Review of Systems: All systems reviewed & are unremarkable except as noted in Subjective Constitutional: + fatigue and + weakness (stronger today); no fever Respiratory: + cough, + chest congestion, + dyspnea on exertion and + sputum production Cardiovascular: no chest pain and no edema Gastrointestinal: no abdominal pain, no nausea, no vomiting, no constipation and no diarrhea/loose stools Physical Exam Constitutional: well developed, well nourished and + frail appearing; no acute distress Eyes: PERRL, conjunctivae normal, anicteric sclerae ENMT: external ear and nose normal, oropharynx normal Neck: trachea midline, no thyromegaly Respiratory: + uses accessory muscles and + cough (wet cough, rattling in back of throat); no respiratory distress Auscultation: + rales and + rhonchi; no wheezes Cardiovascular: RRR, no murmur, no edema Gastrointestinal (Abdomen): normal bowel sounds, soft, nontender, no hepatosplenomegaly Musculoskeletal: no cyanosis or clubbing, extremities motor strength 5/5 Skin: no rashes, warm and dry Neurologic: patellar DTR's 2+ bilat, sensation intact and PERRL, EOMI, accommodation nl, no face palsy, no dysarthria Psychiatric: A+Ox3, euthymic affect Lymphatic: no cervical or axillary lymphadenopathy Results & Data Results & Data ([facility]) Vital Signs (Past 12 Hours) Vital Signs Temp Pulse Pulse Resp BP Pulse Ox 09/16/19 07:40 36.8 C 75 20 113/65 98 09/16/19 07:22 77 20 97 09/16/19 03:31 37.0 C 73 21 108/69 93 09/16/19 02:03 70 09/15/19 23:41 36.8 C 72 22 121/58 L 97 Laboratory Results Laboratory Results - last 24 hr 09/14/19 09/15/19 09/15/19 05:38 11:17 16:21 WBC RBC Hgb Hct MCV MCH MCHC RDW Std Deviation RDW Coeff of Ra Plt Count MPV Neutrophils % (Manual) Lymphocytes % (Manual) Monocytes % (Manual) Metamyelocytes % (Man) Blast Cells % (Manual) Neutrophils # (Manual) Total Absolute Neuts Lymphocytes # (Manual) Total Abs Lymphocytes Monocytes # (Manual) Metamyelocytes # (Man) Blast Cells # (Man) Large Granular Lymphs # Lrg Granular Lymphs Toxic Granulation Dohle Bodies Echinocytes Haptoglobin 130 Sodium Potassium Chloride Carbon Dioxide Anion Gap BUN Creatinine Est Cr Clr Drug Dosing Est GFR ( Amer) Est GFR (Non-Af Amer) BUN/Creatinine Ratio Glucose POC Glucose 161 H 196 H Calcium Total Bilirubin AST ALT Alkaline Phosphatase Total Protein Albumin Globulin Albumin/Globulin Ratio 09/15/19 09/16/19 09/16/19 20:28 07:40 07:40 WBC 7.40 RBC 3.77 L Hgb 12.0 L Hct 35.5 L MCV 94.2 MCH 31.8 MCHC 33.8 RDW Std Deviation 50.7 H RDW Coeff of Ra 14.6 H Plt Count 42 L MPV 9.6 Neutrophils % (Manual) 39.0 Lymphocytes % (Manual) 27.0 Monocytes % (Manual) 13.9 Metamyelocytes % (Man) 0.9 Blast Cells % (Manual) 0.9 Neutrophils # (Manual) 2.89 Total Absolute Neuts 2.89 Lymphocytes # (Manual) 2.00 Total Abs Lymphocytes 3.35 Monocytes # (Manual) 1.03 H Metamyelocytes # (Man) 0.07 H Blast Cells # (Man) 0.07 H Large Granular Lymphs 18.3 # Lrg Granular Lymphs 1.35 Toxic Granulation 1+ Dohle Bodies 2+ Echinocytes 1+ Haptoglobin Sodium 138 Potassium 4.1 Chloride 100 Carbon Dioxide 33 H Anion Gap 5.0 BUN 50 H Creatinine 0.93 Est Cr Clr Drug Dosing 65.4 Est GFR ( Amer) 89.5 Est GFR (Non-Af Amer) 77.3 BUN/Creatinine Ratio 53.7 H Glucose 140 H POC Glucose 185 H Calcium 9.4 Total Bilirubin 1.4 H AST 98 H ALT 18 Alkaline Phosphatase 57 Total Protein 6.1 L Albumin 2.8 L Globulin 3.3 Albumin/Globulin Ratio 0.9 09/16/19 08:34 WBC RBC Hgb Hct MCV MCH MCHC RDW Std Deviation RDW Coeff of Ra Plt Count MPV Neutrophils % (Manual) Lymphocytes % (Manual) Monocytes % (Manual) Metamyelocytes % (Man) Blast Cells % (Manual) Neutrophils # (Manual) Total Absolute Neuts Lymphocytes # (Manual) Total Abs Lymphocytes Monocytes # (Manual) Metamyelocytes # (Man) Blast Cells # (Man) Large Granular Lymphs # Lrg Granular Lymphs Toxic Granulation Dohle Bodies Echinocytes Haptoglobin Sodium Potassium Chloride Carbon Dioxide Anion Gap BUN Creatinine Est Cr Clr Drug Dosing Est GFR ( Amer) Est GFR (Non-Af Amer) BUN/Creatinine Ratio Glucose POC Glucose 238 H Calcium Total Bilirubin AST ALT Alkaline Phosphatase Total Protein Albumin Globulin Albumin/Globulin Ratio Medications Administered Current Inpatient Medications Acetaminophen (Tylenol) 650 mg PO Q4H PRN PRN Reason: Pain or Fever Stop: 10/06/19 22:03 Albuterol (Duoneb) 3 ml NEB QIDR [facility] Stop: 10/07/19 06:59 Last Admin: 09/16/19 07:19 Dose: 3 ml Documented by: Alprazolam (Xanax) 0.25 mg PO BID PRN PRN Reason: anxiety Stop: 10/06/19 22:03 Ascorbic Acid (Vitamin C) 500 mg PO DAILY [facility] Stop: 10/07/19 08:59 Last Admin: 09/16/19 08:27 Dose: 500 mg Documented by: Aspirin (Ecotrin Ectab) 81 mg PO DAILY [facility] Stop: 10/07/19 08:59 Last Admin: 09/16/19 08:27 Dose: 81 mg Documented by: Atorvastatin Calcium (Lipitor) 40 mg PO HS [facility] Stop: 10/06/19 22:03 Last Admin: 09/15/19 20:36 Dose: 40 mg Documented by: Benzonatate (Tessalon Perle) 100 mg PO TID [facility] Stop: 10/07/19 13:59 Last Admin: 09/16/19 08:28 Dose: 100 mg Documented by: Carvedilol (Coreg) 3.125 mg PO BID [facility] Stop: 10/06/19 22:03 Last Admin: 09/16/19 08:33 Dose: 3.125 mg Documented by: Citalopram Hydrobromide (Celexa) 20 mg PO DAILY [facility] Stop: 10/07/19 08:59 Last Admin: 09/16/19 08:29 Dose: 20 mg Documented by: Dextrose (Dextrose 50%) 25 - 50 ml IV UD PRN; Protocol PRN Reason: Hypoglycemia Protocol Stop: 10/06/19 22:03 Enoxaparin Sodium (Lovenox) 40 mg SQ Q24H [facility] Stop: 10/06/19 21:59 Last Admin: 09/12/19 20:39 Dose: 40 mg Documented by: Fenofibrate (Tricor) 145 mg PO DAILY [facility] Stop: 10/07/19 08:59 Last Admin: 09/16/19 08:28 Dose: 145 mg Documented by: Finasteride (Proscar) 5 mg PO DAILY [facility] Stop: 10/07/19 08:59 Last Admin: 09/16/19 08:25 Dose: 5 mg Documented by: Folic Acid (Folvite) 1 mg PO DAILY [facility] Stop: 10/07/19 08:59 Last Admin: 09/16/19 08:31 Dose: 1 mg Documented by: Furosemide (Lasix) 20 mg PO DAILY [facility] Stop: 10/07/19 08:59 Last Admin: 09/16/19 08:29 Dose: 20 mg Documented by: Glucagon (Glucagen) 1 mg SQ UD PRN; Protocol PRN Reason: Hypoglycemia Protocol Stop: 10/06/19 22:03 Glucose (Dex4 Glucose) 4 - 8 tabs PO UD PRN; Protocol PRN Reason: Hypoglycemia Protocol Stop: 10/06/19 22:03 Glucose (Glucose 40%) 15 - 30 gm PO UD PRN; Protocol PRN Reason: Hypoglycemia Protocol Stop: 10/06/19 22:03 Guaifenesin (Mucinex) 1,200 mg PO Q12 [facility] Stop: 10/07/19 11:44 Last Admin: 09/16/19 08:26 Dose: 1,200 mg Documented by: Methylprednisolone 40 mg/ (Syringe) 0.64 mls @ 1.5 mls/min IV Q12 [facility] Stop: 10/15/19 08:59 Last Admin: 09/16/19 08:29 Dose: 1.5 mls/min Documented by: Insulin Aspart (Novolog Flexpen) 0 units SC ACHS [facility] Stop: 10/06/19 22:03 Last Admin: 09/16/19 08:35 Dose: 4 units Documented by: Insulin Glargine (Lantus Solostar Pen) 25 units SC BID [facility] Stop: 10/12/19 08:59 Last Admin: 09/16/19 08:34 Dose: 25 units Documented by: Lisinopril (Zestril) 10 mg PO DAILY [facility] Stop: 10/07/19 08:59 Last Admin: 09/09/19 07:37 Dose: 10 mg Documented by: Magnesium Oxide (Mag-Ox) 400 mg PO DAILY [facility] Stop: 10/07/19 08:59 Last Admin: 09/16/19 08:29 Dose: 400 mg Documented by: Menthol (Nice) 1 darell BUCCAL PRN PRN PRN Reason: Cough Stop: 10/09/19 04:09 Miscellaneous (Carbohydrates For Hypoglycemia) 15 - 30 gm PO UD PRN PRN Reason: Hypoglycemia Protocol Stop: 10/06/19 22:03 Last Admin: 09/11/19 16:23 Dose: 15 gm Documented by: Nystatin (Mycostatin) 5 ml PO QID [facility] Stop: 09/21/19 20:59 Last Admin: 09/16/19 08:30 Dose: 5 ml Documented by: Pantoprazole Sodium (Protonix) 40 mg PO DAILY [facility] Stop: 10/07/19 08:59 Last Admin: 09/16/19 08:26 Dose: 40 mg Documented by: Prednisone (Prednisone) 20 mg PO DAILY [facility] Stop: 10/07/19 08:59 Last Admin: 09/07/19 08:16 Dose: 20 mg Documented by: Sodium Chloride (Sodium Chlor 7% Neb Solution) 4 ml NEB BIDR [facility] Stop: 10/12/19 18:59 Last Admin: 09/16/19 07:19 Dose: 4 ml Documented by: Sucralfate (Carafate) 1 gm PO QID [facility] Stop: 10/11/19 20:59 Last Admin: 09/16/19 08:25 Dose: 1 gm Documented by: Terazosin HCl (Hytrin) 5 mg PO DAILY [facility] Stop: 10/07/19 08:59 Last Admin: 09/16/19 08:28 Dose: 5 mg Documented by: Umeclidinium/Vilanterol (Anoro Ellipta 62.5/25 Mcg Inh) 1 puffs INH DAILY [facility] Stop: 10/12/19 16:14 Last Admin: 09/16/19 08:25 Dose: 1 puffs Documented by: Voriconazole (Vfend) 200 mg PO BID [facility] Stop: 09/23/19 10:14 PG Care Time/CCT Total # of Minutes Spent Total Time Spent with Patient: Total time spent is greater than 50% in coordination of care (as documented) at patient's floor/unit and/or counseling patient: Coding Level of Care Code 69987 Subseq Hosp Care Lvl 3 Diagnoses Thrombocytopenia D69.6 Hypercalcemia E83.52 Aspergillus fumigatus B44.89 Pneumonia J18.9 Laterality: right Lung location: middle lobe of lung Pneumonia type: due to unspecified organism Acute and chronic respiratory failure with hypoxia J96.21 COPD exacerbation J44.1 Interstitial lung disease J84.9 Diabetes mellitus type 2, uncontrolled E11.65 Hemolytic anemia D59.1 Hemolytic anemia type: acquired, autoimmune, other CAD (coronary artery disease) I25.10 Coronary Disease-Associated Artery/Lesion type: [place] artery [place] vs. transplanted heart: [place] heart Associated angina: without angina Chronic systolic CHF (congestive heart failure) I50.22 CLL (chronic lymphocytic leukemia) C91.90 BPH (benign prostatic hyperplasia) N40.0 GERD without esophagitis K21.9 Hyperlipidemia E78.5 HTN (hypertension) I10 History of stroke Z86.73 Dysphagia R13.10 DVT prophylaxis Z29.9 (1) Pneumonia Laterality: right Lung location: middle lobe of lung Pneumonia type: due to unspecified organism Qualified Code(s): J18.9 - Pneumonia, unspecified organism (2) Hemolytic anemia Hemolytic anemia type: acquired, autoimmune, other Qualified Code(s): D59.1 - Other autoimmune hemolytic anemias (3) CAD (coronary artery disease) Coronary Disease-Associated Artery/Lesion type: [place] artery [place] vs. transplanted heart: [place] heart Associated angina: without angina Qualified Code(s): I25.10 - Atherosclerotic heart disease of [place] coronary artery without angina pectoris
--- NOTE | 2019-09-16 15:25 | Communication Note ---
Date of Service: September 16, 2019
[2019-09-16 17:44] LABS: Asperg Fumig Class 0; Asperg Fumig IgE <0.10 kU/L; PTH Related Protein 12 pg/mL (14-27)
[2019-09-16] MEDS: ATORVASTATIN 40 MG TAB PO SCH (20:21)
[2019-09-16] MEDS ORDERED: ATORVASTATIN 20 MG TAB PO SCH (21:00)
[2019-09-17] MEDS: ALBUT/IPRATROP 3MG/0.5MG NEB 3 ML VIAL NEB SCH ×4 (06:58→19:08)
[2019-09-17] MEDS: SODIUM CHLOR 7% 4 ML NEB NEB SCH ×2 (06:59→19:08)
[2019-09-17 08:03] LABS: Hematocrit (blood only) 35.5 % (42-52); Hemoglobin 11.8 g/dL (14.0-18.0); Mean Corpuscular Hemoglobin 31.6 pg (25-34); Mean Corpuscular Hgb Conc 33.2 g/dL (32-36); Mean Corpuscular Volume 94.9 fL (80-100); RDW Coefficient of Variation 14.8 % (11.5-14.5); RDW Standard Deviation 51.2 fL (36.4-46.3); Red Blood Count 3.74 M/uL (4.7-6.1); White Blood Count 9.32 K/uL (4.8-10.8)
[2019-09-17 08:14] LABS: Mean Platelet Volume 10.2 fL (7.4-10.4); Platelet Count 48 K/uL (130-400)
[2019-09-17] MEDS: INSULIN ASPART 100 UNITS/ML 3 ML PEN SC SCH ×4 (08:35→21:26)
[2019-09-17 08:37] LABS: BUN Creatinine Ratio 54.6 (10-20); Calcium 9.2 mg/dl (8.5-10.1); Creatinine Clr Calc Pharmacy 59.6 ml/min; Est GFR (African American) 80.1; Est GFR (Non-African American) 69.1; Potassium 4.6 mmol/L (3.5-5.1)
[2019-09-17] MEDS: UMECLIDINIUM/VILANTEROL 62.5/25MCG 7 PUFFS/INHALER INH SCH (08:37)
[2019-09-17] MEDS: SUCRALFATE 1 GM/10 ML UDC PO SCH ×4 (08:38→21:19)
[2019-09-17] MEDS: NYSTATIN SUSP 500,000 U/5 ML UDC PO SCH ×4 (08:38→21:20)
[2019-09-17] MEDS: BENZONATATE 100 MG CAPSULE PO SCH ×3 (08:39→21:20)
[2019-09-17] MEDS: guaiFENesin 600 MG TABCR PO SCH ×2 (08:39→21:20)
[2019-09-17] MEDS: INSULIN GLARGINE SOLOSTAR 100 UNITS/ML 3 ML PEN SC SCH ×2 (08:40→21:26)
[2019-09-17] MEDS: FENOFIBRATE NANOCRYSTALLIZED 145 MG TABLET PO SCH (08:41)
[2019-09-17] MEDS: ASCORBIC ACID 500 MG TAB PO SCH (08:41)
[2019-09-17] MEDS: PANTOprazole 40 MG TAB PO SCH (08:41)
[2019-09-17] MEDS: FUROSEMIDE 20 MG TAB PO SCH (08:42)
[2019-09-17] MEDS: TERAZOSIN HCL 5 MG CAP PO SCH (08:42)
[2019-09-17] MEDS: FINASTERIDE 5 MG TAB PO SCH (08:42)
[2019-09-17] MEDS: CITALOPRAM 20 MG TAB PO SCH (08:43)
[2019-09-17] MEDS: carvediloL 3.125 MG TAB PO SCH ×2 (08:43→21:19)
[2019-09-17] MEDS: ASPIRIN 81 MG ECTAB PO SCH (08:43)
[2019-09-17] MEDS: FOLIC ACID 1 MG TAB PO SCH (08:43)
[2019-09-17] MEDS: MAGNESIUM OXIDE 400 MG TAB PO SCH (08:43)
[2019-09-17] MEDS: methylPREDNISolone 40 MG in SYRINGE 0 ML IV SCH ×2 (08:45→21:20)
[2019-09-17 09:47] LABS: ALC (manual) 2.92 K/uL (1.2-3.4); ANC (manual) 4.94 K/uL (1.4-6.5); Blast # (manual) 0.08 K/uL (0-0); Blast Cells % (manual) 0.9 %; Dohle Bodies 1+; Large Granular Lymph # (manua 1.95 K/uL; Large Granular Lymph % (manual) 20.9 %; Lymphocytes # (manual) 0.97 K/uL (1.2-3.4); Lymphocytes % (manual) 10.4 %; Metamyelocytes # (manual) 0.08 K/uL (0-0); Metamyelocytes % (manual) 0.9 %; Monocytes # (manual) 1.05 K/uL (0.11-0.59); Monocytes % (manual) 11.3 %; Myelocytes # (manual) 0.24 K/uL (0-0); Myelocytes % (manual) 2.6 %; Neutrophils # (manual) 4.94 K/uL (1.4-6.5)
[2019-09-17] MEDS: LOPERAMIDE HCL 2 MG CAP PO PRN (12:43)
[2019-09-17] MEDS: ATORVASTATIN 40 MG TAB PO SCH (21:19)
--- NOTE | 2019-09-17 21:24 | Hospitalist Progress Note ---
Date of Service September 17, 2019 Assessment & Plan (1) Thrombocytopenia: drop in platelets was acute, as platelets were normal at admission. the drop in platelets parallels the rapid rise in calcium. also has blasts on differential over the last 7 days. HIT theoretically possible, Lovenox stopped, plts stable for three days, > 40 could be due to Rocephin which has been completed, but this is considered low likelihood DIC w/u negative (normal PT, PTT, fibrinogen) peripheral smear without smudge cells, just some abnormal PMNs, can be seen in several conditions thus TTP unlikely with his history of CLL, could be changing to MDS, LDH very high which has been cause for concern in the past Dr. Cash met with patient, he does not feel the CLL is causing the thrombocytopenia no signs of bleeding/bruising unsure that he would do well with platelet transfusion as his lungs already have fluid on them continue to follow CBC daily, no treatment planned for platelets, just monitor (2) Hypercalcemia: down to 9.2 today, corrected for albumin it is 10.5 treated with Zometa 4mg IV x 1, IV fluids (which are now stopped) no further IV Lasix continue PO Lasix daily, Cr is stable PTH low, vitamin D low, PTH-related peptide still pending repeat BMP in the morning (3) Aspergillus fumigatus: sputum culture from 09/08 grew out Aspergillus Aspergillus antibodies and Beta 1,3 D Glucan sent out, results still pending likely colonization given his chronic lung disease consulted ID from [facility] for their opinion, agreed that likely colonization no signs of active fungal infection on CT chest stop Voriconazole (4) Pneumonia: RML. CXR 09/08 with b/l infiltrates -- uncertain if b/l infiltrates are from infection vs ILD. completed full 7 day course of IV rocephin. completed 5 day course of zithromax. Blood cx's negative. COVID-19 negative. cont tessalon, mucinex, incentive maria ines, and flutter valve for pulmonary toilet. added vibratory vest treatments to try to mobilize fluids Sputum gram stain with moderate GNR but culture grew aspergillus - likely colonized after discussing with pulmonology confirmed this with [facility] service discussed with patient at the bedside with his present, he said that he would NOT want intubated and placed on ventilator if he deteriorated he would NOT want heroic measures if his heart would stop changed to DNR/DNI on 09/14 will take respiratory status day by day, family understands he could stay the same, could get better, could get worse will move towards palliative approach at home, will likely go home on hospice (5) Acute and chronic respiratory failure with hypoxia: 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 Baseline NC O2 requirements 4-5 L. 09/14: ABG with pH 7.4, CO2 50's, paO2 100's breathing is stable on 4L today, able to ambulate to the bathroom working with therapy breathing will only get worse slowly, could rapidly decline with another pneumonia will look into home hospice (6) COPD exacerbation: continue Solu Medrol q12 no wheezing today cont PRN nebs q6h. pulm toilet. supportive care. no further antibiotics start on Prednisone 40 tomorrow with long taper (7) Interstitial lung disease: as seen on chest CT this admission on chronic prednisone for AIHA as well as his lung disease this is likely idiopathic hospice care (8) Diabetes mellitus type 2, uncontrolled: control adequate with lantus/novolog adjust as needed (9) 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 at home for such H/H stable for days, no hemolysis on peripheral smear prednisone on hold as patient on IV steroids sent out haptoglobin (pending), LDH is high, bili is up slightly at 1.5 (10) CAD (coronary artery disease): no evidence of ischemia cont asa, coreg, plavix, lasix, MICH he is statin intolerant (11) Chronic systolic CHF (congestive heart failure): EF 45-50% remains compensated cont BB cont MICH cont lasix 20mg daily (12) CLL (chronic lymphocytic leukemia): noted follows with heme/onc, [facility] daily CBC concomitant autoimmune hemolytic anemia Dr. Cash following (13) BPH (benign prostatic hyperplasia): cont finasteride cont terazosin (14) GERD without esophagitis: cont PPI (15) Hyperlipidemia: statin intolerant (16) HTN (hypertension): cont home meds controlled (17) History of stroke: cont asa for secondary prevention hold Plavix due to interaction with Voriconazole (18) Dysphagia: candidiasis?? added nystatin 5cc ac/hs swish/swallow speech consult appreciated video swallow showed no aspiration change diet to minced/moist, no straws, aspiration precautions (19) DVT prophylaxis: lovenox 40mg daily - on hold, last dose was 09/10 use SCD while in bed cont PT/OT Admission and Anticipated Discharge Date Admission Date: September 06, 2019 Subjective patient with more energy today, trying to eat more he says his breathing is the same discussed with family at the bedside, may need to consider hospice care due to severe lung disease discussed his needs at home, would need a nebulizer, vibratory vest, hospital bed he can live on one floor if needed reviewed labs, plts up slightly at 48 Review of Systems Review of Systems: All systems reviewed & are unremarkable except as noted in Subjective Constitutional: + fatigue and + weakness; no fever Respiratory: + cough, + dyspnea on exertion and + sputum production; no dyspnea Cardiovascular: no chest pain and no edema Gastrointestinal: + diarrhea/loose stools; no abdominal pain, no nausea, no vomiting and no constipation Physical Exam Constitutional: well developed, well nourished and + frail appearing; no acute distress Eyes: PERRL, conjunctivae normal, anicteric sclerae ENMT: external ear and nose normal, oropharynx normal Neck: trachea midline, no thyromegaly Respiratory: + cough (wet cough, rattling in back of throat); no respiratory distress Auscultation: + rales and + rhonchi; no wheezes Cardiovascular: RRR, no murmur, no edema Gastrointestinal (Abdomen): normal bowel sounds, soft, nontender, no hepatosplenomegaly Musculoskeletal: no cyanosis or clubbing, extremities motor strength 5/5 Skin: no rashes, warm and dry Neurologic: patellar DTR's 2+ bilat, sensation intact and PERRL, EOMI, accommodation nl, no face palsy, no dysarthria Psychiatric: A+Ox3, euthymic affect Lymphatic: no cervical or axillary lymphadenopathy Results & Data Results & Data ([facility]) Vital Signs (Past 12 Hours) Vital Signs Temp Pulse Resp BP BP Pulse Ox 09/17/19 19:47 36.4 C L 86 22 104/59 L 97 09/17/19 19:10 87 18 98 09/17/19 15:22 81 20 94 09/17/19 15:15 36.5 C 80 20 111/72 94 09/17/19 12:02 36.6 C 97 H 22 97/64 L 96 09/17/19 11:06 97 H 20 96 Laboratory Results Laboratory Results - last 24 hr 09/17/19 09/17/19 09/17/19 00:12 06:25 07:26 WBC RBC Hgb Hct MCV MCH MCHC RDW Std Deviation RDW Coeff of Ra Plt Count MPV Neutrophils % (Manual) Lymphocytes % (Manual) Monocytes % (Manual) Metamyelocytes % (Man) Myelocytes % (Man) Blast Cells % (Manual) Neutrophils # (Manual) Total Absolute Neuts Lymphocytes # (Manual) Total Abs Lymphocytes Monocytes # (Manual) Metamyelocytes # (Man) Myelocytes # (Manual) Blast Cells # (Man) Large Granular Lymphs # Lrg Granular Lymphs Dohle Bodies Sodium Potassium Chloride Carbon Dioxide Anion Gap BUN Creatinine Est Cr Clr Drug Dosing Est GFR ( Amer) Est GFR (Non-Af Amer) BUN/Creatinine Ratio Glucose POC Glucose 102 H 191 H Calcium Stl C. diff Tox B Gene Negative Cdiff Gene 09/17/19 09/17/19 09/17/19 07:50 07:50 11:16 WBC 9.32 RBC 3.74 L Hgb 11.8 L Hct 35.5 L MCV 94.9 MCH 31.6 MCHC 33.2 RDW Std Deviation 51.2 H RDW Coeff of Ra 14.8 H Plt Count 48 L MPV 10.2 Neutrophils % (Manual) 53.0 Lymphocytes % (Manual) 10.4 Monocytes % (Manual) 11.3 Metamyelocytes % (Man) 0.9 Myelocytes % (Man) 2.6 Blast Cells % (Manual) 0.9 Neutrophils # (Manual) 4.94 Total Absolute Neuts 4.94 Lymphocytes # (Manual) 0.97 L Total Abs Lymphocytes 2.92 Monocytes # (Manual) 1.05 H Metamyelocytes # (Man) 0.08 H Myelocytes # (Manual) 0.24 H Blast Cells # (Man) 0.08 H Large Granular Lymphs 20.9 # Lrg Granular Lymphs 1.95 Dohle Bodies 1+ Sodium 137 Potassium 4.6 Chloride 100 Carbon Dioxide 33 H Anion Gap 4.0 BUN 56 H Creatinine 1.02 Est Cr Clr Drug Dosing 59.6 Est GFR ( Amer) 80.1 Est GFR (Non-Af Amer) 69.1 BUN/Creatinine Ratio 54.6 H Glucose 169 H POC Glucose 263 H Calcium 9.2 Stl C. diff Tox B Gene 09/17/19 09/17/19 16:17 20:12 WBC RBC Hgb Hct MCV MCH MCHC RDW Std Deviation RDW Coeff of Ar Plt Count MPV Neutrophils % (Manual) Lymphocytes % (Manual) Monocytes % (Manual) Metamyelocytes % (Man) Myelocytes % (Man) Blast Cells % (Manual) Neutrophils # (Manual) Total Absolute Neuts Lymphocytes # (Manual) Total Abs Lymphocytes Monocytes # (Manual) Metamyelocytes # (Man) Myelocytes # (Manual) Blast Cells # (Man) Large Granular Lymphs # Lrg Granular Lymphs Dohle Bodies Sodium Potassium Chloride Carbon Dioxide Anion Gap BUN Creatinine Est Cr Clr Drug Dosing Est GFR ( Amer) Est GFR (Non-Af Amer) BUN/Creatinine Ratio Glucose POC Glucose 169 H 276 H Calcium Stl C. diff Tox B Gene Medications Administered Current Inpatient Medications Acetaminophen (Tylenol) 650 mg PO Q4H PRN PRN Reason: Pain or Fever Stop: 10/06/19 22:03 Albuterol (Duoneb) 3 ml NEB QIDR [facility] Stop: 10/07/19 06:59 Last Admin: 09/17/19 19:08 Dose: 3 ml Documented by: Alprazolam (Xanax) 0.25 mg PO BID PRN PRN Reason: anxiety Stop: 10/06/19 22:03 Ascorbic Acid (Vitamin C) 500 mg PO DAILY [facility] Stop: 10/07/19 08:59 Last Admin: 09/17/19 08:41 Dose: 500 mg Documented by: Aspirin (Ecotrin Ectab) 81 mg PO DAILY [facility] Stop: 10/07/19 08:59 Last Admin: 09/17/19 08:43 Dose: 81 mg Documented by: Atorvastatin Calcium (Lipitor) 40 mg PO HS [facility] Stop: 10/06/19 22:03 Last Admin: 09/16/19 20:21 Dose: 40 mg Documented by: Benzonatate (Tessalon Perle) 100 mg PO TID [facility] Stop: 10/07/19 13:59 Last Admin: 09/17/19 12:37 Dose: 100 mg Documented by: Carvedilol (Coreg) 3.125 mg PO BID [facility] Stop: 10/06/19 22:03 Last Admin: 09/17/19 08:43 Dose: 3.125 mg Documented by: Citalopram Hydrobromide (Celexa) 20 mg PO DAILY [facility] Stop: 10/07/19 08:59 Last Admin: 09/17/19 08:43 Dose: 20 mg Documented by: Dextrose (Dextrose 50%) 25 - 50 ml IV UD PRN; Protocol PRN Reason: Hypoglycemia Protocol Stop: 10/06/19 22:03 Fenofibrate (Tricor) 145 mg PO DAILY [facility] Stop: 10/07/19 08:59 Last Admin: 09/17/19 08:41 Dose: 145 mg Documented by: Finasteride (Proscar) 5 mg PO DAILY [facility] Stop: 10/07/19 08:59 Last Admin: 09/17/19 08:42 Dose: 5 mg Documented by: Folic Acid (Folvite) 1 mg PO DAILY [facility] Stop: 10/07/19 08:59 Last Admin: 09/17/19 08:43 Dose: 1 mg Documented by: Furosemide (Lasix) 20 mg PO DAILY [facility] Stop: 10/07/19 08:59 Last Admin: 09/17/19 08:42 Dose: 20 mg Documented by: Glucagon (Glucagen) 1 mg SQ UD PRN; Protocol PRN Reason: Hypoglycemia Protocol Stop: 10/06/19 22:03 Glucose (Dex4 Glucose) 4 - 8 tabs PO UD PRN; Protocol PRN Reason: Hypoglycemia Protocol Stop: 10/06/19 22:03 Glucose (Glucose 40%) 15 - 30 gm PO UD PRN; Protocol PRN Reason: Hypoglycemia Protocol Stop: 10/06/19 22:03 Guaifenesin (Mucinex) 1,200 mg PO Q12 [facility] Stop: 10/07/19 11:44 Last Admin: 09/17/19 08:39 Dose: 1,200 mg Documented by: Methylprednisolone 40 mg/ (Syringe) 0.64 mls @ 1.5 mls/min IV Q12 [facility] Stop: 10/15/19 08:59 Last Admin: 09/17/19 08:45 Dose: 1.5 mls/min Documented by: Insulin Aspart (Novolog Flexpen) 0 units SC ACHS [facility] Stop: 10/06/19 22:03 Last Admin: 09/17/19 17:02 Dose: 11 units Documented by: Insulin Glargine (Lantus Solostar Pen) 30 units SC BID [facility] Stop: 10/16/19 20:59 Last Admin: 09/17/19 08:40 Dose: 30 units Documented by: Lisinopril (Zestril) 10 mg PO DAILY [facility] Stop: 10/07/19 08:59 Last Admin: 09/09/19 07:37 Dose: 10 mg Documented by: Loperamide HCl (Imodium) 2 mg PO Q6 PRN PRN Reason: Diarrhea Stop: 10/17/19 11:56 Last Admin: 09/17/19 12:43 Dose: 2 mg Documented by: Magnesium Oxide (Mag-Ox) 400 mg PO DAILY [facility] Stop: 10/07/19 08:59 Last Admin: 09/17/19 08:43 Dose: 400 mg Documented by: Menthol (Nice) 1 darell BUCCAL PRN PRN PRN Reason: Cough Stop: 10/09/19 04:09 Miscellaneous (Carbohydrates For Hypoglycemia) 15 - 30 gm PO UD PRN PRN Reason: Hypoglycemia Protocol Stop: 10/06/19 22:03 Last Admin: 09/11/19 16:23 Dose: 15 gm Documented by: Nystatin (Mycostatin) 5 ml PO QID [facility] Stop: 09/21/19 20:59 Last Admin: 09/17/19 17:06 Dose: 5 ml Documented by: Pantoprazole Sodium (Protonix) 40 mg PO DAILY [facility] Stop: 10/07/19 08:59 Last Admin: 09/17/19 08:41 Dose: 40 mg Documented by: Prednisone (Prednisone) 20 mg PO DAILY [facility] Stop: 10/07/19 08:59 Last Admin: 09/07/19 08:16 Dose: 20 mg Documented by: Sodium Chloride (Sodium Chlor 7% Neb Solution) 4 ml NEB BIDR [facility] Stop: 10/12/19 18:59 Last Admin: 09/17/19 19:08 Dose: 4 ml Documented by: Sucralfate (Carafate) 1 gm PO QID [facility] Stop: 10/11/19 20:59 Last Admin: 09/17/19 17:07 Dose: 1 gm Documented by: Terazosin HCl (Hytrin) 5 mg PO DAILY [facility] Stop: 10/07/19 08:59 Last Admin: 09/17/19 08:42 Dose: 5 mg Documented by: Umeclidinium/Vilanterol (Anoro Ellipta 62.5/25 Mcg Inh) 1 puffs INH DAILY [facility] Stop: 10/12/19 16:14 Last Admin: 09/17/19 08:37 Dose: 1 puffs Documented by: PG Care Time/CCT Total # of Minutes Spent Total Time Spent with Patient: Total time spent is greater than 50% in coordination of care (as documented) at patient's floor/unit and/or counseling patient: Coding Level of Care Code 61347 Subseq Hosp Care Lvl 3 Diagnoses Thrombocytopenia D69.6 Hypercalcemia E83.52 Aspergillus fumigatus B44.89 Pneumonia J18.9 Laterality: right Lung location: middle lobe of lung Pneumonia type: due to unspecified organism Acute and chronic respiratory failure with hypoxia J96.21 COPD exacerbation J44.1 Interstitial lung disease J84.9 Diabetes mellitus type 2, uncontrolled E11.65 Hemolytic anemia D59.1 Hemolytic anemia type: acquired, autoimmune, other CAD (coronary artery disease) I25.10 Coronary Disease-Associated Artery/Lesion type: [place] artery [place] vs. transplanted heart: [place] heart Associated angina: without angina Chronic systolic CHF (congestive heart failure) I50.22 CLL (chronic lymphocytic leukemia) C91.90 BPH (benign prostatic hyperplasia) N40.0 GERD without esophagitis K21.9 Hyperlipidemia E78.5 HTN (hypertension) I10 History of stroke Z86.73 Dysphagia R13.10 DVT prophylaxis Z29.9 (1) Pneumonia Laterality: right Lung location: middle lobe of lung Pneumonia type: due to unspecified organism Qualified Code(s): J18.9 - Pneumonia, unspecified organism (2) Hemolytic anemia Hemolytic anemia type: acquired, autoimmune, other Qualified Code(s): D59.1 - Other autoimmune hemolytic anemias (3) CAD (coronary artery disease) Coronary Disease-Associated Artery/Lesion type: [place] artery [place] vs. transplanted heart: [place] heart Associated angina: without angina Qualified Code(s): I25.10 - Atherosclerotic heart disease of [place] coronary artery without angina pectoris
[2019-09-18] MEDS: SODIUM CHLOR 7% 4 ML NEB NEB SCH ×2 (07:03→19:19)
[2019-09-18] MEDS: ALBUT/IPRATROP 3MG/0.5MG NEB 3 ML VIAL NEB SCH ×2 (07:03→19:19)
[2019-09-18 08:37] LABS: Hematocrit (blood only) 35.2 % (42-52); Hemoglobin 11.8 g/dL (14.0-18.0); Mean Corpuscular Hemoglobin 31.5 pg (25-34); Mean Corpuscular Hgb Conc 33.5 g/dL (32-36); Mean Corpuscular Volume 93.9 fL (80-100); RDW Coefficient of Variation 14.8 % (11.5-14.5); RDW Standard Deviation 51.3 fL (36.4-46.3); Red Blood Count 3.75 M/uL (4.7-6.1); White Blood Count 13.85 K/uL (4.8-10.8)
[2019-09-18 08:46] LABS: Platelet Count 52 K/uL (130-400)
[2019-09-18] MEDS: LOPERAMIDE HCL 2 MG CAP PO PRN (08:57)
[2019-09-18] MEDS: UMECLIDINIUM/VILANTEROL 62.5/25MCG 7 PUFFS/INHALER INH SCH (08:57)
[2019-09-18] MEDS: FOLIC ACID 1 MG TAB PO SCH (08:57)
[2019-09-18] MEDS: FINASTERIDE 5 MG TAB PO SCH (08:57)
[2019-09-18] MEDS: BENZONATATE 100 MG CAPSULE PO SCH ×3 (08:57→21:51)
[2019-09-18] MEDS: carvediloL 3.125 MG TAB PO SCH ×2 (08:57→21:50)
[2019-09-18] MEDS: SUCRALFATE 1 GM/10 ML UDC PO SCH ×4 (08:57→21:50)
[2019-09-18] MEDS: PANTOprazole 40 MG TAB PO SCH (08:57)
[2019-09-18] MEDS: ASPIRIN 81 MG ECTAB PO SCH (08:57)
[2019-09-18] MEDS: ASCORBIC ACID 500 MG TAB PO SCH (08:57)
[2019-09-18] MEDS: guaiFENesin 600 MG TABCR PO SCH ×2 (08:57→21:51)
[2019-09-18] MEDS: INSULIN ASPART 100 UNITS/ML 3 ML PEN SC SCH ×4 (08:57→21:51)
[2019-09-18] MEDS: MAGNESIUM OXIDE 400 MG TAB PO SCH (08:57)
[2019-09-18] MEDS: FUROSEMIDE 20 MG TAB PO SCH (08:57)
[2019-09-18] MEDS: FENOFIBRATE NANOCRYSTALLIZED 145 MG TABLET PO SCH (08:57)
[2019-09-18] MEDS: predniSONE 20 MG TAB PO SCH (08:57)
[2019-09-18] MEDS: NYSTATIN SUSP 500,000 U/5 ML UDC PO SCH ×4 (08:57→21:51)
[2019-09-18] MEDS: TERAZOSIN HCL 5 MG CAP PO SCH (08:57)
[2019-09-18] MEDS: INSULIN GLARGINE SOLOSTAR 100 UNITS/ML 3 ML PEN SC SCH ×2 (08:59→21:51)
[2019-09-18] MEDS: CITALOPRAM 20 MG TAB PO SCH (08:59)
[2019-09-18 09:02] LABS: BUN Creatinine Ratio 48.4 (10-20); Calcium 8.9 mg/dl (8.5-10.1); Creatinine Clr Calc Pharmacy 52.4 ml/min; Est GFR (African American) 68.6; Est GFR (Non-African American) 59.1; Potassium 4.5 mmol/L (3.5-5.1)
[2019-09-18 09:37] LABS: ALC (manual) 5.96 K/uL (1.2-3.4); ANC (manual) 5.46 K/uL (1.4-6.5); Blast # (manual) 0.36 K/uL (0-0); Blast Cells % (manual) 2.6 %; Dohle Bodies 1+; Large Granular Lymph # (manua 4.13 K/uL; Large Granular Lymph % (manual) 29.8 %; Lymphocytes # (manual) 1.83 K/uL (1.2-3.4); Lymphocytes % (manual) 13.2 %; Monocytes # (manual) 1.83 K/uL (0.11-0.59); Monocytes % (manual) 13.2 %; Myelocytes # (manual) 0.25 K/uL (0-0); Myelocytes % (manual) 1.8 %; Neutrophils # (manual) 5.46 K/uL (1.4-6.5); Neutrophils % (manual) 39.4 %
[2019-09-18] MEDS: SACCHAROMYCES BOULARDII 250 MG CAP PO SCH (14:41)
[2019-09-18] MEDS: LOPERAMIDE HCL 2 MG CAP PO SCH ×2 (17:16→23:08)
--- NOTE | 2019-09-18 20:59 | Hospitalist Progress Note ---
Date of Service September 18, 2019 Assessment & Plan (1) Thrombocytopenia: drop in platelets was acute, as platelets were normal at admission. the drop in platelets parallels the rapid rise in calcium. also has blasts on differential over past week HIT theoretically possible, Lovenox stopped, plts stable for four days, > 40 could be due to Rocephin which has been completed, but this is considered low likelihood DIC w/u negative (normal PT, PTT, fibrinogen) peripheral smear without smudge cells, just some abnormal PMNs, can be seen in several conditions thus TTP unlikely with his history of CLL, could be changing to MDS, LDH very high which has been cause for concern in the past Dr. Cash met with patient, he does not feel the CLL is causing the thrombocytopenia no signs of bleeding/bruising unsure that he would do well with platelet transfusion as his lungs already have fluid on them continue to follow CBC daily, no treatment planned for platelets, just monitor plts are 52 today, rising slowly (2) Hypercalcemia: down to 8.9 today, corrected for albumin it is 10 treated with Zometa 4mg IV x 1, IV fluids (which are now stopped) no further IV Lasix continue PO Lasix daily, Cr is stable PTH low, vitamin D low, PTH-related peptide still pending repeat BMP in the morning (3) Aspergillus fumigatus: sputum culture from 09/08 grew out Aspergillus Aspergillus antibodies and Beta 1,3 D Glucan sent out, results still pending likely colonization given his chronic lung disease consulted ID from [employer] [facility] for their opinion, agreed that likely colonization no signs of active fungal infection on CT chest stop Voriconazole (4) Pneumonia: RML. CXR 09/08 with b/l infiltrates -- uncertain if b/l infiltrates are from infection vs ILD. completed full 7 day course of IV rocephin. completed 5 day course of zithromax. Blood cx's negative. COVID-19 negative. cont tessalon, mucinex, incentive maria ines, and flutter valve for pulmonary toilet. added vibratory vest treatments to try to mobilize fluids Sputum gram stain with moderate GNR but culture grew aspergillus - likely colonized after discussing with pulmonology confirmed this with [facility] service discussed with patient at the bedside with his present, he said that he would NOT want intubated and placed on ventilator if he deteriorated he would NOT want heroic measures if his heart would stop changed to DNR/DNI on 09/14 will take respiratory status day by day, family understands he could stay the same, could get better, could get worse will move towards palliative approach at home, will likely go home on hospice on Friday asked CM to work on getting him home nebulizer, vibratory vest, hospital bed (5) Acute and chronic respiratory failure with hypoxia: 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 Baseline NC O2 requirements 4-5 L. 09/14: ABG with pH 7.4, CO2 50's, paO2 100's breathing is stable on 4L for several days, able to ambulate to the bathroom working with therapy breathing will only get worse slowly, could rapidly decline with another pneumonia will plan for home hospice (6) COPD exacerbation: Prednisone 40mg daily with slow taper on discharge cont nebs BID PRN, no wheezing for several days pulm toilet. supportive care. no further antibiotics (7) Interstitial lung disease: as seen on chest CT this admission on chronic prednisone for AIHA as well as his lung disease this is likely idiopathic hospice care (8) Diabetes mellitus type 2, uncontrolled: control adequate with lantus/novolog adjust as needed (9) 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 at home for such H/H stable all week, no hemolysis on peripheral smear prednisone sent out haptoglobin (pending), LDH is high, bili is up slightly at 1.5 (10) CAD (coronary artery disease): no evidence of ischemia cont asa, coreg, plavix, lasix, MICH he is statin intolerant (11) Chronic systolic CHF (congestive heart failure): EF 45-50% remains compensated cont BB cont MICH cont lasix 20mg daily (12) CLL (chronic lymphocytic leukemia): noted follows with heme/onc, [facility] daily CBC concomitant autoimmune hemolytic anemia Dr. Cash following (13) BPH (benign prostatic hyperplasia): cont finasteride cont terazosin (14) GERD without esophagitis: cont PPI (15) Hyperlipidemia: statin intolerant (16) HTN (hypertension): cont home meds controlled (17) History of stroke: cont asa for secondary prevention Plavix (18) Dysphagia: candidiasis?? added nystatin 5cc ac/hs swish/swallow speech consult appreciated video swallow showed no aspiration change diet to minced/moist, no straws, aspiration precautions (19) DVT prophylaxis: lovenox 40mg daily - on hold, last dose was 09/10 use SCD while in bed cont PT/OT plan for home with hospice on Tuesday 09/19 Admission and Anticipated Discharge Date Admission Date: September 06, 2019 Subjective patient trying to eat a little more, he is sick of the food here, almost in hospital for two weeks having issues with diarrhea, will make Imodium scheduled, add Questran, stop Mag oxide, add Florastor was already C diff negative labs are all stable, plts up slightly at 52, Cr and electrolytes stable discussed with family at the bedside about going home on hospice Friday they will need equipment delivered he denies chest pain, fever/chills, nausea/vomiting admits to increased shortness of breath with exertion today all he wants to do is go home Review of Systems Review of Systems: All systems reviewed & are unremarkable except as noted in Subjective Physical Exam Constitutional: well developed, well nourished and + frail appearing; no acute distress Eyes: PERRL, conjunctivae normal, anicteric sclerae ENMT: external ear and nose normal, oropharynx normal Neck: trachea midline, no thyromegaly Respiratory: + cough (wet cough, rattling in back of throat); no respiratory distress Auscultation: + rhonchi; no wheezes Cardiovascular: RRR, no murmur, no edema Gastrointestinal (Abdomen): normal bowel sounds, soft, nontender, no h epatosplenomegaly Musculoskeletal: no cyanosis or clubbing, extremities motor strength 5/5 Skin: no rashes, warm and dry Neurologic: patellar DTR's 2+ bilat, sensation intact and PERRL, EOMI, accommodation nl, no face palsy, no dysarthria Psychiatric: A+Ox3, euthymic affect Lymphatic: no cervical or axillary lymphadenopathy Results & Data Results & Data ([facility]) Vital Signs (Past 12 Hours) Vital Signs Temp Pulse Pulse Resp BP Pulse Ox 09/18/19 19:59 37.1 C 92 H 20 115/63 94 09/18/19 19:19 83 18 95 09/18/19 15:50 93 H 09/18/19 15:46 36.6 C 97 H 18 114/70 98 09/18/19 11:16 36.9 C 95 H 18 107/48 L 97 Laboratory Results Laboratory Results - last 24 hr 09/18/19 09/18/19 09/18/19 07:28 08:25 08:25 WBC 13.85 H RBC 3.75 L Hgb 11.8 L Hct 35.2 L MCV 93.9 MCH 31.5 MCHC 33.5 RDW Std Deviation 51.3 H RDW Coeff of Ra 14.8 H Plt Count 52 L MPV 11.0 H Neutrophils % (Manual) 39.4 Lymphocytes % (Manual) 13.2 Monocytes % (Manual) 13.2 Myelocytes % (Man) 1.8 Blast Cells % (Manual) 2.6 Neutrophils # (Manual) 5.46 Total Absolute Neuts 5.46 Lymphocytes # (Manual) 1.83 Total Abs Lymphocytes 5.96 H Monocytes # (Manual) 1.83 H Myelocytes # (Manual) 0.25 H Blast Cells # (Man) 0.36 H Large Granular Lymphs 29.8 # Lrg Granular Lymphs 4.13 Dohle Bodies 1+ Sodium 136 Potassium 4.5 Chloride 98 Carbon Dioxide 34 H Anion Gap 4.0 BUN 56 H Creatinine 1.16 Est Cr Clr Drug Dosing 52.4 Est GFR ( Amer) 68.6 Est GFR (Non-Af Amer) 59.1 BUN/Creatinine Ratio 48.4 H Glucose 191 H POC Glucose 184 H Calcium 8.9 Lactate Dehydrogenase 09/18/19 09/18/19 09/18/19 08:25 11:14 16:52 WBC RBC Hgb Hct MCV MCH MCHC RDW Std Deviation RDW Coeff of Ra Plt Count MPV Neutrophils % (Manual) Lymphocytes % (Manual) Monocytes % (Manual) Myelocytes % (Man) Blast Cells % (Manual) Neutrophils # (Manual) Total Absolute Neuts Lymphocytes # (Manual) Total Abs Lymphocytes Monocytes # (Manual) Myelocytes # (Manual) Blast Cells # (Man) Large Granular Lymphs # Lrg Granular Lymphs Dohle Bodies Sodium Potassium Chloride Carbon Dioxide Anion Gap BUN Creatinine Est Cr Clr Drug Dosing Est GFR ( Amer) Est GFR (Non-Af Amer) BUN/Creatinine Ratio Glucose POC Glucose 257 H 194 H Calcium Lactate Dehydrogenase 8127 H 09/18/19 20:29 WBC RBC Hgb Hct MCV MCH MCHC RDW Std Deviation RDW Coeff of Ra Plt Count MPV Neutrophils % (Manual) Lymphocytes % (Manual) Monocytes % (Manual) Myelocytes % (Man) Blast Cells % (Manual) Neutrophils # (Manual) Total Absolute Neuts Lymphocytes # (Manual) Total Abs Lymphocytes Monocytes # (Manual) Myelocytes # (Manual) Blast Cells # (Man) Large Granular Lymphs # Lrg Granular Lymphs Dohle Bodies Sodium Potassium Chloride Carbon Dioxide Anion Gap BUN Creatinine Est Cr Clr Drug Dosing Est GFR ( Amer) Est GFR (Non-Af Amer) BUN/Creatinine Ratio Glucose POC Glucose 253 H Calcium Lactate Dehydrogenase Medications Administered Current Inpatient Medications Acetaminophen (Tylenol) 650 mg PO Q4H PRN PRN Reason: Pain or Fever Stop: 10/06/19 22:03 Albuterol (Duoneb) 3 ml NEB BIDR [facility] Stop: 10/18/19 18:59 Last Admin: 09/18/19 19:19 Dose: 3 ml Documented by: Alprazolam (Xanax) 0.25 mg PO BID PRN PRN Reason: anxiety Stop: 10/06/19 22:03 Ascorbic Acid (Vitamin C) 500 mg PO DAILY [facility] Stop: 10/07/19 08:59 Last Admin: 09/18/19 08:57 Dose: 500 mg Documented by: Aspirin (Ecotrin Ectab) 81 mg PO DAILY [facility] Stop: 10/07/19 08:59 Last Admin: 09/18/19 08:57 Dose: 81 mg Documented by: Atorvastatin Calcium (Lipitor) 40 mg PO HS [facility] Stop: 10/06/19 22:03 Last Admin: 09/17/19 21:19 Dose: 40 mg Documented by: Benzonatate (Tessalon Perle) 100 mg PO TID [facility] Stop: 10/07/19 13:59 Last Admin: 09/18/19 13:22 Dose: 100 mg Documented by: Carvedilol (Coreg) 3.125 mg PO BID [facility] Stop: 10/06/19 22:03 Last Admin: 09/18/19 08:57 Dose: 3.125 mg Documented by: Cholestyramine Resin (Questran) 4 gm PO BID@1000,2200 [facility] Stop: 10/18/19 21:59 Citalopram Hydrobromide (Celexa) 20 mg PO DAILY [facility] Stop: 10/07/19 08:59 Last Admin: 09/18/19 08:59 Dose: 20 mg Documented by: Dextrose (Dextrose 50%) 25 - 50 ml IV UD PRN; Protocol PRN Reason: Hypoglycemia Protocol Stop: 10/06/19 22:03 Fenofibrate (Tricor) 145 mg PO DAILY [facility] Stop: 10/07/19 08:59 Last Admin: 09/18/19 08:57 Dose: 145 mg Documented by: Finasteride (Proscar) 5 mg PO DAILY [facility] Stop: 10/07/19 08:59 Last Admin: 09/18/19 08:57 Dose: 5 mg Documented by: Folic Acid (Folvite) 1 mg PO DAILY [facility] Stop: 10/07/19 08:59 Last Admin: 09/18/19 08:57 Dose: 1 mg Documented by: Furosemide (Lasix) 20 mg PO DAILY [facility] Stop: 10/07/19 08:59 Last Admin: 09/18/19 08:57 Dose: 20 mg Documented by: Glucagon (Glucagen) 1 mg SQ UD PRN; Protocol PRN Reason: Hypoglycemia Protocol Stop: 10/06/19 22:03 Glucose (Dex4 Glucose) 4 - 8 tabs PO UD PRN; Protocol PRN Reason: Hypoglycemia Protocol Stop: 10/06/19 22:03 Glucose (Glucose 40%) 15 - 30 gm PO UD PRN; Protocol PRN Reason: Hypoglycemia Protocol Stop: 10/06/19 22:03 Guaifenesin (Mucinex) 1,200 mg PO Q12 [facility] Stop: 10/07/19 11:44 Last Admin: 09/18/19 08:57 Dose: 1,200 mg Documented by: Insulin Aspart (Novolog Flexpen) 0 units SC ACHS [facility] Stop: 10/06/19 22:03 Last Admin: 09/18/19 17:12 Dose: 4 units Documented by: Insulin Glargine (Lantus Solostar Pen) 30 units SC BID [facility] Stop: 10/16/19 20:59 Last Admin: 09/18/19 08:59 Dose: 30 units Documented by: Lisinopril (Zestril) 10 mg PO DAILY [facility] Stop: 10/07/19 08:59 Last Admin: 09/09/19 07:37 Dose: 10 mg Documented by: Loperamide HCl (Imodium) 2 mg PO Q6 [facility] Stop: 10/18/19 17:59 Last Admin: 09/18/19 17:16 Dose: 2 mg Documented by: Menthol (Nice) 1 darell BUCCAL PRN PRN PRN Reason: Cough Stop: 10/09/19 04:09 Miscellaneous (Carbohydrates For Hypoglycemia) 15 - 30 gm PO UD PRN PRN Reason: Hypoglycemia Protocol Stop: 10/06/19 22:03 Last Admin: 09/11/19 16:23 Dose: 15 gm Documented by: Nystatin (Mycostatin) 5 ml PO QID [facility] Stop: 09/21/19 20:59 Last Admin: 09/18/19 17:14 Dose: 5 ml Documented by: Pantoprazole Sodium (Protonix) 40 mg PO DAILY [facility] Stop: 10/07/19 08:59 Last Admin: 09/18/19 08:57 Dose: 40 mg Documented by: Prednisone (Prednisone) 40 mg PO QAM [facility] Stop: 10/18/19 08:59 Last Admin: 09/18/19 08:57 Dose: 40 mg Documented by: Saccharomyces Boulardii (Florastor) 250 mg PO DAILY [facility] Stop: 10/18/19 14:14 Last Admin: 09/18/19 14:41 Dose: 250 mg Documented by: Sodium Chloride (Sodium Chlor 7% Neb Solution) 4 ml NEB BIDR [facility] Stop: 10/12/19 18:59 Last Admin: 09/18/19 19:19 Dose: 4 ml Documented by: Sucralfate (Carafate) 1 gm PO QID [facility] Stop: 10/11/19 20:59 Last Admin: 09/18/19 17:14 Dose: 1 gm Documented by: Terazosin HCl (Hytrin) 5 mg PO DAILY [facility] Stop: 10/07/19 08:59 Last Admin: 09/18/19 08:57 Dose: 5 mg Documented by: Umeclidinium/Vilanterol (Anoro Ellipta 62.5/25 Mcg Inh) 1 puffs INH DAILY [facility] Stop: 10/12/19 16:14 Last Admin: 09/18/19 08:57 Dose: 1 puffs Documented by: PG Care Time/CCT Total # of Minutes Spent Total Time Spent with Patient: Total time spent is greater than 50% in coordination of care (as documented) at patient's floor/unit and/or counseling patient: Coding Level of Care Code 22603 Subseq Hosp Care Lvl 3 Diagnoses Thrombocytopenia D69.6 Hypercalcemia E83.52 Aspergillus fumigatus B44.89 Pneumonia J18.9 Laterality: right Lung location: middle lobe of lung Pneumonia type: due to unspecified organism Acute and chronic respiratory failure with hypoxia J96.21 COPD exacerbation J44.1 Interstitial lung disease J84.9 Diabetes mellitus type 2, uncontrolled E11.65 Hemolytic anemia D59.1 Hemolytic anemia type: acquired, autoimmune, other CAD (coronary artery disease) I25.10 Coronary Disease-Associated Artery/Lesion type: [place] artery [place] vs. transplanted heart: [place] heart Associated angina: without angina Chronic systolic CHF (congestive heart failure) I50.22 CLL (chronic lymphocytic leukemia) C91.90 BPH (benign prostatic hyperplasia) N40.0 GERD without esophagitis K21.9 Hyperlipidemia E78.5 HTN (hypertension) I10 History of stroke Z86.73 Dysphagia R13.10 DVT prophylaxis Z29.9 (1) Pneumonia Laterality: right Lung location: middle lobe of lung Pneumonia type: due to unspecified organism Qualified Code(s): J18.9 - Pneumonia, unspecified organism (2) Hemolytic anemia Hemolytic anemia type: acquired, autoimmune, other Qualified Code(s): D59.1 - Other autoimmune hemolytic anemias (3) CAD (coronary artery disease) Coronary Disease-Associated Artery/Lesion type: [place] artery [place] vs. transplanted heart: [place] heart Associated angina: without angina Qualified Code(s): I25.10 - Atherosclerotic heart disease of [place] coronary artery without angina pectoris
[2019-09-18] MEDS: ATORVASTATIN 40 MG TAB PO SCH (21:51)
[2019-09-18] MEDS: CHOLESTYRAMINE LIGHT 4 GM PKT PO SCH (23:08)
[2019-09-19] MEDS: LOPERAMIDE HCL 2 MG CAP PO SCH ×4 (06:33→21:23)
[2019-09-19] MEDS: SODIUM CHLOR 7% 4 ML NEB NEB SCH (07:06)
[2019-09-19] MEDS: ALBUT/IPRATROP 3MG/0.5MG NEB 3 ML VIAL NEB SCH (07:06)
[2019-09-19] MEDS ORDERED: ONDANSETRON INJ 2 MG/ML 2 ML VIAL IV STA (07:48)
[2019-09-19 08:06] LABS: Hematocrit (blood only) 32.5 % (42-52); Hemoglobin 10.9 g/dL (14.0-18.0); Mean Corpuscular Hemoglobin 31.3 pg (25-34); Mean Corpuscular Hgb Conc 33.5 g/dL (32-36); Mean Corpuscular Volume 93.4 fL (80-100); RDW Coefficient of Variation 14.9 % (11.5-14.5); RDW Standard Deviation 50.6 fL (36.4-46.3); Red Blood Count 3.48 M/uL (4.7-6.1); White Blood Count 9.25 K/uL (4.8-10.8)
[2019-09-19 08:08] LABS: Mean Platelet Volume 10.2 fL (7.4-10.4); Platelet Count 42 K/uL (130-400)
[2019-09-19 08:30] LABS: BUN Creatinine Ratio 55.9 (10-20); Calcium 8.6 mg/dl (8.5-10.1); Creatinine Clr Calc Pharmacy 57.4 ml/min; Est GFR (African American) 76.4; Magnesium 2.5 mg/dl (1.8-2.4); Potassium 4.4 mmol/L (3.5-5.1)
[2019-09-19] MEDS: SUCRALFATE 1 GM/10 ML UDC PO SCH ×4 (08:33→22:20)
[2019-09-19] MEDS: NYSTATIN SUSP 500,000 U/5 ML UDC PO SCH ×4 (08:33→22:21)
[2019-09-19] MEDS: guaiFENesin 600 MG TABCR PO SCH ×2 (08:33→21:23)
[2019-09-19] MEDS: carvediloL 3.125 MG TAB PO SCH ×2 (08:33→22:21)
[2019-09-19] MEDS: FENOFIBRATE NANOCRYSTALLIZED 145 MG TABLET PO SCH (08:34)
[2019-09-19] MEDS: CITALOPRAM 20 MG TAB PO SCH (08:34)
[2019-09-19] MEDS: FUROSEMIDE 20 MG TAB PO SCH (08:34)
[2019-09-19] MEDS: TERAZOSIN HCL 5 MG CAP PO SCH (08:34)
[2019-09-19] MEDS: BENZONATATE 100 MG CAPSULE PO SCH ×3 (08:34→21:23)
[2019-09-19] MEDS: predniSONE 20 MG TAB PO SCH (08:34)
[2019-09-19] MEDS: PANTOprazole 40 MG TAB PO SCH (08:34)
[2019-09-19] MEDS: FOLIC ACID 1 MG TAB PO SCH (08:34)
[2019-09-19] MEDS: FINASTERIDE 5 MG TAB PO SCH (08:35)
[2019-09-19] MEDS: SACCHAROMYCES BOULARDII 250 MG CAP PO SCH (08:35)
[2019-09-19] MEDS: ASPIRIN 81 MG ECTAB PO SCH (08:35)
[2019-09-19] MEDS: ASCORBIC ACID 500 MG TAB PO SCH (08:35)
[2019-09-19] MEDS: INSULIN GLARGINE SOLOSTAR 100 UNITS/ML 3 ML PEN SC SCH ×2 (08:35→22:21)
[2019-09-19] MEDS: INSULIN ASPART 100 UNITS/ML 3 ML PEN SC SCH ×4 (08:36→22:21)
[2019-09-19] MEDS: UMECLIDINIUM/VILANTEROL 62.5/25MCG 7 PUFFS/INHALER INH SCH (08:37)
[2019-09-19] MEDS ORDERED: MoRPHine SULFATE 5 MG/0.25 ML UDP PO PRN (11:27)
[2019-09-19] MEDS: CHOLESTYRAMINE LIGHT 4 GM PKT PO SCH ×2 (11:29→22:21)
[2019-09-19 12:26] LABS: Hematocrit (blood only) 32.2 % (42-52); Hemoglobin 10.9 g/dL (14.0-18.0); Mean Corpuscular Volume 94.4 fL (80-100); Nucleated RBC # (auto) 0.02 K/uL (0-0); Nucleated RBC % (auto) 0.2 %; RDW Coefficient of Variation 14.9 % (11.5-14.5); RDW Standard Deviation 50.7 fL (36.4-46.3); Red Blood Count 3.41 M/uL (4.7-6.1); White Blood Count 12.37 K/uL (4.8-10.8)
[2019-09-19 12:36] LABS: Mean Corpuscular Hgb Conc 33.9 g/dL (32-36); Mean Platelet Volume 10.5 fL (7.4-10.4); Platelet Count 52 K/uL (130-400)
[2019-09-19 12:46] LABS: Albumin Level 2.6 gm/dl (3.4-5.0); BUN Creatinine Ratio 56.3 (10-20); Calcium 8.3 mg/dl (8.5-10.1); Creatinine Clr Calc Pharmacy 56.3 ml/min; Est GFR (African American) 74.7; Est GFR (Non-African American) 64.5; Potassium 4.9 mmol/L (3.5-5.1)
[2019-09-19 12:52] LABS: Albumin Globulin Ratio 0.8 (0.9-2); Bilirubin,Total 1.4 mg/dl (0.2-1); Globulin 3.3 gm/dl (2.5-4.0); Total Protein 5.9 gm/dl (6.4-8.2); Troponin I 0.059 ng/ml (0-0.045)
--- NOTE | 2019-09-19 16:23 | Electrocardiogram Report ---
Test Reason : Blood Pressure : / mmHG Vent. Rate : 101 BPM Atrial Rate : 101 BPM P-R Int : 218 ms QRS Dur : 154 ms QT Int : 350 ms P-R-T Axes : 024 -60 071 degrees QTc Int : 453 ms Sinus tachycardia with 1st degree A-V block with Premature atrial complexes with Aberrant conduction Left axis deviation Right bundle branch block Poor R wave progression, consider anterior CT vs. lead placement vs. LVH Inferior infarct (cited on or before 28-JUN-2016) Abnormal ECG When compared with ECG of 06-SEP-2019 14:27, QT has shortened Confirmed by Chinedu Molina ([id number]) on 09/19/2019 4:23:37 PM Referred By: REFERRED SELF Confirmed By:Gary Molina
--- NOTE | 2019-09-19 21:44 | Hospitalist Progress Note ---
Date of Service September 19, 2019 Assessment & Plan (1) Acute and chronic respiratory failure with hypoxia: 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 Baseline NC O2 requirements 4-5 L. 8/5: ABG with pH 7.4, CO2 50's, paO2 100's breathing had been stable on 4L, now requiring 6L this evening more work of breathing today, not tolerating treatments stop hypertonic saline, stop nebulizers, stop vibratory vest comfort measures in place no lab draws, no vitals, stop all medications that do not provide comfort Roxanol 5mg q4 PRN, add Morphine 2mg IV q4 PRN, Ativan IV PRN if patient continues to decline, plan for morphine drip tomorrow and remain in hospital on palliative care do not feel he would be safe to transport home, [address] home to [place] family not even sure they could get hospital bed tomorrow entire family came in to see the patient today, saying their goodbyes keep in PCU tonight just because it is late, if transitioning to inpatient hospice then transfer to medical floor, private room (2) Thrombocytopenia: drop in platelets was acute, as platelets were normal at admission. the drop in platelets parallels the rapid rise in calcium. also has blasts on differential over past week HIT theoretically possible, Lovenox stopped, plts stable for five days, > 40 could be due to Rocephin which has been completed, but this is considered low likelihood DIC w/u negative (normal PT, PTT, fibrinogen) peripheral smear without smudge cells, just some abnormal PMNs, can be seen in several conditions thus TTP unlikely with his history of CLL, could be changing to MDS, LDH very high which has been cause for concern in the past Dr. Cash met with patient, he does not feel the CLL is causing the thrombocytopenia no signs of bleeding/bruising unsure that he would do well with platelet transfusion as his lungs already have fluid on them continue to follow CBC daily, no treatment planned for platelets, just monitor plts are 42 this morning, no further lab draws, plan for hospice (3) Hypercalcemia: down to 8.3 today treated with Zometa 4mg IV x 1, IV fluids (which are now stopped) no further IV Lasix continue PO Lasix daily, Cr is stable PTH low, vitamin D low, PTH-related peptide low no further labs, palliative approach (4) Aspergillus fumigatus: sputum culture from 09/08 grew out Aspergillus Aspergillus antibodies and Beta 1,3 D Glucan sent out, results still pending likely colonization given his chronic lung disease consulted ID from [facility] for their opinion, agreed that likely colonization no signs of active fungal infection on CT chest stop Voriconazole fungal pneumonia RULED OUT (5) Pneumonia: RML. CXR 09/08 with b/l infiltrates -- uncertain if b/l infiltrates are from infection vs ILD. completed full 7 day course of IV rocephin. completed 5 day course of zithromax. Blood cx's negative. COVID-19 negative. stop all nebulizers, inhaled treatments, vibratory vest as patient's status declining comfort measures Sputum gram stain with moderate GNR but culture grew aspergillus - likely colonized after discussing with pulmonology confirmed this with [facility] service discussed with patient at the bedside with his present, he said that he would NOT want intubated and placed on ventilator if he deteriorated he would NOT want heroic measures if his heart would stop changed to DNR/DNI on 09/14 (6) COPD exacerbation: Prednisone 40mg daily, will stop now cont nebs BID PRN, no wheezing for several days pulm toilet. supportive care. 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 Cash following (13) BPH (benign prostatic hyperplasia): cont finasteride cont terazosin (14) GERD without esophagitis: cont PPI (15) Hyperlipidemia: statin intolerant (16) HTN (hypertension): cont home meds controlled (17) History of stroke: cont asa for secondary prevention Plavix (18) Dysphagia: candidiasis?? added nystatin 5cc ac/hs swish/swallow speech consult appreciated video swallow showed no aspiration change diet to minced/moist, no straws, aspiration precautions (19) DVT prophylaxis: lovenox 40mg daily - on hold, last dose was 09/10 use SCD while in bed cont PT/OT plan for home with hospice on Tuesday 09/19 Admission and Anticipated Discharge Date Admission Date: September 06, 2019 Subjective patient feeling very tired this morning and then became very agitated, did not want to even look at food said he was going home, could not stay here a minute longer he was given Xanax for his anxiety as he uses that at home later in the morning he was attempting to stand up because he had to have a BM and wanted to walk to the toilet he had just stood up and he became weak, diaphoretic, eyes rolled back in his head, he was lowered to the bed and he was unresponsive, having tremors abhishek perkins was called and I arrived to find the patient laying on his back, staring up at the ceiling, minimally responsive to questions blood pressure in 100's systolic, HR in the 100's, RR in the high 20's, 99% on 4L mask EKG with RBB and LBB, could not interpret for ischemic changes, troponin 0.05, lactic acid normal, electrolytes stable, Cr at baseline after a few minutes the patient started talking more, he said he remembered feeling dizzy and weak he had a large, soft BM in his diaper so he probably had a vasovagal episode during the remainder of the day his breathing became more labored, sleeping a lot called his whole family in to the bedside, talked about prognosis the plan for the past few days was to get him home on hospice, now I have concerns about getting him home, has a [address] I think he is becoming more appropriate for inpatient hospice he has not really eaten for 5 days, minimal fluid intake, more short of breath not even a definite that equipment could be delivered tomorrow, main item family would need would be hospital bed discussed with , 3 daughters and son that he may deteriorate over night, if so we can start Morphine drip tomorrow we should likely start morphine drip as he is transitioning to a dying phase unless he is very bright and alert tomorrow and wants to go home, would plan to transition to comfort care tomorrow AM no lab draws in the morning Review of Systems Review of Systems: All systems reviewed & are unremarkable except as noted in Subjective Constitutional: + fatigue, + weakness and + daytime sleepiness; no fever Respiratory: + cough and + dyspnea Cardiovascular: + syncope; no chest pain and no edema Gastrointestinal: + early satiety (no appetite at all); no abdominal pain Musculoskeletal: + muscle weakness (diffuse) Psychiatric: + irritability and + anxiety Physical Exam Constitutional: well developed, well nourished and + frail appearing Eyes: PERRL, conjunctivae normal, anicteric sclerae ENMT: external ear and nose normal, oropharynx normal Neck: trachea midline, no thyromegaly Respiratory: + labored breathing, + uses accessory muscles and + cough (wet cough, rattling in back of throat) Auscultation: + rhonchi; no wheezes Cardiovascular: Rate/Rhythm: regular rhythm and + tachycardic Heart Sounds: normal S1 and normal S2; no murmur Vessels: no JVD Extremities: normal capillary refill; no edema Gastrointestinal (Abdomen): normal bowel sounds, soft, nontender, no hepatosplenomegaly Musculoskeletal: Head/Neck/Chest: normocephalic, head atraumatic and neck supple Extremities: + abnormal strength (generalized weakness) Skin: no rashes, warm and dry Neurologic: normal touch/pain/proprioception, CN's II-XI intact bilaterally and awake (sleepy throughout day); no focal motor deficits Psychiatric: Orientation: oriented to person and oriented to place; + not oriented to time Lymphatic: no cervical or axillary lymphadenopathy Results & Data Results & Data ([facility]) Vital Signs (Past 12 Hours) Vital Signs Temp Pulse Pulse Resp BP Pulse Ox 09/19/19 20:00 36.6 C 93 H 22 105/58 L 94 09/19/19 16:00 93 H 09/19/19 15:33 37.2 C 93 H 20 97/57 L 99 09/19/19 11:04 37.6 C H 102 H 22 117/67 98 Laboratory Results Laboratory Results - last 24 hr 09/19/19 09/19/19 09/19/19 07:08 07:55 07:55 WBC 9.25 RBC 3.48 L Hgb 10.9 L Hct 32.5 L MCV 93.4 MCH 31.3 MCHC 33.5 RDW Std Deviation 50.6 H RDW Coeff of Ra 14.9 H Plt Count 42 L MPV 10.2 Absolute Nucleated RBC Nucleated RBC % (auto) Sodium 135 L Potassium 4.4 Chloride 97 L Carbon Dioxide 36 H Anion Gap 2.0 L BUN 59 H Creatinine 1.06 Est Cr Clr Drug Dosing 57.4 Est GFR ( Amer) 76.4 Est GFR (Non-Af Amer) 66.0 BUN/Creatinine Ratio 55.9 H Glucose 117 H POC Glucose 133 H Lactate Calcium 8.6 Magnesium 2.5 H Total Bilirubin AST ALT Alkaline Phosphatase Troponin I Total Protein Albumin Globulin Albumin/Globulin Ratio 09/19/19 09/19/19 09/19/19 11:03 12:11 12:11 WBC 12.37 H RBC 3.41 L Hgb 10.9 L Hct 32.2 L MCV 94.4 MCH 32.0 MCHC 33.9 RDW Std Deviation 50.7 H RDW Coeff of Ra 14.9 H Plt Count 52 L MPV 10.5 H Absolute Nucleated RBC 0.02 H Nucleated RBC % (auto) 0.2 Sodium 137 Potassium 4.9 Chloride 98 Carbon Dioxide 32 Anion Gap 7.0 BUN 61 H Creatinine 1.08 Est Cr Clr Drug Dosing 56.3 Est GFR ( Amer) 74.7 Est GFR (Non-Af Amer) 64.5 BUN/Creatinine Ratio 56.3 H Glucose 144 H POC Glucose 161 H Lactate Calcium 8.3 L Magnesium Total Bilirubin 1.4 H AST 106 H ALT 18 Alkaline Phosphatase 72 Troponin I 0.059 H* Total Protein 5.9 L Albumin 2.6 L Globulin 3.3 Albumin/Globulin Ratio 0.8 L 09/19/19 09/19/19 09/19/19 12:34 16:07 20:35 WBC RBC Hgb Hct MCV MCH MCHC RDW Std Deviation RDW Coeff of Ra Plt Count MPV Absolute Nucleated RBC Nucleated RBC % (auto) Sodium Potassium Chloride Carbon Dioxide Anion Gap BUN Creatinine Est Cr Clr Drug Dosing Est GFR ( Amer) Est GFR (Non-Af Amer) BUN/Creatinine Ratio Glucose POC Glucose 114 H 107 H Lactate 1.5 Calcium Magnesium Total Bilirubin AST ALT Alkaline Phosphatase Troponin I Total Protein Albumin Globulin Albumin/Globulin Ratio Medications Administered Current Inpatient Medications Acetaminophen (Tylenol) 650 mg PO Q4H PRN PRN Reason: Pain or Fever Stop: 10/06/19 22:03 Alprazolam (Xanax) 0.25 mg PO BID PRN PRN Reason: anxiety Stop: 10/06/19 22:03 Last Admin: 09/19/19 08:49 Dose: 0.25 mg Documented by: Ascorbic Acid (Vitamin C) 500 mg PO DAILY [facility] Stop: 10/07/19 08:59 Last Admin: 09/19/19 08:35 Dose: 500 mg Documented by: Aspirin (Ecotrin Ectab) 81 mg PO DAILY [facility] Stop: 10/07/19 08:59 Last Admin: 09/19/19 08:35 Dose: 81 mg Documented by: Atorvastatin Calcium (Lipitor) 40 mg PO HS [facility] Stop: 10/06/19 22:03 Last Admin: 09/18/19 21:51 Dose: 40 mg Documented by: Benzonatate (Tessalon Perle) 100 mg PO TID [facility] Stop: 10/07/19 13:59 Last Admin: 09/19/19 21:23 Dose: 100 mg Documented by: Carvedilol (Coreg) 3.125 mg PO BID [facility] Stop: 10/06/19 22:03 Last Admin: 09/19/19 08:33 Dose: 3.125 mg Documented by: Cholestyramine Resin (Questran) 4 gm PO BID@1000,2200 [facility] Stop: 10/18/19 21:59 Last Admin: 09/19/19 11:29 Dose: 4 gm Documented by: Citalopram Hydrobromide (Celexa) 20 mg PO DAILY [facility] Stop: 10/07/19 08:59 Last Admin: 09/19/19 08:34 Dose: 20 mg Documented by: Dextrose (Dextrose 50%) 25 - 50 ml IV UD PRN; Protocol PRN Reason: Hypoglycemia Protocol Stop: 10/06/19 22:03 Fenofibrate (Tricor) 145 mg PO DAILY [facility] Stop: 10/07/19 08:59 Last Admin: 09/19/19 08:34 Dose: 145 mg Documented by: Finasteride (Proscar) 5 mg PO DAILY [facility] Stop: 10/07/19 08:59 Last Admin: 09/19/19 08:35 Dose: 5 mg Documented by: Folic Acid (Folvite) 1 mg PO DAILY [facility] Stop: 10/07/19 08:59 Last Admin: 09/19/19 08:34 Dose: 1 mg Documented by: Furosemide (Lasix) 20 mg PO DAILY [facility] Stop: 10/07/19 08:59 Last Admin: 09/19/19 08:34 Dose: 20 mg Documented by: Glucagon (Glucagen) 1 mg SQ UD PRN; Protocol PRN Reason: Hypoglycemia Protocol Stop: 10/06/19 22:03 Glucose (Dex4 Glucose) 4 - 8 tabs PO UD PRN; Protocol PRN Reason: Hypoglycemia Protocol Stop: 10/06/19 22:03 Glucose (Glucose 40%) 15 - 30 gm PO UD PRN; Protocol PRN Reason: Hypoglycemia Protocol Stop: 10/06/19 22:03 Guaifenesin (Mucinex) 1,200 mg PO Q12 [facility] Stop: 10/07/19 11:44 Last Admin: 09/19/19 21:23 Dose: 1,200 mg Documented by: Insulin Aspart (Novolog Flexpen) 0 units SC ACHS [facility] Stop: 10/06/19 22:03 Last Admin: 09/19/19 16:44 Dose: Not Given Documented by: Insulin Glargine (Lantus Solostar Pen) 30 units SC BID [facility] Stop: 10/16/19 20:59 Last Admin: 09/19/19 08:35 Dose: 30 units Documented by: Lisinopril (Zestril) 10 mg PO DAILY [facility] Stop: 10/07/19 08:59 Last Admin: 09/09/19 07:37 Dose: 10 mg Documented by: Loperamide HCl (Imodium) 2 mg PO Q6 [facility] Stop: 10/18/19 17:59 Last Admin: 09/19/19 21:23 Dose: 2 mg Documented by: Menthol (Nice) 1 darell BUCCAL PRN PRN PRN Reason: Cough Stop: 10/09/19 04:09 Miscellaneous (Carbohydrates For Hypoglycemia) 15 - 30 gm PO UD PRN PRN Reason: Hypoglycemia Protocol Stop: 10/06/19 22:03 Last Admin: 09/11/19 16:23 Dose: 15 gm Documented by: Morphine Sulfate (Roxanol) 5 mg PO Q4 PRN PRN Reason: Dyspnea Stop: 10/03/19 11:26 Nystatin (Mycostatin) 5 ml PO QID [facility] Stop: 09/21/19 20:59 Last Admin: 09/19/19 16:44 Dose: Not Given Documented by: Pantoprazole Sodium (Protonix) 40 mg PO DAILY [facility] Stop: 10/07/19 08:59 Last Admin: 09/19/19 08:34 Dose: 40 mg Documented by: Prednisone (Prednisone) 40 mg PO QAM [facility] Stop: 10/18/19 08:59 Last Admin: 09/19/19 08:34 Dose: 40 mg Documented by: Saccharomyces Boulardii (Florastor) 250 mg PO DAILY [facility] Stop: 10/18/19 14:14 Last Admin: 09/19/19 08:35 Dose: 250 mg Documented by: Sucralfate (Carafate) 1 gm PO QID [facility] Stop: 10/11/19 20:59 Last Admin: 09/19/19 16:44 Dose: Not Given Documented by: Terazosin HCl (Hytrin) 5 mg PO DAILY [facility] Stop: 10/07/19 08:59 Last Admin: 09/19/19 08:34 Dose: 5 mg Documented by: Umeclidinium/Vilanterol (Anoro Ellipta 62.5/25 Mcg Inh) 1 puffs INH DAILY [facility] Stop: 10/12/19 16:14 Last Admin: 09/19/19 08:37 Dose: 1 puffs Documented by: PG Care Time/CCT Total # of Minutes Spent Total Time Spent: 70 Total Time Spent with Patient: Total time spent is greater than 50% in coordination of care (as documented) at patient's floor/unit and/or counseling patient: examined patient twice, responded to Abhishek Perkins, interpreting EKG, reviewed all labs from morning and then repeat labs from code maddie talking with family initially at the bedside then held prolonged meeting with family in waiting room talking about options, talking about comfort care here in the hospital met with family one last time, discussed plan to go with comfort care here in hospital as he is declining followed up with RN twice to make sure patient comfortable Prolonged Care Time Prolonged Care Time: Yes Total Prolonged Care Time: 40 Coding Level of Care Code 58238 Subseq Hosp Care Lvl 3 Diagnoses Acute and chronic respiratory failure with hypoxia J96.21 Thrombocytopenia D69.6 Hypercalcemia E83.52 Aspergillus fumigatus B44.89 Pneumonia J18.9 Laterality: right Lung location: middle lobe of lung Pneumonia type: due to unspecified organism COPD exacerbation J44.1 Interstitial lung disease J84.9 Diabetes mellitus type 2, uncontrolled E11.65 Hemolytic anemia D59.1 Hemolytic anemia type: acquired, autoimmune, other CAD (coronary artery disease) I25.10 Associated angina: without angina Coronary Disease-Associated Artery/Lesion type: [place] artery [place] vs. transplanted heart: [place] heart Chronic systolic CHF (congestive heart failure) I50.22 CLL (chronic lymphocytic leukemia) C91.90 BPH (benign prostatic hyperplasia) N40.0 GERD without esophagitis K21.9 Hyperlipidemia E78.5 HTN (hypertension) I10 History of stroke Z86.73 Dysphagia R13.10 DVT prophylaxis Z29.9 Additional Codes Prolonged Care Time - Prolonged Care Time: Yes ([id number]) (1) Hemolytic anemia Hemolytic anemia type: acquired, autoimmune, other Qualified Code(s): D59.1 - Other autoimmune hemolytic anemias (2) CAD (coronary artery disease) Associated angina: without angina Coronary Disease-Associated Artery/Lesion type: [place] artery [place] vs. transplanted heart: [place] heart Qualified Code(s): I25.10 - Atherosclerotic heart disease of [place] coronary artery without angina pectoris (3) Pneumonia Laterality: right Lung location: middle lobe of lung Pneumonia type: due to unspecified organism Qualified Code(s): J18.9 - Pneumonia, unspecified organism
[2019-09-19] MEDS: ATORVASTATIN 40 MG TAB PO SCH (22:21)
[2019-09-19] MEDS ORDERED: LORazepam 0.5 MG/1 ML VIAL IV PRN (22:23)
[2019-09-19] MEDS ORDERED: MoRPHine SULFATE 2 MG/ML CARP IV PRN (22:23)
[2019-09-20] MEDS: LOPERAMIDE HCL 2 MG CAP PO SCH (05:57)
[2019-09-20] MEDS: FUROSEMIDE 20 MG TAB PO SCH (09:41)
--- NOTE | 2019-09-20 10:51 | Discharge Summary ---
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 He then noted that his pulse ox was in the 60s on his home pulse ox which was consistent with his pulse ox when he first came into the ER today. He denies any fevers or chills at home. He has only been bringing up a small amount of clear sputum. He denies any chest pain. He has been on home oxygen now for several months at 3 L nasal cannula at rest and 5 L nasal cannula with exertion. In the ER, he was placed immediately on a nonrebreather and given a nebulizer treatment after which he felt much better. He was weaned down to 7 L via oxygen mask when I saw him at the time of admission. An ABG showed pH 7.45, PaCO2 45, PaO2 82 on 7 L O2. A proBNP was normal, troponin was negative, he was afebrile and had no leukocytosis. A CT angiogram of the chest however was negative for PE, but showed underlying interstitial lung disease with subpleural reticulation, bronchiectasis, and groundglass opacities with a mosaic distribution as well as a 4 cm focal area of nodular consolidation within the right middle lobe favoring infectious/inflammatory process over neoplasm. He was given a dose of IV Rocephin and IV doxycycline in the ER and was much improved when I saw him. Principal Diagnosis PNEUMONIA, ACUTE ON CHRONIC RESPIRATORY FAILURE WITH HYPOXIA Discharge Exam Constitutional WD/WN, vitals as above Eyes PERRL, conjunctivae normal, anicteric sclerae ENMT external ear and nose normal, oropharynx normal Neck trachea midline, no thyromegaly Respiratory normal respiratory effort (With oxygen mask in place) Auscultation: + rhonchi (Bilateral lower lung smilye) and + wheezes (Diffuse, expiratory); no crackles Cardiovascular RRR, no murmur, no edema Chest (Breasts) Chest: normal inspection of chest Gastrointestinal (Abdomen) normal bowel sounds, soft, nontender, no hepatosplenomegaly Musculoskeletal Extremities: extremities normal to inspection; no cyanosis and no clubbing Skin no rashes, warm and dry Neurologic moves all extremities and awake; no focal motor deficits Psychiatric A+Ox3, euthymic affect Lymphatic no lymphedema Discharge Data Allergies Allergy/AdvReac Type Severity Reaction Status Date / Time atorvastatin [From Lipitor] Allergy Unknown Verified 09/01/19 09:00 rosuvastatin [From Crestor] Allergy Verified 09/01/19 09:00 Consultations 09/06/19 17:45 ED Decision to Admit Stat 09/12/19 09:21 Consult Hematology Routine 09/12/19 15:24 Consult Pulmonology Routine 09/16/19 10:16 Consult Infectious Diseases Routine Ordered Studies 09/06/19 14:51 CT angio chest PE protocol Stat 09/13/19 10:00 FL video swallow Routine Chest x-ray x5 Hospital Course (1) Pneumonia: Acute and chronic respiratory failure with hypoxia: 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 Baseline NC O2 requirements 4-5 L. 8/5: ABG with pH 7.4, CO2 50's, paO2 100's Had a very prolonged hospitalization for pneumonia and with underlying lung disease, was decompensating and had an episode where he became unresponsive with standing up likely secondary to a vasovagal episode. After that he became more labored with his breathing and very fatigued and decision was made to transition to comfort measures only as per patient's wishes along with discussion with family. breathing had been stable on 4L, then worsened and was requiring 6-9 L by the time of discharge He was having more work of breathing and was not tolerating treatments Discontinued the hypertonic saline, stop nebulizers, stop vibratory vest Transitioned to comfort measures in place no lab draws, no vitals, stop all medications that do not provide comfort -Upon discharge, will continue Roxanol 5mg p.o. every hour as needed and Ativan 1 mg p.o./SL every 6 hours as needed anxiety or agitation Able to transition to home hospice today as he is stable to slightly improved from yesterday-patient and family are very grateful that he can go home with hospice (2) Thrombocytopenia: drop in platelets was acute, as platelets were normal at admission. the drop in platelets parallels the rapid rise in calcium. also has blasts on differential over past week HIT theoretically possible, Lovenox stopped, plts stable for five days, > 40 could be due to Rocephin which has been completed, but this is considered low likelihood DIC w/u negative (normal PT, PTT, fibrinogen) peripheral smear without smudge cells, just some abnormal PMNs, can be seen in several conditions thus TTP unlikely with his history of CLL, could be changing to MDS, LDH very high which has been cause for concern in the past Dr. Cash met with patient, he does not feel the CLL is causing the thrombocytopenia no signs of bleeding/bruising unsure that he would do well with platelet transfusion as his lungs already have fluid on them No need to follow further labs, no treatment planned for platelets (3) Hypercalcemia: down to 8.3/resolved treated with Zometa 4mg IV x 1, IV fluids (which are now stopped) no further IV Lasix continue PO Lasix daily, Cr is stable PTH low, vitamin D low, PTH-related peptide low no further labs, palliative approach (4) Aspergillus fumigatus: sputum culture from 09/08 grew out Aspergillus Aspergillus antibodies and Beta 1,3 D Glucan sent out, results still pending likely colonization given his chronic lung disease consulted ID from [facility] for their opinion, agreed that likely colonization no signs of active fungal infection on CT chest stop Voriconazole fungal pneumonia RULED OUT (5) Pneumonia: RML. CXR 09/08 with b/l infiltrates -- uncertain if b/l infiltrates are from infection vs ILD. completed full 7 day course of IV rocephin. completed 5 day course of zithromax. Blood cx's negative. COVID-19 negative. stopped all nebulizers, inhaled treatments, vibratory vest as patient's status declining comfort measures Sputum gram stain with moderate GNR but culture grew aspergillus - likely colonized after discussing with pulmonology confirmed this with [facility] ID service discussed with patient at the bedside with his present, he said that he would NOT want intubated and placed on ventilator if he deteriorated he would NOT want heroic measures if his heart would stop changed to DNR/DNI on 09/14 (6) COPD exacerbation: Prednisone 40mg daily was discontinued Nebulizers discontinued no further antibiotics (7) Interstitial lung disease: as seen on chest CT this admission on chronic prednisone for AIHA as well as his lung disease this is likely idiopathic hospice care (8) Diabetes mellitus type 2, uncontrolled: stopped Lantus, stop blood sugar checks comfort care (9) 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 at home for such H/H stable all week, no hemolysis on peripheral smear prednisone discontinued (10) CAD (coronary artery disease): no evidence of ischemia Discontinued Asa, coreg, plavix, and MICH inhibitor Okay to continue Lasix for comfort to keep fluid off and keep calcium levels down he is statin intolerant (11) Chronic systolic CHF (congestive heart failure): EF 45-50% remains compensated cont lasix 20mg daily (12) CLL (chronic lymphocytic leukemia): noted follows with heme/onc, Dot Martínez concomitant autoimmune hemolytic anemia No further follow-up (13) BPH (benign prostatic hyperplasia): cont finasteride cont terazosin No need for Donohue catheter placement for discharge at this time (14) GERD without esophagitis: No need for PPI at home (15) Hyperlipidemia: statin intolerant (16) HTN (hypertension): No need for medications on discharge (17) History of stroke: Aspirin and Plavix were discontinued (18) Dysphagia: Was treated for candidiasis and then discontinued speech consult appreciated video swallow showed no aspiration Diet for comfort as tolerated at home (19) DVT prophylaxis: Was given Lovenox SQ and SCDs Stable for home with hospice today (2) Acute and chronic respiratory failure with hypoxia: (3) Thrombocytopenia: (4) Interstitial lung disease: (5) COPD (chronic obstructive pulmonary disease): (6) Diabetes mellitus type 2, uncontrolled: (7) Chronic systolic CHF (congestive heart failure): (8) History of stroke: (9) Hypercalcemia: (10) Bronchiectasis: (11) Aspergillus fumigatus: (12) Hemolytic anemia: (13) Paroxysmal ventricular tachycardia: (14) CAD (coronary artery disease): (15) Cardiomyopathy: (16) BPH (benign prostatic hyperplasia): (17) CLL (chronic lymphocytic leukemia): (18) GERD without esophagitis: (19) Hyperlipidemia: (20) HTN (hypertension): Total Time Total Time Spent Total Time Spent (In Minutes): Greater than 30 minutes Total Time Includes: Examination of the Patient, Discharge Planning and Medication Reconciliation Discharge Plan Discharge Items Patient Disposition: Hospice - Home Reason For Visit: PNEUMONIA, ACUTE RESPIRATORY FAILURE W/ HYPOXIA Discharge Diagnosis: Pneumonia, Acute on chronic respiratory failure with hypoxia Condition on Discharge: Fair Activity: As commented below Lifting: None Bathing: No limitations Exercise/Sports: Rest today and As tolerated Non-emergency contact: Primary Care Provider Call non-emergency contact if: you have any medication questions, your symptoms worsen, your pain is not controlled, your pain is worsening, your pain is unusual for you and your pain is concerning for you Follow-up/Referrals: Tima Huffman DO [Primary Care Provider] - Diet: Other - See Diet Comment Diet Comment: As tolerated or desired for comfort Addtl Attending Provider Instructions: You were admitted for pneumonia and respiratory failure in the setting of chronic lung disease. You have desired to go home with hospice today. You can take Roxanol (liquid morphine) as needed for pain or shortness of breath. You ca n take Ativan (lorazepam) as needed for anxiety or agitation. Your home hospice agency will be able to assist you with anything you need from here on out and you do not need any doctor's appointments scheduled for follow up. Pending Studies at Discharge: No Stand-Alone Forms: [facility] Medications and DC Order Prescriptions: New loperamide 2 mg Capsule 2 mg PO Q6 Qty: 30 RF: 0 lorazepam 1 mg tablet 1 mg sublingual Q6 PRN (Reason: anxiety or agitation) Qty: 10 RF: 0 morphine concentrate 100 mg/5 mL (20 mg/mL) solution 5 mg PO Q1H PRN (Reason: pain or shortness of breath) Qty: 30 RF: 0 Continued furosemide [Lasix] 20 mg tablet 20 mg PO DAILY RF: 0 Discontinued folic acid 1 mg tablet 1 mg PO DAILY Qty: 30 RF: 0 aspirin 81 mg tablet,delayed release (DR/EC) 81 mg PO DAILY RF: 0 citalopram 20 mg tablet 20 mg PO DAILY Qty: 30 RF: 5 carvedilol 3.125 mg tablet 3.125 mg PO BID Qty: 180 RF: 1 clopidogrel 75 mg tablet 75 mg PO DAILY Qty: 90 RF: 1 glimepiride 1 mg tablet 1 mg PO DAILY Qty: 90 RF: 1 terazosin 5 mg capsule 5 mg PO DAILY Qty: 90 RF: 1 pantoprazole 40 mg tablet,delayed release (DR/EC) 40 mg PO DAILY Qty: 90 RF: 3 fenofibrate micronized 134 mg capsule 134 mg PO DAILY Qty: 90 RF: 3 meclizine 25 mg tablet 25 mg PO TID PRN (Reason: dizziness) Qty: 90 RF: 0 alprazolam 0.25 mg tablet 0.25 mg PO BID PRN (Reason: anxiety) Qty: 60 RF: 0 lisinopril 20 mg tablet 10 mg PO DAILY Qty: 90 RF: 3 ascorbate calcium (vitamin C) 500 mg tablet 500 mg PO DAILY RF: 0 magnesium oxide 400 mg (241.3 mg magnesium) tablet 400 mg PO DAILY RF: 0 finasteride 5 mg tablet 5 mg PO DAILY Qty: 90 RF: 1 Discharge Orders: Discharge Order (Routine); Ordered 09/20/19 Ordered By: Shy Lin/Other Patient Handouts: Managing Type 2 Diabetes Admission Data Admit Date/Time: 09/06/19 20:11 Attending Provider: Shy Raines Admit Provider: Shy Raines Primary Care Provider: Tima Huffman Other Providers: Shy Raines ; Ariel Cash ; Berny Patel ; Cornelio Romeo ; Vira Ortiz ; Elia Reich I. ; Devin Mcclure II ; Barbara Ross ; Wiley Barragan ; [facility] Other Interventions: Discharge Summary Assessment (RN) Last Done: 09/20/19 12:56 DC Date/Time DO NOT enter until pt leaves facility: 09/20/19 14:11 Coding Level of Care Code D/C Day Management >30 mins Diagnoses Pneumonia J18.9 Laterality: right Lung location: middle lobe of lung Pneumonia type: due to unspecified organism Acute and chronic respiratory failure with hypoxia J96.21 Thrombocytopenia D69.6 Interstitial lung disease J84.9 COPD (chronic obstructive pulmonary disease) J44.9 Diabetes mellitus type 2, uncontrolled E11.65 Chronic systolic CHF (congestive heart failure) I50.22 History of stroke Z86.73 Hypercalcemia E83.52 Bronchiectasis J47.9 Aspergillus fumigatus B44.89 Hemolytic anemia D59.1 Hemolytic anemia type: acquired, autoimmune, other Paroxysmal ventricular tachycardia I47.2 CAD (coronary artery disease) I25.10 Associated angina: without angina Coronary Disease-Associated Artery/Lesion type: deering artery [place] vs. transplanted heart: deering heart Cardiomyopathy I42.9 BPH (benign prostatic hyperplasia) N40.0 CLL (chronic lymphocytic leukemia) C91.90 GERD without esophagitis K21.9 Hyperlipidemia E78.5 HTN (hypertension) I10
[2019-09-21 18:54] LABS: Aspergillus Flavus Negative (Negative); Aspergillus Niger Negative (Negative); Fungitell (1-3)-B-D-Glucan 212 pg/mL
== END 2019-09-20 14:11 | disposition hospice, home (50) | DRG 867 ==
LOC: ED 14:01 → SUATTDRO 20:11 → 2E 20:11